=== PATIENT | female | born 1930 | race Caucasian/White ===

== ENCOUNTER 2016-11-21 17:51 | Inpatient (IN) | payer OTHER, MEDICARE ==
[~2016-11-21] VITALS: Ht 152.4 cm; Wt 46.3 kg
[~2016-11-21 17:51] MED LIST: ADULT TUSS100 MG/5 M PO; ALBUTEROL2.5 MG/3 M INH/SOL; ANTIVERT 12.512.5 MG PO; ATIVAN0.5 M1 PO; CIPRO500 M1 PO; DRISDOL50000 UNIT PO; ESCITALOPRAM OXA5 MG PO; FERROUS SULFAT325 M2 PO; FERROUS SULFAT325 M3 PO; FLUTICASON0.05 MG/Ac NASB; KLOR-CON M2020 ME1 PO; LASIX40 M1 PO; LEVOTHYROXINE0.1 MG PO; LEVOTHYROXINE100 MC1 PO; LEXAPRO20 M1 PO; MECLIZINE HCL12.5 M1 PO; MIRTAZAPINE7.5 M1 PO; MUCINEX1200 M1 PO; OMEPRAZOLE40 M1 PO; PREDNISONE10 M2 PO; PROAIR HFA8.5 GM INH; PROBIOTIC1 EACH PO; REGLAN5 M1 PO; REMERON15 M2 PO; SPIRIVA RESPIMAT4 G1 INH; SPIRIVA RESPIMAT4 GM; SUCRETS PO; SYMBICORT 16010.2 GM INH; SYNTHROID112 MCG PO; TRAZODONE HCL50 M1 PO; TUMS200 MG PO; VITAMIN B-121000 MC3 PO; VITAMIN D31000 UNI2 PO
--- NOTE | 2016-11-21 17:55 | NUR ---
PT BIBA FROM [facility] FOR C/O FEELING DIZZY AND SOB. PT WAS 89 ON RA PLACED ON 4L VIA NC SAT INCREASED TO 98%. PT IS ALERT AND ORIENTED. PT REPORTS SHE HAD DIARRHEA LAST EVENING AND STATES SHE DOESN'T EAT MUCH AND SHE FEELS LIKE SHE IS DEHYDRATED./
--- NOTE | 2016-11-21 17:59 | ED DYSPNEA/ASTHMA COMPLAINT ---
History of Present Illness General Chief Complaint: Dyspnea (COPD, CHF, Other) Stated Complaint: SOB Source: patient Exam Limitations: no limitations Vital Signs & Intake/Output Vital Signs & Intake/Output Vital Signs Date Time Temp Pulse Resp B/P Pulse O2 O2 Flow FiO2 Ox Delivery Rate 11/21 2240 94 Nasal 2.0L Cannula 11/21 2230 98.4 93 22 110/61 94 Nasal 2.0L Cannula 11/21 2126 100.9 92 18 119/65 100 Nasal 2.0L Cannula 11/21 1848 95 Nasal 2.0L Cannula 11/21 1803 98.7 87 20 116/55 100 Nasal 3.0L Cannula ED Intake and Output 11/22 0000 11/21 1200 Intake Total 1000 Output Total Balance 1000 Intake, IV 1000 Intake, Oral 0 Patient 102 lb Weight Allergies Coded Allergies: Iodinated Contrast Media - Oral and (Iodinated Contrast Media - IV Dye) (IVP DYE HIVES 03/12/16) Reconcile Medications Albuterol Sulfate (Proair Hfa) 8.5 GM HFA.AER.AD 2 PUF INH Q4H PRN SOB/WHEEZE (Reported) Albuterol Sulfate 2.5 MG/3 ML VIAL.NEB 1 Vial INH/SUSAN Q2H PRN SOB (Reported) Budesonide/Formoterol Fumarate (Symbicort 160-4.5 Mcg Inhaler) 10.2 GM HFA.AER.AD 2 PUF INH BID COPD (Reported) Calcium Carbonate (TUMS) (Unknown Strength) TAB.CHEW (Unknown Dose) PO AD GI (Reported) Calcium Polycarbophil (Fibercon) 625 MG TABLET 1 TAB PO HS PRN PRN BOWEL ( Reported) Cephalexin 500 MG CAPSULE 1 CAP PO BID UTI Cholecalciferol (Vitamin D3) 1,000 UNIT TABLET 1 TAB PO DAILY SUPPLEMENT ( Reported) Cyanocobalamin (Vitamin B-12) 1,000 MCG TABLET 1 TAB PO DAILY VITAMIN SUPPORT (Reported) Docusate Sodium (Colace) 100 MG CAPSULE 1 CAP PO EVERY OTHER DAY BOWEL REGIMEN (Reported) Ergocalciferol (Vitamin D2) (Drisdol) 50,000 UNIT CAPSULE 1 CAP PO Q30D SUPPLEMENT (Reported) Escitalopram Oxalate (Lexapro) 20 MG TABLET 1 TAB PO DAILY DEPRESSION ( Reported) Ferrous Sulfate 325 MG TABLET 1 TAB PO QHS SUPPLEMENT (Reported) Furosemide (Lasix) 20 MG TABLET 1 TAB PO PRN PRN FLUID (Reported) Guaifenesin (Adult Tussin Chest Congestion) (Unknown Strength) LIQUID (Unknown Dose) PO AD COUGH (Reported) Levothyroxine Sodium 100 MCG TABLET 1 TAB PO DAILY THYROID (Reported) Loratadine/Pseudoephedrine (Claritin-D 12 Hour Tablet) 5 MG-120 MG TAB.ER.12H 1 TAB PO QAM PRN PRN ALLERGIES (Reported) Melatonin 3 MG TABLET 1 TAB PO QPM PRN INSOMNIA (Reported) Omeprazole 40 MG CAPSULE.DR 1 CAP PO DAILY ACID REFLUX (Reported) Potassium Chloride (Klor-Con M20) 20 MEQ TAB.ER.PRT 1 TAB PO PRN PRN REPLENISHMENT (Reported) Sennosides (Senna) 8.6 MG TABLET 1 TAB PO HS PRN PRN CONSTIPATION (Reported) [SUCRETS ORIGINAL] 2.4 MG PO QD PRN SORE THROAT (Reported) Tiotropium [place] (Spiriva Respimat) 4 GM MIST.INHAL 1 PUFF INH DAILY COPD ( Reported) Trazodone HCl 50 MG TABLET 0.5 TAB PO QHS PRN ANXIETY (Reported) Triage Note: PT BIBA FROM [facility] FOR C/O FEELING DIZZY AND SOB. PT WAS 89 ON RA PLACED ON 4L VIA NC SAT INCREASED TO 98%. PT IS ALERT AND ORIENTED. PT REPORTS SHE HAD DIARRHEA LAST EVENING AND STATES SHE DOESN'T EAT MUCH AND SHE FEELS LIKE SHE IS DEHYDRATED./ Triage Nurses Notes Reviewed? yes HPI: This patient is an 86-year-old female with a past medical history including hypertension and COPD who presented to the emergency department today brought in by ambulance from an [facility] for evaluation of difficulty breathing and dizziness. 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 The patient reported that while she was on the elevator yesterday she started to feel dizzy. She reported that she started to fall, "but I caught myself." She denied hitting her head or losing consciousness. The patient reported that today her breathing feels, "not right. " She denied any chest pain, headaches, arm pain, numbness or tingling in her extremities, jaw pain, abdominal pain, or vomiting. She did report some mild associated nausea. Patient reported that she has been having some diarrhea, but reported that she is currently on a stool softener and, "that usually makes me have diarrhea." (ISI RODGERS PA-C) Past History Medical History Any Pertinent Medical History? see below for history Neurological: NONE EENT: macular degeneration Cardiovascular: hypertension, mitral regurgitation (SEVERE) Respiratory: COPD, pulmonary hypertension Gastrointestinal: NONE Hepatic: NONE Renal: NONE Musculoskeletal: disk herniation, spinal stenosis Psychiatric: anxiety, depression Endocrine: hypothyroidism Blood Disorders: PERNICIOUS ANEMIA Cancer(s): NONE LADLER/Reproductive: NONE History of MRSA: No History of VRE: No History of CDIFF: No Tetanus Vaccine: 11/01/15 Surgical History Surgical History: hysterectomy, spinal surgery Psychosocial History Who do you live with Spouse Services at Home Nursing What is your primary language [place] Family History Family History, If Any: FATHER (Colon Cancer, ). MOTHER (RA, ). Hx Contributory? No (ISI RODGERS PA-C) Review of Systems Review of Systems Constitutional: Reports: no symptoms. EENTM: Reports: no symptoms. Respiratory: Reports: see HPI. Cardiovascular: Reports: no symptoms. GI: Reports: see HPI. Genitourinary: Reports: no symptoms. Musculoskeletal: Reports: no symptoms. Skin: Reports: no symptoms. Neurological/Psychological: Reports: no symptoms. All Other Systems: Reviewed and Negative (ISI RODGERS PA-C) Physical Exam Physical Exam Respiratory: normal breath sounds, chest non-tender, no respiratory distress, quiet respiration, no wheezes, rales, or rhonchi. No diminished breath sounds appreciated Comments: Well-developed well-nourished person in no acute distress HEENT: Normal EENT exam, head normocephalic/atraumatic, moist mucous membranes Nose is atraumatic Neck: Supple, no lymphadenopathy Back: Normal inspection Cardiovascular: Regular rate and rhythm with no murmurs, rubs, or gallops. No JVD. No peripheral edema noted. Capillary refill less than 2 seconds Abdomen: Soft. Nontender. Nondistended. Normoactive bowel sounds. No rebound or guarding Extremity: No edema, no calf tenderness to palpation, normal and equal pulses. Neuro: Alert oriented x3, cranial nerves II through XII grossly intact. Skin: No appreciable rash on exposed skin, skin is warm and dry. Psych: Mood and affect is normal Core Measures ACS in differential dx? Yes Severe Sepsis Present: No Septic Shock Present: No (ANA MARIA PEREZ,ISI) Progress Differential Diagnosis: asthma, AMI, bronchitis, costochondritis, CHF, COPD, musculoskeletal pain, pericarditis, pulmonary embolism, pneumonia, pneumothorax, unstable angina Plan of Care: Orders Procedure Date/time Status Nothing by Mouth 11/22 B Active Nothing by Mouth 11/21 D Complete Pathway - chart 11/21 2258 Active House Staff 11/21 2258 Active Patient Data 11/21 2258 Active Code Status 11/21 2258 Active Teach/Educate 11/21 2223 Active Nutritional Intake, Monitor 11/21 2223 Active Isolation 11/21 2223 Active Patient Care Conference 11/21 2223 Active Activity/Ambulation 11/21 2223 Active EKG 11/21 2129 Active URINE OSMOLALITY 11/21 2036 Complete Patient Data 11/21 195 Active MISTAKE 11/21 1918 Active Saline Lock 11/21 1914 Active Misc Message 11/21 1914 Active ED Holding Orders 11/21 1914 Active Admit to inpatient 11/21 191 Active Vital Signs 11/21 1914 Active Code Status 11/21 191 Complete SERUM OSMOLALITY 11/21 1818 Complete Intake & Output 11/21 1813 Active ARTERIAL BLOOD GAS (GEN) 11/21 1800 Complete BLOOD CULTURE 11/21 1800 Active URINALYSIS 11/21 1800 Complete TROPONIN LEVEL 11/21 1800 Complete MAGNESIUM 11/21 1800 Complete LACTIC ACID 11/21 1800 Complete COMPREHENSIVE METABOLIC PANEL 11/21 1800 Complete CBC WITHOUT DIFFERENTIAL 11/21 1800 Complete EKG 11/21 1800 Active SWALLOW EVALUATION 11/21 UNK Active TRC EVALUATION (GEN) 11/21 UNK Active Lab Add-on Test 11/21 UNK Active Current Medications Sig/Keesha Start time Last Medication Dose Stop Time Status Admin Cholecalciferol 1,000 IU DAILY 11/22 1000 AC (Vitamin D) Cyanocobalamin 1,000 MCG DAILY 11/22 1000 AC (Vitamin B12) Escitalopram Oxalate 10 MG DAILY 11/22 1000 AC (Lexapro) Tiotropium [place] 1 PUF DAILY 11/22 1000 AC (Spiriva) Omeprazole 40 MG DAILY AC 11/22 0700 AC (Prilosec) Heparin Sodium 5,000 UNIT Q8 11/22 06 AC (Porcine) Albuterol Sulfate 3 ML Q4 HRS NEEDED PRN 11/21 2315 AC (Proventil) Laboratory Tests 11/21/16 2100: Lactic Acid Cancelled 11/21/162036: Urine Osmolality 267 L 11/21/162036: Urine Color YEL, Urine Clarity HAZY H, Urine pH 6.0, Ur Specific Cyp[place] 1.010, Urine Protein 100 H, Urine Ketones NEG, Urine Nitrite NEG, Urine Bilirubin NEG, Urine Urobilinogen 0.2, Ur Leukocyte Esterase LARGE H, Ur Microscopic SEDIMENT EXAMINED, Urine RBC 15-25 H, Urine WBC > 75 H, Ur Epithelial Cells MANY H, Urine Hemoglobin SMALL H, Urine Glucose NEG 11/21/161817: Anion Gap 9, Estimated GFR 39 L, BUN/Creatinine Ratio 25.4 H, Glucose 98, Serum Osmolality 282 L, Lactic Acid 1.3, Calcium 8.8, Magnesium 1.6, Total Bilirubin 0.5, AST 17, ALT 28, Alkaline Phosphatase 88, Troponin I 0.03, Total Protein 6.0 L, Albumin 2.9 L, Globulin 3.1, Albumin/Globulin Ratio 0.9 L, CBC w Diff MAN DIFF ORDERED, RBC 4.36, MCV 81.4, MCH 27.0, RDW 15.3 H, MPV 7.2 L, Gran % 93.2 H, Lymphocytes % 2.2 L, Monocytes % 4.5, Eosinophils % 0, Basophils % 0.1, Absolute Granulocytes 24.3 H, Segmented Neutrophils 80 H, Band Neutrophils 12 H, Absolute Lymphocytes 0.6 L, Lymphocytes 2 L, Monocytes 6, Absolute Monocytes 1.2 H, Absolute Eosinophils 0, Absolute Basophils 0, Platelet Estimate ADEQUATE, Normochromic RBCs VERIFIED, Anisocytosis 1+, PUBS MCHC 33.2 11/21/161814: pH 7.48 H, pCO2 34 L, pO2 68 L, HCO3 25, ABG O2 Sat (Measured) 94.0 L, P-50 (Temp Corrected) Y, Carboxyhemoglobin 0.4 L, O2 Concentration % RM/AIR, Temperature 98.3, O2 Delivery Method RA, Phlebotomy Draw Site RIGHT RADIAL Microbiology 11/21 1848 BLOOD: Blood Culture - RECD 11/21 1817 BLOOD: Blood Culture - RECD Diagnostic Imaging: Viewed by Me: Radiology Read. Discussed w/RAD: Radiology Read. CXR Impression: PATIENT: DHEERAJ ZAMUDIO PRESENT AGE: 86 PATIENT ACCOUNT NO: [id number] : 31 LOCATION: [facility] ORDERING PHYSICIAN: IIS RODGERS PA-C SERVICE DATE: 11/21/16 EXAM TYPE: RAD - XRY-PORTABLE CHEST XRAY EXAMINATION: XR PORTABLE CHEST CLINICAL INFORMATION: Evaluate for pneumonia COMPARISON: Chest x-rays most recent prior dated 2015 TECHNIQUE: Portable AP view of the chest was obtained. FINDINGS: Cardiomegaly with mild prominence of the pulmonary markings compatible with chronic change. Left basilar opacity also seen on the previous examination demonstrating improved aeration in the left lateral base. No acute airspace opacity. Bony thorax is intact. IMPRESSION: Chronic changes. No acute airspace disease. DICTATED BY: BRADY ENCARNACION MD DATE/TIME DICTATED:11/21/161825 PROC TECH:ENRIQUETA DATE/TIME TRANSCRIBED:11/21/161825 CONFIDENTIAL, DO NOT COPY WITHOUT APPROPRIATE AUTHORIZATION. <Electronically signed in Other Vendor System> SIGNED BY: BRADY ENCARNACION MD 11/21/16 1830 Initial ED EKG: normal intervals, LVH, nonspecific ST T wave chg, 86 BPM (ANA MARIA PEREZ,ISI) Departure Departure Disposition: STILL A PATIENT Condition: Stable Clinical Impression Primary Impression: Hypoxia Secondary Impressions: Acute kidney injury Leukocytosis Qualifiers: Leukocytosis type: unspecified Qualified Code: D72.829 - Elevated white blood cell count, unspecified Referrals: MARTINA ABREU MD (PCP/Family) Departure Forms: Customer Survey General Discharge Information Prescriptions: Current Visit Scripts Cephalexin 1 CAP PO BID #[id number] CAP Admission Note Spoke With: LIDIA HOWARD MDSe Documentation of Exam: Documentation of any treatments & extenuating circumstances including Concerns Regarding Discharge (functional status, medication knowledge or non-compliance, living conditions, etc.) that warrant an admission rather than observation: [ This patient is an 86-year-old female with a past medical history including COPD and pulmonary hypertension who presented to the emergency department today for evaluation of dizziness and shortness of breath. Hypoxic at 87% on room air. This patient is not typically on oxygen at home. White blood cell count 26.1. Respiratory alkalosis. Acute kidney injury with creatinine at 1.3. This patient should be admitted to general medicine for trend labs, pulmonary consultation, gentle hydration, follow up urinalysis and urine culture, follow- up blood culture, oxygen therapy, and close monitoring. Premature discharge could prove medically harmful.] (ANA MARIA PEREZ,ISI) PA/AUTOMOTIVE BRAKE SPECIALIST Co-Sign Statement Statement: ED Attending supervision documentation- [] I saw and evaluated the patient. I have also reviewed all the pertinent lab results and diagnostic results. I agree with the findings and the plan of care as documented in the PA's/AUTOMOTIVE BRAKE SPECIALIST's documentation. x] I have reviewed the ED Record and agree with the PA's/AUTOMOTIVE BRAKE SPECIALIST's documentation. [] Additions or exceptions (if any) to the PAs/AUTOMOTIVE BRAKE SPECIALIST's note and plan are summarized below: [] (RENETTA CABAN,ANA High) Critical Care Note Critical Care Note Critical Care Time: 30-74 min (ANA MARIA PEREZ,ISI)
--- NOTE | 2016-11-21 18:29 | NUR ---
EVALUATED BY LEN RODGERS. EKG DONE.
--- NOTE | 2016-11-21 18:30 | RADIOLOGY REPORT ---
EXAMINATION: XR PORTABLE CHEST CLINICAL INFORMATION: Evaluate for pneumonia COMPARISON: Chest x-rays most recent prior dated 07/11/2016 TECHNIQUE: Portable AP view of the chest was obtained. FINDINGS: Cardiomegaly with mild prominence of the pulmonary markings compatible with chronic change. Left basilar opacity also seen on the previous examination demonstrating improved aeration in the left lateral base. No acute airspace opacity. Bony thorax is intact. IMPRESSION: Chronic changes. No acute airspace disease.
--- NOTE | 2016-11-21 18:47 | NUR ---
PT STATES SHE IS LEGALLY BLIND; ALSO REPORTS SHE ALMOST FELL YESTERDAY DUE TO DIZZINESS.
[2016-11-21 18:54] LABS: ABSOLUTE BASOPHIL COUNT 0 /CUMM (0.0-0.2); ABSOLUTE EOSINOPHIL COUNT 0 /CUMM (0.0-0.7); ABSOLUTE GRANULOCYTE CT 24.3 /CUMM (1.4-6.5); ABSOLUTE LYMPH COUNT 0.6 /CUMM (1.2-3.4); ABSOLUTE MONOCYTE COUNT 1.2 /CUMM (0.10-0.60); BASOPHIL % 0.1 % (0.0-2.0); EOSINOPHIL % 0 % (0-5); GRANULOCYTE % 93.2 % (42.2-75.2); HEMATOCRIT 35.5 % (37-47); MEAN CORPUSCULAR HGB CONC 33.2 G/DL (33.0-37.0); MEAN CORPUSCULAR VOLUME 81.4 FL (81.0-99.0); MEAN PLATELET VOLUME 7.2 FL (7.4-10.4); PLATELET COUNT 246 /CUMM (130-400); RBC DISTRIBUTION WIDTH 15.3 % (11.5-14.5); RED BLOOD CELL CT 4.36 /CUMM (4.20-5.40); WHITE BLOOD CELL COUNT 26.1 /CUMM (4.8-10.8)
--- NOTE | 2016-11-21 19:06 | NUR ---
RECEIEVED REPORT FROM BRIANA CHAN, ASSUMED PT CARE AT THIS TIME, PT RESTING IN STRETCHER, WILL CONTINUE TO MONITOR
--- NOTE | 2016-11-21 20:14 | NUR ---
HOUSE STAFF AT BEDSIDE FOR PT EVAL
--- NOTE | 2016-11-21 20:37 | NUR ---
PT PLACED ON BED WANG FOR URINE SAMPLE BY THIS RN AND BRIANA CHAMPION. PT CLEANED AND REPOSITIONED FOR COMFORT.
--- NOTE | 2016-11-21 21:03 | NUR ---
TELEVISION TURNED ON TO THE NEWS PER PT REQUEST.
--- NOTE | 2016-11-21 21:28 | NUR ---
PT TO ROOM 216 BED 1
--- NOTE | 2016-11-21 21:58 | NUR ---
REPORT GIVEN TO BRIANA COWART
[2016-11-21 22:30] VITALS: BP 110/61
--- NOTE | 2016-11-21 22:30 | History & Physical ---
ALEENA CABAN,MIGUEL 11/21/16 2230: General Information and HPI MD Statement: I have seen and personally examined DHEERAJ ZAMUDIO and documented this H&P. The patient is a 86 year old F who presented with a patient stated chief complaint of [dizziness]. Source of Information: patient Exam Limitations: no limitations History of Present Illness: Patient is a 86-year-old lady who is BIBA to the ED due to dizziness and feeling weak. Patient reports that last night as she was walking to get to the elevator she felt dizzy and started to fall, however did not lose consciousness and did not fall. also denies chest pain, palpitation, SOB. Reports coughing and bringing up small amount of sputum, which is white and thick and is not worsened recently. Patient denies headache, denies fever, chills, abdominal pain, nausea vomiting. Denies dysuria but reports frequency and nocturia. Reports poor appetite. Denies constipation or diarrhea but uses stool softened and reports loose stools. Of not patient is blind on the left eye and has impaired vision on the right side. she does not know about changes in the urine, or if there has been blood in the urine. Patient was recently admitted to [facility] in March 2016 due to hypotension and was diagnosed with CHF and acute COPD exacerbation. she was also found to be hyponatremic and hypokalemic. Since then she gets SOB on ambulation, but it has not worsened recently. Also uses two pillows while sleeping which has not changed recently. Patient follows with Dr. Flores. Also patient gives a recent history of UTI in October. Allergies/Medications Allergies: Coded Allergies: Iodinated Contrast Media - Oral and (Iodinated Contrast Media - IV Dye) (IVP DYE HIVES 03/12/16) Home Med list Albuterol Sulfate (Proair Hfa) 8.5 GM HFA.AER.AD 2 PUF INH Q4H PRN SOB/WHEEZE (Reported) Albuterol Sulfate 2.5 MG/3 ML VIAL.NEB 1 Vial INH/SUSAN Q2H PRN SOB (Reported) Budesonide/Formoterol Fumarate (Symbicort 160-4.5 Mcg Inhaler) 10.2 GM HFA.AER.AD 2 PUF INH BID COPD (Reported) Calcium Carbonate (TUMS) (Unknown Strength) TAB.CHEW (Unknown Dose) PO AD GI (Reported) Cholecalciferol (Vitamin D3) 1,000 UNIT TABLET 1 TAB PO DAILY SUPPLEMENT ( Reported) Cyanocobalamin (Vitamin B-12) 1,000 MCG TABLET 1 TAB PO DAILY VITAMIN SUPPORT (Reported) Ergocalciferol (Vitamin D2) (Drisdol) 50,000 UNIT CAPSULE 1 CAP PO Q30D SUPPLEMENT (Reported) Escitalopram Oxalate (Lexapro) 10 MG TABLET 1 TAB PO DAILY MENTAL HEALTH ( Reported) Ferrous Sulfate 325 MG TABLET 1 TAB PO QHS SUPPLEMENT (Reported) Guaifenesin (Adult Tussin Chest Congestion) (Unknown Strength) LIQUID (Unknown Dose) PO AD COUGH (Reported) Levothyroxine Sodium 100 MCG TABLET 1 TAB PO DAILY THYROID (Reported) Metoclopramide HCl (Reglan) 5 MG TABLET 1 TAB PO Q6H GERD/VOMITING TAKE 30 MINUTES PRIOR TO EATING AND PRIOR TO BEDTIME Mirtazapine (Remeron) 15 MG TABLET 1 TAB PO QHS SLEEP (Reported) Omeprazole 40 MG CAPSULE.DR 1 CAP PO DAILY GERD Tiotropium [place] (Spiriva Respimat) 4 GM MIST.INHAL 1 PUFF INH DAILY COPD ( Reported) Trazodone HCl 50 MG TABLET 0.5 TAB PO Q4H PRN ANXIETY (Reported) Past History Travel History Traveled to [place] past 21 day No Medical History Neurological: NONE EENT: macular degeneration Cardiovascular: hypertension, mitral regurgitation (SEVERE) Respiratory: COPD, pulmonary hypertension Gastrointestinal: NONE Hepatic: NONE Renal: NONE Musculoskeletal: disk herniation, spinal stenosis Psychiatric: anxiety, depression Endocrine: hypothyroidism Blood Disorders: PERNICIOUS ANEMIA Cancer(s): NONE PRESSURE DISPATCHER/Reproductive: NONE History of MRSA: No History of VRE: No History of CDIFF: No Tetanus Vaccine: 11/01/15 Surgical History Surgical History: hysterectomy, spinal surgery Past Family/Social History Family History Relations & Conditions if any FATHER (Colon Cancer, ). MOTHER (RA, ). Psychosocial History Services at Home: Nursing Primary Language: Nepalese Smoking Status: Former Smoker (heavy smoker,quit 8 months ago) ETOH Use: denies use Living Will? yes Power of Senior Stereo Compiler Team Lead/HCP? no Functional Ability ADLs Independent: dressing, eating, toileting, bathing. Ambulation: independent (has walker does not use it) IADLs Independent: shopping, housework, finances, food prep, telephone. Needs Assist: transportation (in assisted living facilily), medication admin. Review of Systems Review of Systems Constitutional: Reports: malaise, weakness. Denies: chills, diaphoresis, fever. EENTM: Reports: blurred vision. Denies: visual changes, hearing changes, throat pain, throat swelling. Cardiovascular: Denies: chest pain, palpitations, peripheral edema, syncope (near syncope). Respiratory: Reports: sputum production. Denies: cough (thick and white, small amount). GI: Denies: abdominal pain, constipation, diarrhea, nausea, bloody stool, changes in stool, vomiting. Genitourinary: Reports: frequency, nocturia. Denies: dysuria. Musculoskeletal: Denies: back pain, joint pain, joint swelling. Skin: Reports: no symptoms. Neurological/Psychological: Denies: anxiety, depressed, headache, numbness, weakness. Hematologic/Endocrine: Reports: polyuria. Denies: bruising, bleeding, polydipsia. Immunologic/Allergic: Reports: no symptoms. Exam & Diagnostic Data Last 24 Hrs of Vital Signs/I&O Vital Signs Date Time Temp Pulse Resp B/P Pulse O2 O2 Flow FiO2 Ox Delivery Rate 11/21 2240 94 Nasal 2.0L Cannula 11/21 2230 98.4 93 22 110/61 94 Nasal 2.0L Cannula 11/21 2126 100.9 92 18 119/65 100 Nasal 2.0L Cannula 11/21 1848 95 Nasal 2.0L Cannula 11/21 1803 98.7 87 20 116/55 100 Nasal 3.0L Cannula Intake & Output 11/22 0800 11/22 0000 11/21 1600 Intake Total 1000 Output Total 300 Balance -300 1000 Intake, IV 1000 Intake, Oral 0 Output, Urine 300 Patient 46.266 kg Weight Physical Exam General Appearance Alert, Oriented X3, Cooperative, No Acute Distress Skin yhpopigmented lesions on the skin of the upper trunk and neck as well as upper extremities HEENT Atraumatic, PERRLA, EOMI, dry mucous membranes Neck Supple Cardiovascular Regular Rate, Normal S1, Normal S2, 2/6 systolic murmur Lungs decreased breath sounds, no wheezinf or rhonchi, no crackles Abdomen Normal Bowel Sounds, Soft, No Tenderness, No Hepatospenomegaly, no CVA tenderness Neurological Normal Speech, Strength at 5/5 X4 Ext, Normal Tone, Sensation Intact, Cranial Nerves 3-12 NL Extremities No Clubbing, No Cyanosis, No Edema, Normal Pulses, No Tenderness/ Swelling Vascular Normal Pulses, Pulses Symmetrical Last 24 Hrs of Labs/Contreras: Laboratory Tests 11/21/16 2100: Lactic Acid Cancelled 11/21/162036: Urine Osmolality 267 L 11/21/162036: Urine Color YEL, Urine Clarity HAZY H, Urine pH 6.0, Ur Specific [place] 1.010, Urine Protein 100 H, Urine Ketones NEG, Urine Nitrite NEG, Urine Bilirubin NEG, Urine Urobilinogen 0.2, Ur Leukocyte Esterase LARGE H, Ur Microscopic SEDIMENT EXAMINED, Urine RBC 15-25 H, Urine WBC > 75 H, Ur Epithelial Cells MANY H, Urine Hemoglobin SMALL H, Urine Glucose NEG 11/21/161817: Anion Gap 9, Estimated GFR 39 L, BUN/Creatinine Ratio 25.4 H, Glucose 98, Serum Osmolality 282 L, Lactic Acid 1.3, Calcium 8.8, Magnesium 1.6, Total Bilirubin 0.5, AST 17, ALT 28, Alkaline Phosphatase 88, Troponin I 0.03, Total Protein 6.0 L, Albumin 2.9 L, Globulin 3.1, Albumin/Globulin Ratio 0.9 L, CBC w Diff MAN DIFF ORDERED, RBC 4.36, MCV 81.4, MCH 27.0, RDW 15.3 H, MPV 7.2 L, Gran % 93.2 H, Lymphocytes % 2.2 L, Monocytes % 4.5, Eosinophils % 0, Basophils % 0.1, Absolute Granulocytes 24.3 H, Segmented Neutrophils 80 H, Band Neutrophils 12 H, Absolute Lymphocytes 0.6 L, Lymphocytes 2 L, Monocytes 6, Absolute Monocytes 1.2 H, Absolute Eosinophils 0, Absolute Basophils 0, Platelet Estimate ADEQUATE, Normochromic RBCs VERIFIED, Anisocytosis 1+, PUBS MCHC 33.2 11/21/161814: pH 7.48 H, pCO2 34 L, pO2 68 L, HCO3 25, ABG O2 Sat (Measured) 94.0 L, P-50 (Temp Corrected) Y, Carboxyhemoglobin 0.4 L, O2 Concentration % RM/AIR, Temperature 98.3, O2 Delivery Method RA, Phlebotomy Draw Site RIGHT RADIAL Microbiology 11/21 1848 BLOOD: Blood Culture - RECD 02/10 1818 BLOOD: Blood Culture - RECD Assessment/Plan Assessment: Patient is a 86-year-old lady with past medical history of recently diagnosed CHF, COPD (not on home O2), HTN, hypothyroidism (on synthroid), pernicious anemia, RA, macular degeneration and depression/anxiety who was BIB[facility] to [facility] after an episode of dizziness and near syncope as well as feeling generally weak. Patient denies palpitation, CP or SOB. Reports frequency, nocturia and loose stool. In the ED patient is found to have temperature 100.9, leukocytosis (WBC of 26.1 ), elevated creatinine 1.3 (0.7 at baseline ), UA is hazy, has high protein ( 100 mg/dl) and is high in leukocyte esterase, RBCs, WBCs, small in hemoglobin. Lactic acid is 1.3. Patient is also found to have hyponatremia at 128, with urine osmolality of 267 serum osmolality of 282. Chest X-ray shows chronic changes with no acute airspace disease. Please obtain medical records from his ECF tomorrow AM. Problem list and plan: Sepsis of urologic origin Fever and leukocytosis & active UA and negative CXR suggesting sepsis in the setting of UTI. * Vital signs every shift * IV access and IV fluids * IV ceftriaxone to cover gram-negative bacteria * Urine culture * Blood culturex2 MEGAN Elevated creatinine and BUN/creatinine ratio suggesting a prerenal cause including dehydration and CHF. Patient's clinical findings and CXR are not in accord with CHF. * IV normal saline and encourage drinking * follow up BEP in AM * consider Hyponatremia Patient appears hypovolemic with dry mucous membranes, not volume overloaded. most likely etiology is volume loss from frequent loose stools. hyponatremia with low serum osmolality also could be caused by her hypothyroidism * we will give IV fluids and re-evaluate Na in AM * check TSH and free T4 History of CHF and pulmonary hypertension Patient follows with Dr. Flores. Last ECHO was performed in July 2016 and reported EF of 60-65%. Currently appears stable with no evidence of increased SOB, crackles in lungs, LE edema or CXR findings. * Consider cardiology consult and a repeat ECHO History of COPD Currently stable. She has quit smoking since 8 months ago that she was hospitalized for COPD and CHF exacerbation. Not on home oxygen. * Continue Spiriva, Symbicort, Proventil History of hypothyroidism * Continue levothyroxine * Check TSH and free T4 History of anxiety and depression * Continue mirtazapine, trazodone and Lexapro DVT prophylaxis with subcutaneous heparin NPO until after swallow eval DNR/DNI As Ranked By This Provider Problem List: 1. Dizziness 2. Hyponatremia 3. CHF (congestive heart failure) 4. COPD (chronic obstructive pulmonary disease) 5. Hypokalemia 6. Anxiety 7. Depression Core Measures/Miscellaneous Acute Coronary Syndrome ACS Diagnosis: No Cerebrovascular Accident CVA/TIA Diagnosis: No Congestive Heart Failure CHF Diagnosis: No Venous Thromboembolism VTE Risk Factors: Acute medical illness, Age > 40 VTE Prophylaxis Ordered Inpt: [facility] prophylaxis d/t: No contraindications No VTE Pharm Prophylaxis d/t: No contraindications VTE Diagnosis: No VTE Type: NONE VTE Confirmed by (Test): NONE Severe Sepsis Severe Sepsis Present: No Septic Shock Septic Shock Present: No Miscellaneous Documentation Attending Case Discussed With: RADHA HOWARD MD Primary Care Physician: MARTINA ABREU MD Patient sees these Specialists Dr. Flores, cardiology Level of Patient Care: General Medicine LIDIA HOWARD MD 11/21/16 2251: Attending MD Review Statement Attending Statement Attending MD Statement: examined this patient, discuss w/resident/PA/METAL TANK BUILDER, agreed w/resident/PA/METAL TANK BUILDER Attending Assessment/Plan: 86 yo F from [facility] (assisted living), with h/o COPD, chronic HfpEF, moderate to severe mitral regurgitation, hypothyroidism, pernicious anemia, macular degeneration, legally blind, is here for evaluation of dizziness and exertional dyspnea. This is associated with nausea, cough productive of whitish mucoud sputum. No fall, head strike or LOC. She reports being treated for UTI 3 weeks ago, and currently continues to have urinary frequency, but no dysuria. She also has been having difficulty with swallowing food. She has noticed that food stays in her throat a few hours after eating and she ends vomiting it up. She also noted diarrhea for the past week after taking stool softeners. She was last admitted to [facility] (2016) for orthostatic hypotension requiring reduction in her lasix dose. Vitals: O2 sats 88% RA --> 94% on 2L, Tmax 100.9, HR 90's, BP 110/61. Exam: awake, alert, oriented to person, not time or place. Scoliosis+. Dry mucous membranes. Chest: chronic cyst on anterior chest wall, rhonchi to left posterior base, otherwise clear, Heart S1S2 regular, systolic murmur+, Abd soft, NT. Labs: WBC 26.1, bands 12, BUN 33, creat 1.3 (baseline 0.8), Na 128, lactic acid 1.3, trop neg, ABG 7.48/34/68/25. UA positive with WBC> 75, large leukocyte esterase. CXR: chronic changes of left basilar opacity, no acute disease. EKG: SR. Echo ( 2016): EF 60-65%, moderate to severe mitral insufficiency with left atrial enlargement, pulm hypertension. 1. Sepsis (leukocytosis, bandemia, fever) with no lactic acidosis in the setting of UTI. Patient was noted to be hypoxic on ER arrival, likely in the setting of sepsis. However, cannot rule out aspiration. No evidence of pneumonia, CHF or COPD exacerbation. Her severe MR with pulmonary hypertension could be causing her exertional dyspnea as well. GM admit, panculture, aspiration and fall precautions. Check orthostats given her c/o dizziness. NPO, swallow eval in AM. Based on previous urine culture, she has grown Klebsiella hence will cover with IV ceftriaxone. Gentle hydration, avoid fluid overload. TRC nebs. Obtain Echo and Cardiology consult. Check TSH and free T4, continue synthroid. 2. MEGAN with hypovolemic hyponatremia. Check urine and serum osmolality, urine lytes. Gentle hydration, monitor renal functions. Avoid NSAIDs. Hold lasix. 3. Diarrhea in the setting of use of stool softeners. If persistent, will consider checking stool studies. 4. Previous CT evidence of adrenal nodules. Unclear if she had outpatient follow up with repeat imaging per Endo recs during her last admission. DVT ppx Hep SC. DNR/I. Please confirm CMR in AM from [facility]. BRENT LAZAR MD 11/22/16 0453: Resident Review Statement Resident Statement: examined this patient, discussed with advertising intern, agreed with advertising intern Other Findings: 86-year-old female with moderate/severe MR, hypertension, COPD, hypothyroidism, rashes anemia, presents to the ER complaining of dizziness. Stating that she felt dizzy and was about to fall however was able to avoid this and decided to come in for further evaluation. Denies chest pain, palpitations, shortness of breath admits to bringing up minimal to moderate amount of sputum which is white in color. Also reports increased frequency of her urination along with waking up multiple times at night to urinate. Denies nausea vomiting diarrhea or abdominal pain We will admit her to general medicine floor for presumed sepsis urological origin. In the past her urine culture has grown Klebsiella we will start her on IV ceftriaxone continue to hydrate her and monitor. It is possible that she may have developed aspiration pneumonia we will keep her nothing by mouth for now and get a swallow evaluation a.m. we will also monitor her white count has been treating her for UTI and may need to change antibiotics. Renal function, creatinine 1.3 we will hydrate her and monitor renal function along with watching her serum sodium levels. Must also keep into consideration the fact that her shortness of breath may be due to a component of worsening MR and this will need to be evaluated further. Would recommend an echocardiogram and cardiology consultation. DVT prophylaxis heparin subcutaneous. DNR/DNI. We'll need to confirm medications in a.m.
--- NOTE | 2016-11-21 22:53 | Admission Certification ---
Admission Certification Certification Statement - As attending physician, I certify that at the time of - admission, based on clinical presentation, severity of - symptoms, need for further diagnostic testing and - therapeutic interventions, and risk of adverse outcomes - without in-hospital treatment, in my clinical assessment, - this patient requires an acute hospital stay for a minimum - of two nights or longer. I have also considered psychsocial - factors such as support system, advanced age, financial - issues, cognitive issues, and failed out-patient treatments, - past re-admission history, safety of patient, and lack of - compliance as applicable. Specific rationale supporting this admission is: Sepsis secondary to UTI. Hypoxia cannot rule out aspiration. Acute kidney injury with hyponatremia.
--- NOTE | 2016-11-22 02:06 | NUR ---
LATE ENTRY NURSING NOTE: WHILE PROCESSING PT ADMISSION, THSI RN WAS ATTEMPTING TO CONFIRM PT FULL CODE STATUS AND PT STATED SHE DID NOT WANT THAT SHE WANTED TO BE A DNR. THIS RN SENT TEXT PAGE TO THE MOLECULAR SPECTROSCOPIST ENERGY AUDITOR TO ADVISE.
--- NOTE | 2016-11-22 02:57 | NUR ---
LATE ENTRY NURSING NOTE: PT ARRIVED TO THE FLOOR VIA STRETCHER WITHOUT WITH NO FAMILY AT THE BEDSIDE AT 2225. PT ALERT TO SELF. PT CANNOT RECALL NAME OF THE FACILITY SHE CAME FROM, CAN NOT STATE THE NAME OF THE HOSPITAL SHE IS IN, AND, STATED THE MONTH WAS JANUARY NOT NOVEMBER. PT FOLLOWED UP STATING "I KNOW I'M CONFUSED RIGHT NOW". PT ON 2LNC, LUNGS CLEAR IN UPPER LOBES, DI IN BASES. PT HAS #22 IV IN HER LF FLUSHES WELL. HUNG IVF ORDERED. PT HAS LARGE CHRONIC CYST ON HER CHEST MIDSTERNUM, NOT DRAINING. PT IS LEGALLY BLIND IN LT EYE. PLACED BED ALARM. PT CONTINENT, USES BEDPAN AND WEARS BRIEF. VSS. PT ARRIVED WEARING HER OWN TEDS. PLACED ALPS. ORIENTED PT TO ROOM. PT CONFIRMED SHE KNOWS HOW TO USE THE CALL REYNOLDS. BED IN LOWEST POSITION. WILL CONTINUE TO MONITOR.
[2016-11-22 07:10] VITALS: BP 114/62
[2016-11-22 12:52] LABS: ABSOLUTE BASOPHIL COUNT 0 /CUMM (0.0-0.2); ABSOLUTE EOSINOPHIL COUNT 0 /CUMM (0.0-0.7); ABSOLUTE GRANULOCYTE CT 20.5 /CUMM (1.4-6.5); ABSOLUTE LYMPH COUNT 0.4 /CUMM (1.2-3.4); ABSOLUTE MONOCYTE COUNT 1.1 /CUMM (0.10-0.60); BASOPHIL % 0 % (0.0-2.0); EOSINOPHIL % 0 % (0-5); GRANULOCYTE % 93.2 % (42.2-75.2); HEMATOCRIT 32.3 % (37-47); MEAN CORPUSCULAR HGB CONC 33.3 G/DL (33.0-37.0); MEAN CORPUSCULAR VOLUME 81.1 FL (81.0-99.0); MEAN PLATELET VOLUME 7.5 FL (7.4-10.4); PLATELET COUNT 216 /CUMM (130-400); RBC DISTRIBUTION WIDTH 15.2 % (11.5-14.5); RED BLOOD CELL CT 3.98 /CUMM (4.20-5.40)
--- NOTE | 2016-11-22 13:31 | PN- Housestaff ---
Subjective Follow-up For: Sepsis UTI Subjective: Patient is seen and examined at bedside. She is awake and alert, patient denies any complaints of fever, chills, dysuria, nausea, vomiting, chest pain, palpitation, or abdominal pain. No Acute overnight event reported by nursing staff. Review of Systems Constitutional: Reports: see HPI. Objective Last 24 Hrs of Vital Signs/I&O Vital Signs Date Time Temp Pulse Resp B/P Pulse O2 O2 Flow FiO2 Ox Delivery Rate 11/23 0010 98.0 80 20 110/60 97 Nasal 2.0L Cannula 11/23 0000 Nasal 2.0L Cannula 11/22 1958 98 Nasal 2.0L Cannula 11/22 1600 97 Nasal 2.0L Cannula 11/22 1445 98.6 88 20 116/68 98 Nasal 2.0L Cannula 11/22 1238 98 Nasal 2.0L Cannula 11/22 1145 Nasal 2.0L Cannula 11/22 0800 Nasal 2.0L Cannula Intake & Output 11/23 0800 11/23 0000 11/22 1600 Intake Total 772 611 2906 Output Total 250 200 400 Balance -130 -80 840 Intake, IV 400 Intake, Oral 120 120 840 Number 0 Bowel Movements Output, Urine 250 200 400 Physical Exam General Appearance: Alert, Cooperative Other Physical Findings: Skin yhpopigmented lesions on the skin of the upper trunk and neck as well as upper extremities HEENT Atraumatic, PERRLA, EOMI, dry mucous membranes Neck Supple Cardiovascular Regular Rate, Normal S1, Normal S2, 2/6 systolic murmur Lungs decreased breath sounds, no wheezinf or rhonchi, no crackles Abdomen Normal Bowel Sounds, Soft, No Tenderness, No Hepatospenomegaly, no CVA tenderness Neurological Normal Speech, Strength at 5/5 X4 Ext, Normal Tone, Sensation Intact, Cranial Nerves 3-12 NL Extremities No Clubbing, No Cyanosis, No Edema, Normal Pulses, No Tenderness/ Swelling Vascular Normal Pulses, Pulses Symmetrical Current Medications: Current Medications Sig/Keesha Start time Last Medication Dose Route Stop Time Status Admin Albuterol Sulfate 3 ML Q4P PRN 11/22 1145 DC INH Albuterol Sulfate 3 ML Q4 HRS NEEDED PRN 11/21 2315 AC 11/22 INH 1143 Azithromycin 250 MG DAILY 11/24 1000 DC PO Azithromycin 250 MG DAILY 11/23 1000 AC PO Azithromycin 500 MG ONCE ONE 11/22 1300 DC 11/22 PO 11/22 1301 1441 Budesonide/ 2 PUF BID 11/21 2301 AC 11/22 Formoterol Fumarate INH 210 Ceftriaxone Sodium 1,000 MG 2200 11/21 2230 AC 11/22 IV 2105 Cholecalciferol 1,000 IU DAILY 11/22 1000 AC 11/22 PO 0903 Cyanocobalamin 1,000 MCG DAILY 11/22 1000 AC 11/22 PO 0903 Escitalopram Oxalate 10 MG DAILY 11/22 1000 AC 11/22 PO 0903 Heparin Sodium 5,000 UNIT Q8 11/22 0600 AC 11/23 (Porcine) SC 0552 Omeprazole 40 MG DAILY AC 11/22 0700 AC 11/23 PO 0552 Sodium Chloride 1,000 ML Q20H 11/21 2230 DC 11/21 IV 11/22 1829 2316 Tiotropium [place] 1 PUF DAILY 11/22 1000 AC 11/22 INH 0904 Trazodone HCl 25 MG Q4H PRN 11/21 2315 AC 11/22 PO 212 Zolpidem Tartrate 10 MG .STK-MED ONE 11/22 2122 DC PO 11/22 2123 Last 24 Hrs of Lab/Contreras Results Last 24 Hrs of Labs/Mics: Laboratory Tests 11/23/16 0725: Sodium Pending, Potassium Pending, Chloride Pending, Carbon Dioxide Pending, Anion Gap Pending, BUN Pending, Creatinine Pending, BUN/Creatinine Ratio Pending , CBC w Diff Pending, WBC Pending, RBC Pending, Hgb Pending, Hct Pending, MCV Pending, MCH Pending, RDW Pending, Plt Count Pending, MPV Pending, PUBS MCHC Pending Assessment/Plan Assessment: Patient is a 86-year-old lady with past medical history of recently diagnosed CHF, COPD (not on home O2), HTN, hypothyroidism (on synthroid), pernicious anemia, RA, macular degeneration and depression/anxiety who was BIBA to [facility] after an episode of dizziness and near syncope as well as feeling generally weak. Patient denies palpitation, CP or SOB. Reports frequency, nocturia and loose stool. Sepsis Fever and leukocytosis & active UA and negative CXR suggesting sepsis in the setting of UTI. * Continue IV ceftriaxone to cover gram-negative bacteria, will also add azithromycin as chest x-ray is not reliable in the setting of hypovolemia. * Will repeat another chest x-ray * Awaiting Urine culture * Awaiting Blood culture results UTI UA suggestive of UTI. Patient is also presenting with leukocytosis. Plan Continue IV ceftriaxone Bacteremia Patient is growing gram-negative rods. Patient UA is suggestive of UTI and she does not endorse any abdominal pain, though she has diarrhea episodes she reports frequent use of stool softener and possible laxatives. Therefore most likely source of the bacteremia is genitourinary. Plan Continue ceftriaxone IV Will monitor for any fever spikes MEGAN Elevated creatinine and BUN/creatinine ratio suggesting a prerenal cause including dehydration and CHF. Patient's clinical findings and CXR are not in accord with CHF. * IV normal saline and encourage drinking * follow up BEP in AM * consider Hyponatremia Patient appears hypovolemic with dry mucous membranes, not volume overloaded. most likely etiology is hypovolemic hyponatremia secondary from volume loss with diarrhea. Unremarkable TSH and T4 levels rules out hypothyroidism as the possible cause. * Will continue hydration * Will trend BEP History of CHF and pulmonary hypertension Patient follows with Dr. Flores. Last ECHO was performed in July 2016 and reported EF of 60-65%. Currently appears stable with no evidence of increased SOB, crackles in lungs, LE edema or CXR findings. * Consider cardiology consult and a repeat ECHO History of COPD Currently stable. She has quit smoking since 8 months ago that she was hospitalized for COPD and CHF exacerbation. Not on home oxygen. * Continue Spiriva, Symbicort, Proventil History of hypothyroidism * Continue levothyroxine * Check TSH and free T4 History of anxiety and depression * Continue mirtazapine, trazodone and Lexapro Problem List: 1. Hyponatremia 2. UTI (urinary tract infection) 3. Sepsis Pain Ratin Pain Location: None Pain Goal: Remain pain free Pain Plan: Acetaminophen mild pain Oxycodone for moderate pain Tomorrow's Labs & Rationales: CBC trending leukocytosis in the setting of UTI BEP trending hyponatremia
[2016-11-22 14:45] VITALS: BP 116/68
--- NOTE | 2016-11-22 16:03 | PN- Att Addend ---
Attending MD Review Statement Attending Statement Attending MD Statement: examined this patient, discuss w/resident/PA/NUTRITION SERVICES ASSISTANT, agreed w/resident/PA/NUTRITION SERVICES ASSISTANT, reviewed EMR data (avail), discussed w/nursing Attending Assessment/Plan: Laboratory Tests 11/22 11/21 0622 2100 Chemistry Sodium (137 - 145 mmol/L) 132 L Potassium (3.5 - 5.1 mmol/L) 3.6 Chloride (98 - 107 mmol/L) 98 Carbon Dioxide (22 - 30 mmol/L) 26 Anion Gap (5 - 16) 8 BUN (7 - 17 mg/dL) 29 H Creatinine (0.5 - 1.0 mg/dL) 1.2 H Estimated GFR (>60 ml/min) 43 L BUN/Creatinine Ratio (7 - 25 %) 24.2 Lactic Acid Cancelled TSH (0.270 - 4.200 uIU/mL) 0.445 Free T4 (0.85 - 1.93 ng/dL) 1.59 Hematology CBC w Diff MAN DIFF ORDERED WBC (4.8 - 10.8 /CUMM) 22.0 H RBC (4.20 - 5.40 /CUMM) 3.98 L Hgb (12.0 - 16.0 G/DL) 10.8 L Hct (37 - 47 %) 32.3 L MCV (81.0 - 99.0 FL) 81.1 MCH (27.0 - 31.0 PG) 27.0 RDW (11.5 - 14.5 %) 15.2 H Plt Count (130 - 400 /CUMM) 216 MPV (7.4 - 10.4 FL) 7.5 Gran % (42.2 - 75.2 %) 93.2 H Lymphocytes % (20.5 - 51.1 %) 1.6 L Monocytes % (1.7 - 9.3 %) 5.2 Eosinophils % (0 - 5 %) 0 Basophils % (0.0 - 2.0 %) 0 L Absolute Granulocytes (1.4 - 6.5 /CUMM) 20.5 H Segmented Neutrophils (42.2 - 75.2 %) 86 H Band Neutrophils (0.0 - 5.0 %) 7 H Absolute Lymphocytes (1.2 - 3.4 /CUMM) 0.4 L Lymphocytes (20.5 - 51.1 %) 3 L Monocytes (1.7 - 9.3 %) 4 Absolute Monocytes (0.10 - 0.60 /CUMM) 1.1 H Absolute Eosinophils (0.0 - 0.7 /CUMM) 0 Absolute Basophils (0.0 - 0.2 /CUMM) 0 Poikilocytosis 1+ Anisocytosis 1+ PUBS MCHC (33.0 - 37.0 G/DL) 33.3 11/21 Urines Urine Color (YEL,AMB,STR) YEL Urine Clarity (CLEAR) HAZY H Urine pH (5.0 - 8.0) 6.0 Ur Specific [place] (1.001 - 1.035) 1.010 Urine Protein (NEG,<30 MG/DL) 100 H Urine Ketones (NEG) NEG Urine Nitrite (NEG) NEG Urine Bilirubin (NEG) NEG Urine Urobilinogen (0.1 - 1.0 EU/dl) 0.2 Ur Leukocyte Esterase (NEG) LARGE H Ur Microscopic SEDIMENT EXAMINED Urine RBC (0 - 5 /HPF) 15-25 H Urine WBC (0 - 2 /HPF) > 75 H Ur Epithelial Cells (NONE,FEW) MANY H Urine Hemoglobin (NEG) SMALL H Urine Osmolality (300 - 1000 MOSM/KG) 267 L Ur Random Creatinine (mg/dL) 47.7 Ur Random Sodium (30 - 90 mmol/L) 14 L Ur Random Potassium (mmol/L) 26.4 Fraction Sodium Excret (<1% %) 0.3 Urine Glucose (N MG/DL) NEG 11/21 11/21 1818 1815 Blood Gas pH (7.35 - 7.45 PH) 7.48 H pCO2 (35 - 45 TORR) 34 L pO2 (80 - 100 TORR) 68 L HCO3 (21 - 28 MEQ/L) 25 ABG O2 Sat (Measured) (>96.0 %) 94.0 L P-50 (Temp Corrected) Y Carboxyhemoglobin (1.5 - 5.0 %) 0.4 L O2 Concentration % RM/AIR Temperature (97.0 - 100.0 FARH) 98.3 O2 Delivery Method RA Chemistry Sodium (137 - 145 mmol/L) 128 L Potassium (3.5 - 5.1 mmol/L) 3.9 Chloride (98 - 107 mmol/L) 91 L Carbon Dioxide (22 - 30 mmol/L) 28 Anion Gap (5 - 16) 9 BUN (7 - 17 mg/dL) 33 H Creatinine (0.5 - 1.0 mg/dL) 1.3 H Estimated GFR (>60 ml/min) 39 L BUN/Creatinine Ratio (7 - 25 %) 25.4 H Glucose (65 - 99 mg/dL) 98 Serum Osmolality (285 - 295 MOSM/KG) 282 L Lactic Acid (0.7 - 2.1 mmol/L) 1.3 Calcium (8.4 - 10.2 mg/dL) 8.8 Magnesium (1.6 - 2.3 mg/dL) 1.6 Total Bilirubin (0.2 - 1.3 mg/dL) 0.5 AST (14 - 36 U/L) 17 ALT (9 - 52 U/L) 28 Alkaline Phosphatase (<127 U/L) 88 Troponin I (< 0.11 ng/ml) 0.03 Total Protein (6.3 - 8.2 g/dL) 6.0 L Albumin (3.5 - 5.0 g/dL) 2.9 L Globulin (1.9 - 4.2 gm/dL) 3.1 Albumin/Globulin Ratio (1.1 - 2.2 %) 0.9 L Hematology CBC w Diff MAN DIFF ORDERED WBC (4.8 - 10.8 /CUMM) 26.1 H RBC (4.20 - 5.40 /CUMM) 4.36 Hgb (12.0 - 16.0 G/DL) 11.8 L Hct (37 - 47 %) 35.5 L MCV (81.0 - 99.0 FL) 81.4 MCH (27.0 - 31.0 PG) 27.0 RDW (11.5 - 14.5 %) 15.3 H Plt Count (130 - 400 /CUMM) 246 MPV (7.4 - 10.4 FL) 7.2 L Gran % (42.2 - 75.2 %) 93.2 H Lymphocytes % (20.5 - 51.1 %) 2.2 L Monocytes % (1.7 - 9.3 %) 4.5 Eosinophils % (0 - 5 %) 0 Basophils % (0.0 - 2.0 %) 0.1 Absolute Granulocytes (1.4 - 6.5 /CUMM) 24.3 H Segmented Neutrophils (42.2 - 75.2 %) 80 H Band Neutrophils (0.0 - 5.0 %) 12 H Absolute Lymphocytes (1.2 - 3.4 /CUMM) 0.6 L Lymphocytes (20.5 - 51.1 %) 2 L Monocytes (1.7 - 9.3 %) 6 Absolute Monocytes (0.10 - 0.60 /CUMM) 1.2 H Absolute Eosinophils (0.0 - 0.7 /CUMM) 0 Absolute Basophils (0.0 - 0.2 /CUMM) 0 Platelet Estimate (ADEQUATE) ADEQUATE Normochromic RBCs VERIFIED Anisocytosis 1+ PUBS MCHC (33.0 - 37.0 G/DL) 33.2 Miscellaneous Phlebotomy Draw Site RIGHT RADIAL Vital Signs Date Time Temp Pulse Resp B/P Pulse O2 O2 Flow FiO2 Ox Delivery Rate 11/22 1445 98.6 88 20 116/68 98 Nasal 2.0L Cannula 11/22 1238 98 Nasal 2.0L Cannula 11/22 1145 Nasal 2.0L Cannula Pt admitted with sepsis secondary to UTI and positive blood cultures with gram negative rods and leukocytosis. cont with iv ceftriaxone. wbc better. dysphagia- seen by speech. started on chopped foods and nectar thick liquids. d/w pt the care plan.
--- NOTE | 2016-11-22 19:24 | Cons- Cardiology ---
General Information and HPI Consulting Request Date of Consult: 11/22/16 Requested By: LEE CABAN,RADHA Reason for Consult: CHF History of Present Illness: The patient is an 86-year-old female with history of chronic diastolic heart failure, COPD, hypertension who presents with complaint of shortness of breath. She notes recent cough productive of whitish sputum. She also notes dysuria. She complains of recent lightheadedness and dizziness. She has had nausea. No syncope. She has recently been having difficulty swallowing food. He is noted to be febrile. She is admitted for sepsis with UTI and possible aspiration. She has acute kidney injury secondary to poor PO Allergies/Medications Allergies: Coded Allergies: Iodinated Contrast Media - Oral and (Iodinated Contrast Media - IV Dye) (IVP DYE HIVES 03/12/16) Home Med List: Albuterol Sulfate (Proair Hfa) 8.5 GM HFA.AER.AD 2 PUF INH Q4H PRN SOB/WHEEZE (Reported) Albuterol Sulfate 2.5 MG/3 ML VIAL.NEB 1 Vial INH/SUSAN Q2H PRN SOB (Reported) Budesonide/Formoterol Fumarate (Symbicort 160-4.5 Mcg Inhaler) 10.2 GM HFA.AER.AD 2 PUF INH BID COPD (Reported) Calcium Carbonate (TUMS) (Unknown Strength) TAB.CHEW (Unknown Dose) PO AD GI (Reported) Cholecalciferol (Vitamin D3) 1,000 UNIT TABLET 1 TAB PO DAILY SUPPLEMENT ( Reported) Cyanocobalamin (Vitamin B-12) 1,000 MCG TABLET 1 TAB PO DAILY VITAMIN SUPPORT (Reported) Ergocalciferol (Vitamin D2) (Drisdol) 50,000 UNIT CAPSULE 1 CAP PO Q30D SUPPLEMENT (Reported) Escitalopram Oxalate (Lexapro) 10 MG TABLET 1 TAB PO DAILY MENTAL HEALTH ( Reported) Ferrous Sulfate 325 MG TABLET 1 TAB PO QHS SUPPLEMENT (Reported) Guaifenesin (Adult Tussin Chest Congestion) (Unknown Strength) LIQUID (Unknown Dose) PO AD COUGH (Reported) Levothyroxine Sodium 100 MCG TABLET 1 TAB PO DAILY THYROID (Reported) Metoclopramide HCl (Reglan) 5 MG TABLET 1 TAB PO Q6H GERD/VOMITING TAKE 30 MINUTES PRIOR TO EATING AND PRIOR TO BEDTIME Mirtazapine (Remeron) 15 MG TABLET 1 TAB PO QHS SLEEP (Reported) Omeprazole 40 MG CAPSULE.DR 1 CAP PO DAILY GERD Tiotropium [place] (Spiriva Respimat) 4 GM MIST.INHAL 1 PUFF INH DAILY COPD ( Reported) Trazodone HCl 50 MG TABLET 0.5 TAB PO Q4H PRN ANXIETY (Reported) Current Medications: Current Medications Sig/Keesha Start time Last Medication Dose Route Stop Time Status Admin Albuterol Sulfate 3 ML Q4P PRN 11/22 1145 DC INH Albuterol Sulfate 3 ML Q4 HRS NEEDED PRN 11/21 2315 AC 11/22 INH 1143 Azithromycin 250 MG DAILY 11/24 1000 DC PO Azithromycin 250 MG DAILY 11/23 1000 AC PO Azithromycin 500 MG ONCE ONE 11/22 1300 DC 11/22 PO 11/22 1301 1441 Budesonide/ 2 PUF BID 11/21 2301 AC 11/22 Formoterol Fumarate INH 2105 Ceftriaxone Sodium 1,000 MG 2200 11/21 2230 AC 11/22 IV 2105 Cholecalciferol 1,000 IU DAILY 11/22 1000 AC 11/22 PO 0903 Cyanocobalamin 1,000 MCG DAILY 11/22 1000 AC 11/22 PO 0903 Escitalopram Oxalate 10 MG DAILY 11/22 1000 AC 11/22 PO 0903 Heparin Sodium 5,000 UNIT Q8 11/22 0600 AC 11/22 (Porcine) SC 2105 Omeprazole 40 MG DAILY AC 11/22 0700 AC 11/22 PO 0630 Sodium Chloride 1,000 ML Q20H 11/21 2230 DC 11/21 IV 11/22 1829 2316 Tiotropium [place] 1 PUF DAILY 11/22 1000 AC 11/22 INH 0904 Trazodone HCl 25 MG Q4H PRN 11/21 2315 AC 11/22 PO 2127 Review of Systems Review of Systems: No rash. Her tremor. No melena. No palpitations. All other systems were reviewed, and were noted to be negative. Past History Travel History Traveled to [place] past 21 day No Medical History Blood Transfusion Hx: Yes Neurological: NONE EENT: macular degeneration Cardiovascular: hypertension, mitral regurgitation (SEVERE) Respiratory: COPD, pulmonary hypertension Gastrointestinal: NONE Hepatic: NONE Renal: NONE Musculoskeletal: disk herniation, spinal stenosis Psychiatric: anxiety, depression Endocrine: hypothyroidism Blood Disorders: PERNICIOUS ANEMIA Cancer(s): NONE BANANA GRADER/Reproductive: NONE Surgical History Surgical History: hysterectomy, spinal surgery Family History Relations & Conditions If Any: FATHER (Colon Cancer, ). MOTHER (RA, ). Psychosocial History Where Do You Live? Extended Care Facility Services at Home: Nursing Primary Language: Romanian Smoking Status: Former Smoker (heavy smoker,quit 8 months ago) ETOH Use: denies use Living Will? yes Power of Cadd Operator/HCP? no Functional Ability ADLs Independent: dressing, eating, toileting, bathing. Ambulation: independent (has walker does not use it) IADLs Independent: shopping, housework, finances, food prep, telephone. Needs Assist: transportation (in assisted living facilily), medication admin. Exam & Diagnostic Data Vital Signs and I&O Vital Signs Date Time Temp Pulse Resp B/P Pulse O2 O2 Flow FiO2 Ox Delivery Rate 11/22 195 98 Nasal 2.0L Cannula 11/22 1600 97 Nasal 2.0L Cannula 11/22 1445 98.6 88 20 116/68 98 Nasal 2.0L Cannula 11/22 1238 98 Nasal 2.0L Cannula 11/22 1145 Nasal 2.0L Cannula 11/22 0800 Nasal 2.0L Cannula 11/22 0710 98.9 88 20 114/62 95 Nasal 2.0L Cannula Intake & Output 11/22 1600 11/22 0800 11/22 0000 11/21 1600 11/21 0800 11/21 0000 Intake Total 2602 170 2053 Output Total 400 450 Balance 840 -50 1000 Intake, IV 140 926 5033 Intake, Oral 840 0 0 Number 0 Bowel Movements Output, Urine 400 450 Patient 102 lb Weight Physical Exam: Gen: The patient is in no acute distress HEENT: Normal nose, ears, and oropharynx. Pupils equal bilaterally. Conjunctiva normal. Neck: Supple with no JVD, no masses, and no thyromegaly Lungs: Clear to auscultation with normal respiratory effort Heart: RRR, S1, S2, 2/6 systolic murmur, 1+ peripheral edema, 2+ pulses in the lower extremities bilaterally Abdomen: Soft, nontender, no masses. No hepatomegaly. No splenomegaly Extremities: No clubbing or cyanosis. Normal muscle strength in the upper and lower extremities Skin: Normal skin turgor with no skin ulcers or lesions noted. Neuro: Cranial nerves intact. Sensation intact Psych: Alert and oriented 3 with appropriate affect Labs/Contreras Results: Laboratory Tests 11/22 11/21 0622 2100 Chemistry Sodium (137 - 145 mmol/L) 132 L Potassium (3.5 - 5.1 mmol/L) 3.6 Chloride (98 - 107 mmol/L) 98 Carbon Dioxide (22 - 30 mmol/L) 26 Anion Gap (5 - 16) 8 BUN (7 - 17 mg/dL) 29 H Creatinine (0.5 - 1.0 mg/dL) 1.2 H Estimated GFR (>60 ml/min) 43 L BUN/Creatinine Ratio (7 - 25 %) 24.2 Lactic Acid Cancelled TSH (0.270 - 4.200 uIU/mL) 0.445 Free T4 (0.85 - 1.93 ng/dL) 1.59 Hematology CBC w Diff MAN DIFF ORDERED WBC (4.8 - 10.8 /CUMM) 22.0 H RBC (4.20 - 5.40 /CUMM) 3.98 L Hgb (12.0 - 16.0 G/DL) 10.8 L Hct (37 - 47 %) 32.3 L MCV (81.0 - 99.0 FL) 81.1 MCH (27.0 - 31.0 PG) 27.0 RDW (11.5 - 14.5 %) 15.2 H Plt Count (130 - 400 /CUMM) 216 MPV (7.4 - 10.4 FL) 7.5 Gran % (42.2 - 75.2 %) 93.2 H Lymphocytes % (20.5 - 51.1 %) 1.6 L Monocytes % (1.7 - 9.3 %) 5.2 Eosinophils % (0 - 5 %) 0 Basophils % (0.0 - 2.0 %) 0 L Absolute Granulocytes (1.4 - 6.5 /CUMM) 20.5 H Segmented Neutrophils (42.2 - 75.2 %) 86 H Band Neutrophils (0.0 - 5.0 %) 7 H Absolute Lymphocytes (1.2 - 3.4 /CUMM) 0.4 L Lymphocytes (20.5 - 51.1 %) 3 L Monocytes (1.7 - 9.3 %) 4 Absolute Monocytes (0.10 - 0.60 /CUMM) 1.1 H Absolute Eosinophils (0.0 - 0.7 /CUMM) 0 Absolute Basophils (0.0 - 0.2 /CUMM) 0 Poikilocytosis 1+ Anisocytosis 1+ PUBS MCHC (33.0 - 37.0 G/DL) 33.3 11/21 Urines Urine Color (YEL,AMB,STR) YEL Urine Clarity (CLEAR) HAZY H Urine pH (5.0 - 8.0) 6.0 Ur Specific [place] (1.001 - 1.035) 1.010 Urine Protein (NEG,<30 MG/DL) 100 H Urine Ketones (NEG) NEG Urine Nitrite (NEG) NEG Urine Bilirubin (NEG) NEG Urine Urobilinogen (0.1 - 1.0 EU/dl) 0.2 Ur Leukocyte Esterase (NEG) LARGE H Ur Microscopic SEDIMENT EXAMINED Urine RBC (0 - 5 /HPF) 15-25 H Urine WBC (0 - 2 /HPF) > 75 H Ur Epithelial Cells (NONE,FEW) MANY H Urine Hemoglobin (NEG) SMALL H Urine Osmolality (300 - 1000 MOSM/KG) 267 L Ur Random Creatinine (mg/dL) 47.7 Ur Random Sodium (30 - 90 mmol/L) 14 L Ur Random Potassium (mmol/L) 26.4 Fraction Sodium Excret (<1% %) 0.3 Urine Glucose (N MG/DL) NEG 11/21 11/21 1818 1815 Blood Gas pH (7.35 - 7.45 PH) 7.48 H pCO2 (35 - 45 TORR) 34 L pO2 (80 - 100 TORR) 68 L HCO3 (21 - 28 MEQ/L) 25 ABG O2 Sat (Measured) (>96.0 %) 94.0 L P-50 (Temp Corrected) Y Carboxyhemoglobin (1.5 - 5.0 %) 0.4 L O2 Concentration % RM/AIR Temperature (97.0 - 100.0 FARH) 98.3 O2 Delivery Method RA Chemistry Sodium (137 - 145 mmol/L) 128 L Potassium (3.5 - 5.1 mmol/L) 3.9 Chloride (98 - 107 mmol/L) 91 L Carbon Dioxide (22 - 30 mmol/L) 28 Anion Gap (5 - 16) 9 BUN (7 - 17 mg/dL) 33 H Creatinine (0.5 - 1.0 mg/dL) 1.3 H Estimated GFR (>60 ml/min) 39 L BUN/Creatinine Ratio (7 - 25 %) 25.4 H Glucose (65 - 99 mg/dL) 98 Serum Osmolality (285 - 295 MOSM/KG) 282 L Lactic Acid (0.7 - 2.1 mmol/L) 1.3 Calcium (8.4 - 10.2 mg/dL) 8.8 Magnesium (1.6 - 2.3 mg/dL) 1.6 Total Bilirubin (0.2 - 1.3 mg/dL) 0.5 AST (14 - 36 U/L) 17 ALT (9 - 52 U/L) 28 Alkaline Phosphatase (<127 U/L) 88 Troponin I (< 0.11 ng/ml) 0.03 Total Protein (6.3 - 8.2 g/dL) 6.0 L Albumin (3.5 - 5.0 g/dL) 2.9 L Globulin (1.9 - 4.2 gm/dL) 3.1 Albumin/Globulin Ratio (1.1 - 2.2 %) 0.9 L Hematology CBC w Diff MAN DIFF ORDERED WBC (4.8 - 10.8 /CUMM) 26.1 H RBC (4.20 - 5.40 /CUMM) 4.36 Hgb (12.0 - 16.0 G/DL) 11.8 L Hct (37 - 47 %) 35.5 L MCV (81.0 - 99.0 FL) 81.4 MCH (27.0 - 31.0 PG) 27.0 RDW (11.5 - 14.5 %) 15.3 H Plt Count (130 - 400 /CUMM) 246 MPV (7.4 - 10.4 FL) 7.2 L Gran % (42.2 - 75.2 %) 93.2 H Lymphocytes % (20.5 - 51.1 %) 2.2 L Monocytes % (1.7 - 9.3 %) 4.5 Eosinophils % (0 - 5 %) 0 Basophils % (0.0 - 2.0 %) 0.1 Absolute Granulocytes (1.4 - 6.5 /CUMM) 24.3 H Segmented Neutrophils (42.2 - 75.2 %) 80 H Band Neutrophils (0.0 - 5.0 %) 12 H Absolute Lymphocytes (1.2 - 3.4 /CUMM) 0.6 L Lymphocytes (20.5 - 51.1 %) 2 L Monocytes (1.7 - 9.3 %) 6 Absolute Monocytes (0.10 - 0.60 /CUMM) 1.2 H Absolute Eosinophils (0.0 - 0.7 /CUMM) 0 Absolute Basophils (0.0 - 0.2 /CUMM) 0 Platelet Estimate (ADEQUATE) ADEQUATE Normochromic RBCs VERIFIED Anisocytosis 1+ PUBS MCHC (33.0 - 37.0 G/DL) 33.2 Miscellaneous Phlebotomy Draw Site RIGHT RADIAL Diagnostic Data EKG Results EKG tracing is independently reviewed, and reveals normal sinus rhythm at 93 with intraventricular conduction delay and left hypertrophy CXR Results Chest x-ray: Pulmonary hypoinflation. Left basilar opacification is nonspecific and could reflect atelectasis given low lung volumes although superimposed infection cannot be excluded in the appropriate clinical setting. Other Results Echocardiogram 08/08/16: 1. Mild to moderate aortic sclerosis is present with mild aortic insufficiency. 2. Moderate thickening and calcification of the mitral leaflets is present with moderate annular calcification and moderate to severe eccentric mitral insufficiency with moderate to severe left atrial enlargement. 3. The mitral valve effective regurgitant orifice is 0.6 cm 4..No significant pericardial fluid was identified. 5. The left ventricular chamber size is normal with mild concentric upper and a normal ejection fraction. Very mild localized inferoposterior hypokinesia is present. 6. Right heart structures are grossly normal. Mild to moderate tricuspid insufficiency is present with pulmonary hypertension and a right ventricular systolic pressure of 50 mmHg. Assessment/Plan Assessment/Plan Assessment: 1. Chronic diastolic heart failure 2. Mild to moderate mitral regurgitation with mild aortic regurgitation 3. Sepsis secondary to urinary tract infection 4. Blood culture positive for gram-negative rachid 5. Acute renal insufficiency likely secondary to volume depletion 6. No evidence of acute heart failure Plan: * Antibiotic therapy as per the medical service * Agree with gentle hydration * Hold diuretics Consult Acknowledgment - Thank you for your consult request.
--- NOTE | 2016-11-22 22:34 | RADIOLOGY REPORT ---
EXAMINATION: XR PORTABLE CHEST CLINICAL INFORMATION: Desaturation and shortness of breath. Evaluate for pneumonia. COMPARISON: Portable chest x-ray 11/21/2016. TECHNIQUE: Portable AP view of the chest was obtained. FINDINGS: Single AP view of the chest demonstrates pulmonary hypoinflation. There are streaky airspace opacities within the bilateral lungs. Also noted is left basilar opacification, which is entirely nonspecific but could reflect atelectasis given low lung volumes. Superimposed airspace consolidation secondary to infection cannot be excluded in the appropriate clinical setting. Cardiomediastinal contours are stable. No pneumothoraces. No right-sided pleural effusions. IMPRESSION: Pulmonary hypoinflation. Left basilar opacification is nonspecific and could reflect atelectasis given low lung volumes although superimposed infection cannot be excluded in the appropriate clinical setting.
[2016-11-23 00:10] VITALS: BP 110/60
--- NOTE | 2016-11-23 07:52 | PN- Housestaff ---
Subjective Follow-up For: Sepsis of urological ORIGIN Subjective: She is seen and examined at bedside. Patient ends that she is still feeling weak and does not like high nectar consistency liquid diet. She is concerned about her physical strength and inquired whether she'll be ready for discharge. No acute overnight event reported by nursing staff. Review of Systems Constitutional: Reports: see HPI. Objective Last 24 Hrs of Vital Signs/I&O Vital Signs Date Time Temp Pulse Resp B/P Pulse O2 O2 Flow FiO2 Ox Delivery Rate 11/23 0934 98.1 80 20 112/60 97 Nasal 2.0L Cannula 11/23 0836 98 Nasal 2.0L Cannula 11/23 0800 98 Nasal 2.0L Cannula 11/23 0010 98.0 80 20 110/60 97 Nasal 2.0L Cannula 11/23 0000 Nasal 2.0L Cannula 11/22 1958 98 Nasal 2.0L Cannula Intake & Output 11/23 1600 11/23 0800 11/23 0000 Intake Total 120 120 Output Total 250 200 Balance -130 -80 Intake, Oral 120 120 Output, Urine 250 200 Physical Exam General Appearance: Alert, Oriented X3, Cooperative Other Physical Findings: Skin Hyhpopigmented lesions on the skin of the upper trunk and neck as well as upper extremities HEENT Atraumatic, PERRLA, EOMI, dry mucous membranes Neck Supple Cardiovascular Regular Rate, Normal S1, Normal S2, 2/6 systolic murmur Lungs decreased breath sounds, no wheezinf or rhonchi, no crackles Abdomen Normal Bowel Sounds, Soft, No Tenderness, No Hepatospenomegaly, no CVA tenderness Neurological Normal Speech, Strength at 5/5 X4 Ext, Normal Tone, Sensation Intact, Cranial Nerves 3-12 NL Extremities No Clubbing, No Cyanosis, No Edema, Normal Pulses, No Tenderness/ Swelling Vascular Normal Pulses, Pulses Symmetrical Current Medications: Current Medications Sig/Keesha Start time Last Medication Dose Route Stop Time Status Admin Albuterol Sulfate 3 ML Q4 HRS NEEDED PRN 11/21 2315 AC 11/23 INH 0832 Azithromycin 250 MG DAILY 11/24 1000 DC PO Azithromycin 250 MG DAILY 11/23 1000 DC 11/23 PO 0908 Budesonide/ 2 PUF BID 11/21 2301 AC 11/23 Formoterol Fumarate INH 0908 Ceftriaxone Sodium 1,000 MG 2200 11/21 223 AC 11/22 IV 2105 Cholecalciferol 1,000 IU DAILY 11/22 1000 AC 11/23 PO 0908 Cyanocobalamin 1,000 MCG DAILY 11/22 1000 AC 11/23 PO 0908 Escitalopram Oxalate 10 MG DAILY 11/22 1000 AC 11/23 PO 0908 Heparin Sodium 5,000 UNIT Q8 11/22 0600 AC 11/23 (Porcine) SC 0552 Omeprazole 40 MG DAILY AC 11/22 0700 AC 11/23 PO 0552 Potassium Chloride 40 MEQ ONCE ONE 11/23 1045 DC 11/23 PO 11/23 1046 1124 Sodium Chloride 1,000 ML Q20H 11/21 2230 DC 11/21 IV 11/22 1829 2316 Tiotropium [place] 1 PUF DAILY 11/22 1000 AC 11/23 INH 0908 Trazodone HCl 25 MG Q4H PRN 11/21 2315 AC 11/23 PO 0909 Zolpidem Tartrate 10 MG .STK-MED ONE 11/22 2122 DC PO 11/22 2123 Last 24 Hrs of Lab/Contreras Results Last 24 Hrs of Labs/Mics: Laboratory Tests 11/23/16 0725: Anion Gap 6, Estimated GFR 47 L, BUN/Creatinine Ratio 21.8, CBC w Diff MAN DIFF ORDERED, RBC 3.92 L, MCV 81.2, MCH 27.0, RDW 15.2 H, MPV 7.3 L, Gran % 87.3 H, Lymphocytes % 4.2 L, Monocytes % 8.1, Eosinophils % 0.4, Basophils % 0 L, Absolute Granulocytes 11.2 H, Segmented Neutrophils 79 H, Band Neutrophils 8 H, Absolute Lymphocytes 0.5 L, Lymphocytes 5 L, Monocytes 8, Absolute Monocytes 1.0 H, Absolute Eosinophils 0.1, Absolute Basophils 0, Anisocytosis 1 +, PUBS MCHC 33.2 Assessment/Plan Assessment: Patient is a 86-year-old lady with past medical history of recently diagnosed CHF, COPD (not on home O2), HTN, hypothyroidism (on synthroid), pernicious anemia, RA, macular degeneration and depression/anxiety who was BIBA to [facility] after an episode of dizziness and near syncope as well as feeling generally weak. Patient denies palpitation, CP or SOB. Reports frequency, nocturia and loose stool. Assesment and Plan Sepsis Fever and leukocytosis & active UA and negative CXR suggesting sepsis in the setting of UTI. * Continue IV ceftriaxone to cover gram-negative bacteria * repeat another chest x-ray before any acute infection, Zithromax stopped. * Urine culture was admitted for gram-negative rods * Cultures positive for gram-negative rods most likely source is urogenital UTI UA suggestive of UTI. Patient presented with leukocytosis which is now down trending. Plan Continue IV ceftriaxone Bacteremia Patient is growing gram-negative rods. Patient UA is suggestive of UTI and she does not endorse any abdominal pain, though she has diarrhea episodes she reports frequent use of stool softener and possible laxatives. Therefore most likely source of the bacteremia is genitourinary. Plan Continue ceftriaxone IV Will monitor for any fever spikes MEGAN Elevated creatinine and BUN/creatinine ratio suggesting a prerenal cause including dehydration and CHF. Patient's clinical findings and CXR are not in accord with CHF. Currently resolving. * encourage drinking * follow up BEP in AM * Hyponatremia Sodium levels resolving . Patient does have chronic hyponatremia and therefore no need for rapid correction .Patient appears hypovolemic with dry mucous membranes, not volume overloaded. most likely etiology is hypovolemic hyponatremia secondary from volume loss with diarrhea. Unremarkable TSH and T4 levels rules out hypothyroidism as the possible cause. * Will encourage fluid intake and hold off on any IV hydration * Will trend BEP History of CHF and pulmonary hypertension Patient follows with Dr. Flores. Last ECHO was performed in July 2016 and reported EF of 60-65%. Currently appears stable with no evidence of increased SOB, crackles in lungs, LE edema or CXR findings. * Await echo tomorrow morning History of COPD Currently stable. She has quit smoking since 8 months ago that she was hospitalized for COPD and CHF exacerbation. Not on home oxygen. * Continue Spiriva, Symbicort, Proventil History of hypothyroidism * Continue levothyroxine * Check TSH and free T4 History of anxiety and depression * Continue mirtazapine, trazodone and Lexapro Problem List: 1. Sepsis Pain Ratin Pain Location: NONE Pain Goal: Remain pain free Pain Plan: Acetaminophen for mild pain Tomorrow's Labs & Rationales: BEP-trending hypokalemia CBC trending leukocytosis
[2016-11-23 08:17] LABS: ABSOLUTE BASOPHIL COUNT 0 /CUMM (0.0-0.2); ABSOLUTE EOSINOPHIL COUNT 0.1 /CUMM (0.0-0.7); ABSOLUTE GRANULOCYTE CT 11.2 /CUMM (1.4-6.5); ABSOLUTE LYMPH COUNT 0.5 /CUMM (1.2-3.4); BASOPHIL % 0 % (0.0-2.0); EOSINOPHIL % 0.4 % (0-5); GRANULOCYTE % 87.3 % (42.2-75.2); HEMATOCRIT 31.8 % (37-47); MEAN CORPUSCULAR HGB CONC 33.2 G/DL (33.0-37.0); MEAN CORPUSCULAR VOLUME 81.2 FL (81.0-99.0); MEAN PLATELET VOLUME 7.3 FL (7.4-10.4); PLATELET COUNT 212 /CUMM (130-400); RBC DISTRIBUTION WIDTH 15.2 % (11.5-14.5); RED BLOOD CELL CT 3.92 /CUMM (4.20-5.40); WHITE BLOOD CELL COUNT 12.8 /CUMM (4.8-10.8)
[2016-11-23 09:34] VITALS: BP 112/60
--- NOTE | 2016-11-23 15:09 | PN- Cardiology ---
Subjective Subjective: The patient reports that her shortness of breath is improving. No chest pain. No palpitations. No diaphoresis. Objective Vital Signs and I&Os Vital Signs Date Time Temp Pulse Resp B/P Pulse O2 O2 Flow FiO2 Ox Delivery Rate 11/23 0934 98.1 80 20 112/60 97 Nasal 2.0L Cannula 11/23 0836 98 Nasal 2.0L Cannula 11/23 0800 98 Nasal 2.0L Cannula 11/23 0010 98.0 80 20 110/60 97 Nasal 2.0L Cannula 11/23 0000 Nasal 2.0L Cannula 11/22 1958 98 Nasal 2.0L Cannula 11/22 1600 97 Nasal 2.0L Cannula Intake & Output 11/23 1600 11/23 0800 11/23 0000 11/22 1600 11/22 0800 11/22 0000 Intake Total 420 909 1237 400 1000 Output Total 250 200 400 450 Balance -130 -80 840 -50 1000 Intake, IV 283 719 4624 Intake, Oral 120 120 840 0 0 Number 0 Bowel Movements Output, Urine 250 200 400 450 Patient 102 lb Weight Physical Exam: Gen: The patient is in no acute distress HEENT: Normal nose, ears, and oropharynx. Pupils equal bilaterally. Conjunctiva normal. Neck: Supple with no JVD, no masses, and no thyromegaly Lungs: Clear to auscultation with normal respiratory effort Heart: RRR, S1, S2, 2/6 systolic murmur, 1+ peripheral edema, 2+ pulses in the lower extremities bilaterally Abdomen: Soft, nontender, no masses. No hepatomegaly. No splenomegaly Extremities: No clubbing or cyanosis. Normal muscle strength in the upper and lower extremities Skin: Normal skin turgor with no skin ulcers or lesions noted. Neuro: Cranial nerves intact. Sensation intact Current Medications: Current Medications Sig/Keesha Start time Last Medication Dose Route Stop Time Status Admin Albuterol Sulfate 3 ML Q4 HRS NEEDED PRN 11/21 2315 AC 11/23 INH 0832 Azithromycin 250 MG DAILY 11/24 1000 DC PO Azithromycin 250 MG DAILY 11/23 1000 DC 11/23 PO 0908 Budesonide/ 2 PUF BID 11/21 2301 AC 11/23 Formoterol Fumarate INH 0908 Ceftriaxone Sodium 1,000 MG 2200 11/21 2230 AC 11/22 IV 2105 Cholecalciferol 1,000 IU DAILY 11/22 1000 AC 11/23 PO 0908 Cyanocobalamin 1,000 MCG DAILY 11/22 1000 AC 11/23 PO 0908 Escitalopram Oxalate 10 MG DAILY 11/22 1000 AC 11/23 PO 0908 Heparin Sodium 5,000 UNIT Q8 11/22 0600 AC 11/23 (Porcine) SC 0552 Omeprazole 40 MG DAILY AC 11/22 0700 AC 11/23 PO 0552 Potassium Chloride 40 MEQ ONCE ONE 11/23 1045 DC 11/23 PO 11/23 1046 1124 Sodium Chloride 1,000 ML Q20H 11/21 2230 DC 11/21 IV 11/22 1829 2316 Tiotropium [place] 1 PUF DAILY 11/22 1000 AC 11/23 INH 0908 Trazodone HCl 25 MG Q4H PRN 11/21 2315 AC 11/23 PO 0909 Zolpidem Tartrate 10 MG .STK-MED ONE 11/22 2122 DC PO 11/22 2123 Results Last 48 Hrs of Labs/Mics: Laboratory Tests 11/23/16 0725: Anion Gap 6, Estimated GFR 47 L, BUN/Creatinine Ratio 21.8, CBC w Diff MAN DIFF ORDERED, RBC 3.92 L, MCV 81.2, MCH 27.0, RDW 15.2 H, MPV 7.3 L, Gran % 87.3 H, Lymphocytes % 4.2 L, Monocytes % 8.1, Eosinophils % 0.4, Basophils % 0 L, Absolute Granulocytes 11.2 H, Segmented Neutrophils 79 H, Band Neutrophils 8 H, Absolute Lymphocytes 0.5 L, Lymphocytes 5 L, Monocytes 8, Absolute Monocytes 1.0 H, Absolute Eosinophils 0.1, Absolute Basophils 0, Anisocytosis 1 +, PUBS MCHC 33.2 11/22/16 0622: Anion Gap 8, Estimated GFR 43 L, BUN/Creatinine Ratio 24.2, TSH 0.445, Free T4 1.59, CBC w Diff MAN DIFF ORDERED, RBC 3.98 L, MCV 81.1, MCH 27.0, RDW 15.2 H, MPV 7.5, Gran % 93.2 H, Lymphocytes % 1.6 L, Monocytes % 5.2, Eosinophils % 0, Basophils % 0 L, Absolute Granulocytes 20.5 H, Segmented Neutrophils 86 H, Band Neutrophils 7 H, Absolute Lymphocytes 0.4 L, Lymphocytes 3 L, Monocytes 4, Absolute Monocytes 1.1 H, Absolute Eosinophils 0, Absolute Basophils 0, Poikilocytosis 1+, Anisocytosis 1+, PUBS MCHC 33.3 11/21/16 2100: Lactic Acid Cancelled 11/21/162036: Urine Color YEL, Urine Clarity HAZY H, Urine pH 6.0, Ur Specific [place] 1.010, Urine Protein 100 H, Urine Ketones NEG, Urine Nitrite NEG, Urine Bilirubin NEG, Urine Urobilinogen 0.2, Ur Leukocyte Esterase LARGE H, Ur Microscopic SEDIMENT EXAMINED, Urine RBC 15-25 H, Urine WBC > 75 H, Ur Epithelial Cells MANY H, Urine Hemoglobin SMALL H, Urine Glucose NEG 11/21/162036: Urine Osmolality 267 L, Ur Random Creatinine 47.7, Ur Random Sodium 14 L, Ur Random Potassium 26.4, Fraction Sodium Excret 0.3 11/21/161817: Anion Gap 9, Estimated GFR 39 L, BUN/Creatinine Ratio 25.4 H, Glucose 98, Serum Osmolality 282 L, Lactic Acid 1.3, Calcium 8.8, Magnesium 1.6, Total Bilirubin 0.5, AST 17, ALT 28, Alkaline Phosphatase 88, Troponin I 0.03, Total Protein 6.0 L, Albumin 2.9 L, Globulin 3.1, Albumin/Globulin Ratio 0.9 L, CBC w Diff MAN DIFF ORDERED, RBC 4.36, MCV 81.4, MCH 27.0, RDW 15.3 H, MPV 7.2 L, Gran % 93.2 H, Lymphocytes % 2.2 L, Monocytes % 4.5, Eosinophils % 0, Basophils % 0.1, Absolute Granulocytes 24.3 H, Segmented Neutrophils 80 H, Band Neutrophils 12 H, Absolute Lymphocytes 0.6 L, Lymphocytes 2 L, Monocytes 6, Absolute Monocytes 1.2 H, Absolute Eosinophils 0, Absolute Basophils 0, Platelet Estimate ADEQUATE, Normochromic RBCs VERIFIED, Anisocytosis 1+, PUBS MCHC 33.2 11/21/161814: pH 7.48 H, pCO2 34 L, pO2 68 L, HCO3 25, ABG O2 Sat (Measured) 94.0 L, P-50 (Temp Corrected) Y, Carboxyhemoglobin 0.4 L, O2 Concentration % RM/AIR, Temperature 98.3, O2 Delivery Method RA, Phlebotomy Draw Site RIGHT RADIAL Recent Imaging Studies: Pulmonary hypoinflation. Left basilar opacification is nonspecific and could reflect atelectasis given low lung volumes although superimposed infection cannot be excluded in the appropriate clinical setting. Assessment/Plan Assessment/Plan Assessment: 1. Chronic diastolic heart failure 2. Mild to moderate mitral regurgitation with mild aortic regurgitation 3. Sepsis secondary to urinary tract infection 4. Blood culture positive for gram-negative rachid 5. Acute renal insufficiency likely secondary to volume depletion 6. No evidence of acute heart failure 7. Hypokalemia Plan: * Antibiotic therapy as per the medical service * Hold diuretics * Supplement potassium Continue telemetry? Not applicable
--- NOTE | 2016-11-23 15:57 | PN- Att Addend ---
Attending MD Review Statement Attending Statement Attending MD Statement: examined this patient, discuss w/resident/PA/FRANCHISE SALES MANAGER, agreed w/resident/PA/FRANCHISE SALES MANAGER, reviewed EMR data (avail), discussed w/nursing Attending Assessment/Plan: Laboratory Tests 11/23/16 0725: Anion Gap 6, Estimated GFR 47 L, BUN/Creatinine Ratio 21.8, CBC w Diff MAN DIFF ORDERED, RBC 3.92 L, MCV 81.2, MCH 27.0, RDW 15.2 H, MPV 7.3 L, Gran % 87.3 H, Lymphocytes % 4.2 L, Monocytes % 8.1, Eosinophils % 0.4, Basophils % 0 L, Absolute Granulocytes 11.2 H, Segmented Neutrophils 79 H, Band Neutrophils 8 H, Absolute Lymphocytes 0.5 L, Lymphocytes 5 L, Monocytes 8, Absolute Monocytes 1.0 H, Absolute Eosinophils 0.1, Absolute Basophils 0, Anisocytosis 1 +, PUBS MCHC 33.2 Vital Signs Date Time Temp Pulse Resp B/P Pulse O2 O2 Flow FiO2 Ox Delivery Rate 11/23 0934 98.1 80 20 112/60 97 Nasal 2.0L Cannula 11/23 0836 98 Nasal 2.0L Cannula 11/23 0800 98 Nasal 2.0L Cannula 11/23 0010 98.0 80 20 110/60 97 Nasal 2.0L Cannula 11/23 0000 Nasal 2.0L Cannula 11/22 1958 98 Nasal 2.0L Cannula 11/22 1600 97 Nasal 2.0L Cannula A/p- Sepsis sepsis secondary to UTI and positive blood cultures with gram negative rods and leukocytosis. cont with iv ceftriaxone. wbc better. Afebrile. improving. f/u on urine and blood cultures. dysphagia- seen by speech. started on chopped foods and nectar thick liquids. Hypokalemia- replaced, recheck in am . Repeat cxr shows no infiltrates. dced zithromax. d/w pt the care plan.
[2016-11-23 17:06] VITALS: BP 120/70
[2016-11-24 00:16] VITALS: BP 120/64
[2016-11-24 07:53] LABS: ABSOLUTE BASOPHIL COUNT 0 /CUMM (0.0-0.2); ABSOLUTE EOSINOPHIL COUNT 0.2 /CUMM (0.0-0.7); ABSOLUTE GRANULOCYTE CT 9.9 /CUMM (1.4-6.5); ABSOLUTE LYMPH COUNT 0.6 /CUMM (1.2-3.4); ABSOLUTE MONOCYTE COUNT 0.9 /CUMM (0.10-0.60); BASOPHIL % 0 % (0.0-2.0); EOSINOPHIL % 1.4 % (0-5); GRANULOCYTE % 85.6 % (42.2-75.2); MEAN CORPUSCULAR HGB 26.7 PG (27.0-31.0); MEAN CORPUSCULAR HGB CONC 33.2 G/DL (33.0-37.0); MEAN CORPUSCULAR VOLUME 80.4 FL (81.0-99.0); PLATELET COUNT 234 /CUMM (130-400); RBC DISTRIBUTION WIDTH 15.2 % (11.5-14.5); RED BLOOD CELL CT 3.85 /CUMM (4.20-5.40); WHITE BLOOD CELL COUNT 11.6 /CUMM (4.8-10.8)
[2016-11-24 08:04] VITALS: BP 110/60
--- NOTE | 2016-11-24 09:38 | PN- Housestaff ---
Subjective Follow-up For: UTI Subjective: Pt is seen and examined at bedside. Pt complaints about her mashed and nectar consitency diet. She denies any fever/chills, nasuea/vomiting, dsyuria, abdomminal pain,sob,cp,palpitations. Pt appears a little bit sad when she talks about how her is no longer with her () and his son is in [place]. Review of Systems Constitutional: Reports: no symptoms. Objective Last 24 Hrs of Vital Signs/I&O Vital Signs Date Time Temp Pulse Resp B/P Pulse O2 O2 Flow FiO2 Ox Delivery Rate 11/25 0000 98.1 83 19 124/72 91 Room Air 11/24 2002 93 Room Air 11/24 1606 Nasal 1.0L Cannula 11/24 1600 Room Air 11/24 1553 Nasal 1.0L Cannula 11/24 1538 94.5 94 20 120/74 94 11/24 0805 95 Nasal 1.0L Cannula 11/24 0804 98.2 79 20 110/60 97 Nasal 1.0L Cannula 11/24 0800 96 Nasal 1.0L Cannula 11/24 0016 98.0 84 20 120/64 96 Intake & Output 11/25 0800 11/25 0000 11/24 1600 Intake Total 480 Output Total 302 Balance 178 Intake, Oral 480 Number 3 Bowel Movements Output, Stool 2 Output, Urine 300 Patient 46.266 kg Weight Physical Exam General Appearance: Alert, Oriented X3, Cooperative Other Physical Findings: Skin Hypopigmented lesions on the skin of the upper trunk and neck as well as upper extremities HEENT Atraumatic, PERRLA, EOMI, dry mucous membranes Neck Supple Cardiovascular Regular Rate, Normal S1, Normal S2, 2/6 systolic murmur Lungs decreased breath sounds, no wheezinf or rhonchi, no crackles Abdomen Normal Bowel Sounds, Soft, No Tenderness, No Hepatospenomegaly, no CVA tenderness Neurological Normal Speech, Strength at 5/5 X4 Ext, Normal Tone, Sensation Intact, Cranial Nerves 3-12 NL Extremities No Clubbing, No Cyanosis, No Edema, Normal Pulses, No Tenderness/ Swelling Vascular Normal Pulses, Pulses Symmetrical Current Medications: Current Medications Sig/Keesha Start time Last Medication Dose Route Stop Time Status Admin Albuterol Sulfate 3 ML Q4 HRS NEEDED PRN 11/21 2315 AC 11/23 INH 0832 Azithromycin 250 MG DAILY 11/24 1000 DC PO Azithromycin 250 MG DAILY 11/23 1000 DC 11/23 PO 0908 Budesonide/ 2 PUF BID 11/21 2301 AC 11/24 Formoterol Fumarate INH 205 Ceftriaxone Sodium 1,000 MG 2200 11/21 2230 AC 11/24 IV 2055 Cholecalciferol 1,000 IU DAILY 11/22 1000 AC 11/24 PO 0820 Cyanocobalamin 1,000 MCG DAILY 11/22 1000 AC 11/24 PO 0820 Escitalopram Oxalate 10 MG DAILY 11/22 1000 AC 11/24 PO 0820 Heparin Sodium 5,000 UNIT Q8 11/22 0600 AC 11/24 (Porcine) SC 205 Omeprazole 40 MG DAILY AC 11/22 0700 AC 11/24 PO 0546 Patient Medication 1 ED .STK-MED ONE 11/24 1411 DC Teaching ED 11/24 1412 Potassium Chloride 40 MEQ ONCE ONE 11/23 1045 DC 11/23 PO 11/23 1046 1124 Tiotropium [place] 1 PUF DAILY 11/22 1000 AC 11/24 INH 0820 Trazodone HCl 25 MG Q4H PRN 11/21 2315 AC 11/24 PO 1241 Last 24 Hrs of Lab/Contreras Results Last 24 Hrs of Labs/Mics: Laboratory Tests 11/24/16 0726: Anion Gap 7, Estimated GFR 53 L, BUN/Creatinine Ratio 18.0, CBC w Diff NO MAN DIFF REQ, RBC 3.85 L, MCV 80.4 L, MCH 26.7 L, RDW 15.2 H, MPV 7.0 L, Gran % 85.6 H, Lymphocytes % 5.2 L, Monocytes % 7.8, Eosinophils % 1.4, Basophils % 0 L, Absolute Granulocytes 9.9 H, Absolute Lymphocytes 0.6 L, Absolute Monocytes 0.9 H, Absolute Eosinophils 0.2, Absolute Basophils 0, PUBS MCHC 33.2 Assessment/Plan Assessment: Patient is a 86-year-old lady with past medical history of recently diagnosed CHF, COPD (not on home O2), HTN, hypothyroidism (on synthroid), pernicious anemia, RA, macular degeneration and depression/anxiety who was BIBA to [facility] after an episode of dizziness and near syncope as well as feeling generally weak. Patient denies palpitation, CP or SOB. Reports frequency, nocturia and loose stool. Assesment and Plan Sepsis Fever and leukocytosis & active UA and negative CXR suggesting sepsis in the setting of UTI. * Continue IV ceftriaxone to cover gram-negative bacteria * repeat another chest x-ray before any acute infection, Zithromax stopped. * Urine culture was admitted for gram-negative rods * Cultures positive for gram-negative rods most likely source is urogenital UTI UA suggestive of UTI, with pansensitive E.coli isolated. Plan Continue IV ceftriaxone Bacteremia Patient is growing gram-negative rods. Patient UA is suggestive of UTI and is positive for gram negative rods. she does not endorse any abdominal pain, though she has diarrhea episodes she reports frequent use of stool softener and possible laxatives. Therefore most likely source of the bacteremia is genitourinary. Plan Continue ceftriaxone IV Will monitor for any fever spikes MEGAN Elevated creatinine and BUN/creatinine ratio suggesting a prerenal cause including dehydration and CHF. Patient's clinical findings and CXR are not in accord with CHF. Currently resolving. * encourage drinking * follow up BEP in AM Hyponatremia Sodium levels resolving . Patient does have chronic hyponatremia and therefore no need for rapid correction .Patient appears hypovolemic with dry mucous membranes, not volume overloaded. most likely etiology is hypovolemic hyponatremia secondary from volume loss with diarrhea. Unremarkable TSH and T4 levels rules out hypothyroidism as the possible cause. * Will encourage fluid intake and hold off on any IV hydration * Will trend BEP History of CHF and pulmonary hypertension Patient follows with Dr. Flores. Last ECHO was performed in July 2016 and reported EF of 60-65%. Currently appears stable with no evidence of increased SOB, crackles in lungs, LE edema or CXR findings. * Echo may be pursued on outpatinet basis. History of COPD Currently stable. She has quit smoking since 8 months ago that she was hospitalized for COPD and CHF exacerbation. Not on home oxygen. * Continue Spiriva, Symbicort, Proventil History of hypothyroidism * Continue levothyroxine * Check TSH and free T4 History of anxiety and depression * Continue mirtazapine, trazodone and Lexapro Problem List: 1. UTI (urinary tract infection) Pain Ratin Pain Location: none Pain Goal: Remain pain free Pain Plan: mild pathway Tomorrow's Labs & Rationales: CBC-UTI BEP-TRENDING HYPONATREMIA
--- NOTE | 2016-11-24 14:45 | PN- Att Addend ---
Attending MD Review Statement Attending Statement Attending MD Statement: examined this patient, discuss w/resident/PA/STOGIE PACKER, agreed w/resident/PA/STOGIE PACKER, reviewed EMR data (avail), discussed w/nursing Attending Assessment/Plan: Laboratory Tests 11/24/16 0726: Anion Gap 7, Estimated GFR 53 L, BUN/Creatinine Ratio 18.0, CBC w Diff NO MAN DIFF REQ, RBC 3.85 L, MCV 80.4 L, MCH 26.7 L, RDW 15.2 H, MPV 7.0 L, Gran % 85.6 H, Lymphocytes % 5.2 L, Monocytes % 7.8, Eosinophils % 1.4, Basophils % 0 L, Absolute Granulocytes 9.9 H, Absolute Lymphocytes 0.6 L, Absolute Monocytes 0.9 H, Absolute Eosinophils 0.2, Absolute Basophils 0, PUBS MCHC 33.2 Vital Signs Date Time Temp Pulse Resp B/P Pulse O2 O2 Flow FiO2 Ox Delivery Rate 11/24 0805 95 Nasal 1.0L Cannula 11/24 0804 98.2 79 20 110/60 97 Nasal 1.0L Cannula 11/24 0800 96 Nasal 1.0L Cannula 11/24 0016 98.0 84 20 120/64 96 11/24 0000 96 Nasal 1.0L Cannula 11/23 1706 97.5 81 20 120/70 98 11/23 1617 90 Room Air 11/23 1600 96 Nasal 1.0L Cannula A/P- Sepsis sepsis secondary to UTI and positive blood cultures with gram negative rods and leukocytosis. Cultures back as E coli which is pansenstive- cont with iv ceftriaxone. wbc better. Afebrile. improving. f/u on urine and blood cultures. Will change to augmentin at time of discharge to complete total of 14 days. dysphagia- seen by speech. started on chopped foods and nectar thick liquids. Pt unhappy with that. will have speech see her again and see if she can be switched to regular diet. Deconditioning- PT recommended STR, will have case management look for a place. pt is confused intermittently. Unclear if this is her baseline and has some dementia vs possible infectious encephalopathy Repeat cxr shows no infiltrates. dced zithromax.
--- NOTE | 2016-11-24 14:52 | Discharge Summary ---
Visit Information Visit Dates Admission Date: 11/21/16 Discharge Date: 11/25/2016 Hospital Course Course Attending Physician: ABIGAIL CABAN,RENEA Lopez Primary Care Physician: MARTINA ABREU MD Hospital Course: Patient is a 86-year-old lady with past medical history of recently diagnosed CHF, COPD (not on home O2), HTN, hypothyroidism (on synthroid), pernicious anemia, RA, macular degeneration and depression/anxiety who was BIBA from [facility] to [facility] after an episode of dizziness and near syncope as well as feeling generally weak. Patient denies palpitation, CP or SOB. Reports frequency, nocturia and loose stool. Vital Signs Date Time Temp Pulse Resp B/P Pulse O2 O2 Flow FiO2 Ox Delivery Rate 11/21 224 94 Nasal 2.0L Cannula 11/21 2229 98.4 93 22 110/61 94 Nasal 2.0L Cannula 11/21 2126 100.9 92 18 119/65 100 Nasal 2.0L Cannula 11/21 1848 95 Nasal 2.0L Cannula 11/21 1803 98.7 87 20 116/55 100 Nasal 3.0L Cannula Physical Exam General Appearance Alert, Oriented X3, Cooperative, No Acute Distress Skin yhpopigmented lesions on the skin of the upper trunk and neck as well as upper extremities HEENT Atraumatic, PERRLA, EOMI, dry mucous membranes Neck Supple Cardiovascular Regular Rate, Normal S1, Normal S2, 2/6 systolic murmur Lungs decreased breath sounds, no wheezinf or rhonchi, no crackles Abdomen Normal Bowel Sounds, Soft, No Tenderness, No Hepatospenomegaly, no CVA tenderness Neurological Normal Speech, Strength at 5/5 X4 Ext, Normal Tone, Sensation Intact, Cranial Nerves 3-12 NL Extremities No Clubbing, No Cyanosis, No Edema, Normal Pulses, No Tenderness/ Swelling Vascular Normal Pulses, Pulses Symmetrical 11/21/162036: Urine Osmolality 267 L 11/21/162036: Urine Color YEL, Urine Clarity HAZY H, Urine pH 6.0, Ur Specific [place] 1.010, Urine Protein 100 H, Urine Ketones NEG, Urine Nitrite NEG, Urine Bilirubin NEG, Urine Urobilinogen 0.2, Ur Leukocyte Esterase LARGE H, Ur Microscopic SEDIMENT EXAMINED, Urine RBC 15-25 H, Urine WBC > 75 H, Ur Epithelial Cells MANY H, Urine Hemoglobin SMALL H, Urine Glucose NEG 11/21/161817: Anion Gap 9, Estimated GFR 39 L, BUN/Creatinine Ratio 25.4 H, Glucose 98, Serum Osmolality 282 L, Lactic Acid 1.3, Calcium 8.8, Magnesium 1.6, Total Bilirubin 0.5, AST 17, ALT 28, Alkaline Phosphatase 88, Troponin I 0.03, Total Protein 6.0 L, Albumin 2.9 L, Globulin 3.1, Albumin/Globulin Ratio 0.9 L, CBC w Diff MAN DIFF ORDERED, RBC 4.36, MCV 81.4, MCH 27.0, RDW 15.3 H, MPV 7.2 L, Gran % 93.2 H, Lymphocytes % 2.2 L, Monocytes % 4.5, Eosinophils % 0, Basophils % 0.1, Absolute Granulocytes 24.3 H, Segmented Neutrophils 80 H, Band Neutrophils 12 H, Absolute Lymphocytes 0.6 L, Lymphocytes 2 L, Monocytes 6, Absolute Monocytes 1.2 H, Absolute Eosinophils 0, Absolute Basophils 0, Platelet Estimate ADEQUATE, Normochromic RBCs VERIFIED, Anisocytosis 1+, PUBS MCHC 33.2 11/21/161814: pH 7.48 H, pCO2 34 L, pO2 68 L, HCO3 25, ABG O2 Sat (Measured) 94.0 L, P-50 (Temp Corrected) Y, Carboxyhemoglobin 0.4 L, O2 Concentration % RM/AIR, Temperature 98.3, O2 Delivery Method RA, Phlebotomy Draw Site RIGHT RADIAL Chest X-ray shows chronic changes with no acute airspace disease. patient was admitted to [facility] floor and treated for these medical conditions: #sepsis due to urologicla origin She was put on IV hydration and ceftriaxone. Blood cultures and urine cultures showed pansensitive Escherichia coli. She clinically she improved and WBC normalized. We transition her to keflex for 10 day total abx therapy. PT evaluation recommended STR.patient is confused intermittently and possibly that is her baseline.yasemin Brothers follow up is in outpatient setting MEGAN After IV hydration and antibiotic therapy patient creatinine proved to normal limits. we held diuretics. We discontinued the IV hydration. Hyponatremia Possibly due to volume loss. After the IV hydration and antibiotic therapy patient, Na returned to normal limits. History of CHF and pulmonary hypertension Patient follows with Dr. Flores. Last ECHO was performed in July 2016 and reported EF of 60-65%. Currently appears stable with no evidence of increased SOB, crackles in lungs, LE edema or CXR findings.No evetns were observed History of COPD, hypothyroidism,,anxiety and depression Continue medications with home dosages. No evetns were observed. TSH were within normal limits. Allergies: Coded Allergies: Iodinated Contrast Media - Oral and (Iodinated Contrast Media - IV Dye) (IVP DYE HIVES 03/12/16) Disposition Summary Disposition Principal Diagnosis: sepsis of urological origin MEGAN Additional Diagnosis: CHF COPD Discharge Disposition: SNF Discharge Instructions General Discharge Information Code Status: Do Not Resucitate/Intubat Patient's Diet: hearth healthy Patient's Activity: as tolerated Follow-Up Instructions/Appts: -Please follow-up with your primary care provider within 7 days after discharge. -We have made changes to your home medications, please read the instructions carefully. -Please come back to the hospital if your symptoms got worse. Medications at Discharge Discharge Medications: Continue taking these medications: Cyanocobalamin (Vitamin B-12) 1,000 MCG TABLET 1 Tablet ORAL DAILY Comments: Last Taken: 11/25/16 Time: 0900AM Albuterol Sulfate (Proair Hfa) 8.5 GM HFA.AER.AD 2 Puff Inhale through mouth Q4H as needed for SOB/WHEEZE Qty = 8 Comments: NOT GIVEN IN [facility] Budesonide/Formoterol Fumarate (Symbicort 160-4.5 Mcg Inhaler) 10.2 GM HFA.AER.AD 2 Puff Inhale through mouth TWICE DAILY Qty = 10 Comments: Last Taken: 11/25/16 Time: 0900AM Cholecalciferol (Vitamin D3) 1,000 UNIT TABLET 1 Tablet ORAL DAILY Comments: Last Taken: 11/25/16 Time: 0900AM Ergocalciferol (Vitamin D2) (Drisdol) 50,000 UNIT CAPSULE 1 Capsule ORAL ONCE A MONTH Comments: OF THE MONTH PER PT MED LIST [facility] Tiotropium [place] (Spiriva Respimat) 4 GM MIST.INHAL 1 PUFF Inhale through mouth DAILY Comments: PER PT MED LIST FROM [facility] Ferrous Sulfate (Ferrous Sulfate) 325 MG TABLET 1 Tablet ORAL TAKE AT BEDTIME Comments: NOT GIVEN Escitalopram Oxalate (Lexapro) 20 MG TABLET 1 Tablet ORAL DAILY Comments: Last Taken: 11/25/16 Time: 0900AM Levothyroxine Sodium (Levothyroxine Sodium) 100 MCG TABLET 1 Tablet ORAL DAILY Comments: Last Taken: 11/25/16 Time: 0600AM Trazodone HCl (Trazodone HCl) 50 MG TABLET 0.5 Tablet ORAL TAKE AT BEDTIME as needed for ANXIETY Comments: PER MED LIST FROM [facility] Albuterol Sulfate (Albuterol Sulfate) 2.5 MG/3 ML VIAL.NEB 1 Vial Inhale Solution Q2H as needed for SOB Comments: NOT GIVEN IN [facility] Guaifenesin (Adult Tussin Chest Congestion) (Unknown Strength) LIQUID Unknown Dose ORAL As Directed Comments: NOT GIVEN Calcium Carbonate (TUMS) (Unknown Strength) TAB.CHEW Unknown Dose ORAL As Directed Comments: NOT GIVEN IN HOSPITAL Melatonin (Melatonin) 3 MG TABLET 1 Tablet ORAL Every night as needed for INSOMNIA Comments: NOT GIVEN Docusate Sodium (Colace) 100 MG CAPSULE 1 Capsule ORAL EVERY OTHER DAY Comments: NOT GIVEN Omeprazole (Omeprazole) 40 MG CAPSULE.DR 1 Capsule ORAL DAILY Comments: Last Taken: 11/25/16 Time: 0600AM Furosemide (Lasix) 20 MG TABLET 1 Tablet ORAL NEEDED as needed for FLUID Potassium Chloride (Klor-Con M20) 20 MEQ TAB.ER.PRT 1 Tablet ORAL PRN as needed for REPLENISHMENT Sennosides (Senna) 8.6 MG TABLET 1 Tablet ORAL HS PRN as needed for CONSTIPATION [SUCRETS ORIGINAL] 2.4 Milligram ORAL QD PRN Loratadine/Pseudoephedrine (Claritin-D 12 Hour Tablet) 5 MG-120 MG TAB.ER.12H 1 Tablet ORAL QAM PRN as needed for ALLERGIES Calcium Polycarbophil (Fibercon) 625 MG TABLET 1 Tablet ORAL HS PRN as needed for BOWEL Start taking the following new medications: Cephalexin (Cephalexin) 500 MG CAPSULE 1 Capsule ORAL TWICE DAILY Qty = 20 No Refills Comments: NOT GIVEN IN HOSPITAL Copies To: BRADY CABAN,MARTINA Pacheco Attending MD Review Statement Documenting Attending: ABIGAIL CABAN,RENEA Lopez Other Findings: Pt being dced to [facility] in stable condition. see my attending note for more details.
--- NOTE | 2016-11-24 14:59 | Patient Discharge Instructions ---
Discharge Instructions General Discharge Information You were seen/treated for: sepsis due to urological origins Special Instructions: -Please follow-up with your primary care provider within 7 days after discharge. -We have made changes to your home medications, please read the instructions carefully. -Please come back to the hospital if your symptoms got worse. Diet Recommended Diet: Heart Healthy Activity Full Activity/No Limits: Yes (as tolerated) Acute Coronary Syndrome Inclusion Criteria At DC or during hospital stay patient has or had the following: ACS DIAGNOSIS No Discharge Core Measures Meds if any: Prescribed or Continued at Discharge Meds if any: NOT Prescribed or Continued at Discharge Congestive Heart Failure Inclusion Criteria At DC or during hospital stay patient has or had the following: CHF DIAGNOSIS No Discharge Core Measures Meds if any: Prescribed or Continued at Discharge Meds if any: NOT Prescribed or Continued at Discharge Cerebrovascular accident Inclusion Criteria At DC or during hospital stay patient has or had the following: CVA/TIA Diagnosis No Discharge Core Measures Meds if any: Prescribed or Continued at Discharge Meds if any: NOT Prescribed or Continued at Discharge Venous thromboembolism Inclusion Criteria VTE Diagnosis No VTE Type NONE VTE Confirmed by (Test) NONE Discharge Core Measures - Per Current guidelines, there needs to be overlap - treatment for the first 5 days of Warfarin therapy. - If discharged on Warfarin prior to 5 days of - overlap therapy, the patient will need to be - assessed for post discharge needs including - *Post discharge parental anticoagulation - *Warfarin and/or parental anticoagulation education - *Follow up date to check INR post discharge At least 5 days overlap therapy as Inpatient No Meds if any: Prescribed or Continued at Discharge Note: Overlap Therapy is Warfarin and Anticoagulant Meds if any: NOT Prescribed or Continued at Discharge
[2016-11-24 15:38] VITALS: BP 120/74
--- NOTE | 2016-11-24 17:34 | PN- Cardiology ---
Subjective Subjective: The patient is mildly confused. She reports that she is feeling mostly well. No chest pain. No shortness of breath. No palpitations. Objective Vital Signs and I&Os Vital Signs Date Time Temp Pulse Resp B/P Pulse O2 O2 Flow FiO2 Ox Delivery Rate 11/24 1606 Nasal 1.0L Cannula 11/24 1553 Nasal 1.0L Cannula 11/24 1538 94.5 94 20 120/74 94 11/24 0805 95 Nasal 1.0L Cannula 11/24 0804 98.2 79 20 110/60 97 Nasal 1.0L Cannula 11/24 0800 96 Nasal 1.0L Cannula 11/24 0016 98.0 84 20 120/64 96 11/24 0000 96 Nasal 1.0L Cannula Intake & Output 11/24 1600 11/24 0800 11/24 0000 11/23 1600 11/23 0800 11/23 0000 Intake Total 480 945 081 2884 120 120 Output Total 302 200 500 400 250 200 Balance 178 -80 -320 800 -130 -80 Intake, IV 0 Intake, Oral 480 751 265 4599 120 120 Number 3 1 2 Bowel Movements Output, Stool 2 Output, Urine 300 200 500 400 250 200 Patient 102 lb Weight Physical Exam: Gen: The patient is in no acute distress HEENT: Normal nose, ears, and oropharynx. Pupils equal bilaterally. Conjunctiva normal. Neck: Supple with no JVD, no masses, and no thyromegaly Lungs: Clear to auscultation with normal respiratory effort Heart: RRR, S1, S2, 2/6 systolic murmur, 1+ peripheral edema, 2+ pulses in the lower extremities bilaterally Abdomen: Soft, nontender, no masses. No hepatomegaly. No splenomegaly Extremities: No clubbing or cyanosis. Normal muscle strength in the upper and lower extremities Skin: Normal skin turgor with no skin ulcers or lesions noted. Current Medications: Current Medications Sig/Keesha Start time Last Medication Dose Route Stop Time Status Admin Albuterol Sulfate 3 ML Q4 HRS NEEDED PRN 11/21 2315 AC 11/23 INH 0832 Azithromycin 250 MG DAILY 11/24 1000 DC PO Budesonide/ 2 PUF BID 11/21 2301 AC 11/24 Formoterol Fumarate INH 0820 Ceftriaxone Sodium 1,000 MG 2200 11/21 2230 AC 11/23 IV 2146 Cholecalciferol 1,000 IU DAILY 11/22 1000 AC 11/24 PO 0820 Cyanocobalamin 1,000 MCG DAILY 11/22 1000 AC 11/24 PO 0820 Escitalopram Oxalate 10 MG DAILY 11/22 1000 AC 11/24 PO 0820 Heparin Sodium 5,000 UNIT Q8 11/22 0600 AC 11/24 (Porcine) SC 1347 Omeprazole 40 MG DAILY AC 11/22 0700 AC 11/24 PO 0546 Patient Medication 1 ED .[facility] 11/24 1411 MA Teaching ED 11/24 1412 Tiotropium [place] 1 PUF DAILY 11/22 1000 AC 11/24 INH 0820 Trazodone HCl 25 MG Q4H PRN 11/21 2315 AC 11/24 PO 1241 Results Last 48 Hrs of Labs/Mics: Laboratory Tests 11/24/16 0726: Anion Gap 7, Estimated GFR 53 L, BUN/Creatinine Ratio 18.0, CBC w Diff NO MAN DIFF REQ, RBC 3.85 L, MCV 80.4 L, MCH 26.7 L, RDW 15.2 H, MPV 7.0 L, Gran % 85.6 H, Lymphocytes % 5.2 L, Monocytes % 7.8, Eosinophils % 1.4, Basophils % 0 L, Absolute Granulocytes 9.9 H, Absolute Lymphocytes 0.6 L, Absolute Monocytes 0.9 H, Absolute Eosinophils 0.2, Absolute Basophils 0, PUBS MCHC 33.2 11/23/16 0725: Anion Gap 6, Estimated GFR 47 L, BUN/Creatinine Ratio 21.8, CBC w Diff MAN DIFF ORDERED, RBC 3.92 L, MCV 81.2, MCH 27.0, RDW 15.2 H, MPV 7.3 L, Gran % 87.3 H, Lymphocytes % 4.2 L, Monocytes % 8.1, Eosinophils % 0.4, Basophils % 0 L, Absolute Granulocytes 11.2 H, Segmented Neutrophils 79 H, Band Neutrophils 8 H, Absolute Lymphocytes 0.5 L, Lymphocytes 5 L, Monocytes 8, Absolute Monocytes 1.0 H, Absolute Eosinophils 0.1, Absolute Basophils 0, Anisocytosis 1 +, PUBS MCHC 33.2 Assessment/Plan Assessment/Plan Assessment: 1. Chronic diastolic heart failure 2. Mild to moderate mitral regurgitation with mild aortic regurgitation 3. Sepsis secondary to urinary tract infection 4. Blood culture positive for gram-negative rachid 5. Acute renal insufficiency likely secondary to volume depletion 6. No evidence of acute heart failure 7. Hypokalemia , resolved Plan: * Antibiotic therapy as per the medical service * Diuretics on hold. Continue telemetry? Not applicable
[2016-11-25] VITALS: BP 124/72
[2016-11-25 08:16] LABS: ABSOLUTE BASOPHIL COUNT 0 /CUMM (0.0-0.2); ABSOLUTE EOSINOPHIL COUNT 0.2 /CUMM (0.0-0.7); ABSOLUTE GRANULOCYTE CT 7.4 /CUMM (1.4-6.5); ABSOLUTE LYMPH COUNT 0.9 /CUMM (1.2-3.4); ABSOLUTE MONOCYTE COUNT 0.9 /CUMM (0.10-0.60); BASOPHIL % 0.3 % (0.0-2.0); EOSINOPHIL % 2.6 % (0-5); GRANULOCYTE % 78.1 % (42.2-75.2); HEMATOCRIT 32.4 % (37-47); MEAN CORPUSCULAR HGB 27.1 PG (27.0-31.0); PLATELET COUNT 274 /CUMM (130-400); RBC DISTRIBUTION WIDTH 15.6 % (11.5-14.5); RED BLOOD CELL CT 3.95 /CUMM (4.20-5.40); WHITE BLOOD CELL COUNT 9.4 /CUMM (4.8-10.8)
[2016-11-25 08:24] VITALS: BP 104/60
--- NOTE | 2016-11-25 09:47 | PN- Housestaff ---
Subjective Follow-up For: Sepsis of urological origin Subjective: Patient is seen and examined at bedside. She appears less confused compared to yesterday and actually apologizes and states that "sorry I was kind of confused yesterday". She is alert and oriented 3. No acute overnight event reported by nursing staff. Patient is curious about discharge disposition and questions were she was going. 12 point review of system negative. Review of Systems Constitutional: Reports: no symptoms. Objective Last 24 Hrs of Vital Signs/I&O Vital Signs Date Time Temp Pulse Resp B/P Pulse O2 O2 Flow FiO2 Ox Delivery Rate 11/25 1557 97.9 86 20 122/70 95 11/25 1424 98.5 78 18 104/60 11/25 0954 Nasal 1.0L Cannula 11/25 0945 Nasal 1.0L Cannula 11/25 0824 98.0 78 18 104/60 94 Room Air 11/25 0000 98.1 83 19 124/72 91 Room Air 11/24 2002 93 Room Air Intake & Output 11/25 1600 11/25 0800 11/25 0000 Intake Total 660 120 240 Output Total 525 200 100 Balance 135 -80 140 Intake, IV 10 Intake, Oral 650 120 240 Number 2 2 Bowel Movements Output, Urine 525 200 100 Physical Exam General Appearance: Alert, Oriented X3, Cooperative Skin: No Rashes, No Breakdown, appears mildly dry HEENT: Atraumatic, PERRLA Lymphatic: Axillary nl, Cervical nl Cardiovascular: Regular Rate, Normal S1, Normal S2 Lungs: Clear to Auscultation, Normal Air Movement Abdomen: Normal Bowel Sounds, Soft, No Tenderness Neurological: Normal Speech, Strength at 5/5 X4 Ext, Sensation Intact Extremities: No Clubbing, No Cyanosis, No Tenderness/Swelling Assessment/Plan Assessment: Patient is a 86-year-old lady with past medical history of recently diagnosed CHF, COPD (not on home O2), HTN, hypothyroidism (on synthroid), pernicious anemia, RA, macular degeneration and depression/anxiety who was BIBA to [facility] after an episode of dizziness and near syncope as well as feeling generally weak. Patient denies palpitation, CP or SOB. Reports frequency, nocturia and loose stool. Assesment and Plan Sepsis Fever and leukocytosis & active UA and negative CXR suggesting sepsis in the setting of UTI. Leukocytosis downtrending with no reports of elevated temperatures. UTI UA suggestive of UTI, with pansensitive E.coli isolated. Plan Will transition to oral antibiotic the need for a total 14 day coverage as patient exhibited bacteremia with acylate being similar to the one infecting the genitourinary area. The isolated bacteria is Escherichia coli which was shown to be pansensitive. Plan Cephalexin 500 mg by mouth twice a day for 10 days to complete a total antibiotic course of 14 days Bacteremia Patient is growing gram-negative rods. Patient UA is suggestive of UTI and is positive for gram negative rods. she does not endorse any abdominal pain, though she has diarrhea episodes she reports frequent use of stool softener and possible laxatives. Therefore most likely source of the bacteremia is genitourinary. MEGAN Elevated creatinine and BUN/creatinine ratio suggesting a prerenal cause including dehydration and CHF. Patient's clinical findings and CXR are not in accord with CHF. Currently resolving. * encourage drinking * follow up BEP in AM Hyponatremia Sodium levels resolving . Patient does have chronic hyponatremia and therefore no need for rapid correction .Patient appears hypovolemic with dry mucous membranes, not volume overloaded. most likely etiology is hypovolemic hyponatremia secondary from volume loss with diarrhea. Unremarkable TSH and T4 levels rules out hypothyroidism as the possible cause. History of CHF and pulmonary hypertension Patient follows with Dr. Flores. Last ECHO was performed in July 2016 and reported EF of 60-65%. Currently appears stable with no evidence of increased SOB, crackles in lungs, LE edema or CXR findings. * Echo may be pursued on outpatinet basis. History of COPD Currently stable. She has quit smoking since 8 months ago that she was hospitalized for COPD and CHF exacerbation. Not on home oxygen. * Continue Spiriva, Symbicort, Proventil History of hypothyroidism * Continue levothyroxine History of anxiety and depression * Continue mirtazapine, trazodone and Lexapro Problem List: 1. Sepsis 2. UTI (urinary tract infection) Pain Ratin Pain Location: None Pain Goal: Remain pain free Pain Plan: Pain pathway Tomorrow's Labs & Rationales: None (patient is getting discharged today)
[2016-11-25] MEDS ORDERED: CEPHALEXIN500 M3 PO (11:56)
--- NOTE | 2016-11-25 12:07 | ECHOCARDIOGRAM REPORT ---
DHEERAJ ZAMUDIO Age: 86 : 1930 Gender: F Exam Date: 11/24/2016 17:03 Exam Location: [address] [place] [address] Ht (in): 60 Wt (lb): 101 BSA: 1.39 BP: 118 / 60 Ordering Physician: MIGUEL FLOOD MD Referring Physician: Ana Flores MD Technologist: Miroslava Artis [facility] Room Number: 205 Indications: HEART FAILURE Rhythm: Sinus Technical Quality: Fair FINDINGS Left Ventricle Normal size left ventricle. No obvious regional wall motion abnormalities. Left ventricular wall thickness increased. Normal left ventricular ejection fraction estimated at 60-65%. Right Ventricle Right ventricle at upper limits of normal. Right Atrium Right atrial dilatation. Left Atrium Moderate left atrial dilatation. Mitral Valve Moderate thickening/calcification of the anterior mitral valve leaflet. Mitral annular calcification. Prolapse of the anterior mitral valve leaflet. Moderate mitral regurgitation. Posteriorly directed mitral regurgitation jet. Aortic Valve Trileaflet aortic valve. Diffuse thickening (sclerosis) of the aortic valve cusps without reduced excursion. No aortic stenosis. Mild aortic regurgitation. Tricuspid Valve Tricuspid valve not well visualized, grossly normal. Mild tricuspid regurgitation. Right ventricular systolic pressure estimated to be elevated at 50 mmHg. Pulmonic Valve Pulmonic valve not well visualized. Pericardium Normal pericardium. No pericardial effusion. Great Vessels Mildly dilated proximal ascending aorta (tube). CONCLUSIONS 1. Aortic sclerosis is present with mild aortic insufficiency and mild dilatation of the ascending aorta. 2. Moderate thickening and calcification of the mitral leaflets is present with anular calcification and eccentric mitral insufficiency which is at least moderate in severity with moderate left atrial enlargement. There appears to be mild systolic prolapse of the anterior mitral leaflet present. 3. There is no significant pericardial fluid present . 4. The left ventricular chamber size is normal with mild to moderate concentric hypertrophy and a normal ejection fraction with no obvious resting wall motion abnormalities. 5. Mild tricuspid insufficiency is present with right atrial enlargement and pulmonary hypertension with an estimated RV systolic pressure of 50 mmHg. Ana Flores M.D. (Electronically Signed) Final Date: 25 November 2016 12:05 MEASUREMENTS (Male / Female) Normal Values 2D ECHO LV Diastolic Diameter PLAX 4.2 cm 4.2 - 5.9 / 3.9 - 5.3 cm LV Systolic Diameter PLAX 2.7 cm 2.1 - 4.0 cm LV Fractional Shortening PLAX 35.7 % 25 - 46 % LV Ejection Fraction 2D Teich 65.6 % IVS Diastolic Thickness 1.4 cm LVPW Diastolic Thickness 1.3 cm LV Relative Wall Thickness 0.6 RV Internal Dim ED PLAX 2.4 cm 1.9 - 3.8 cm LVOT Diameter 2.0 cm Aortic Root Diameter 3.4 cm LA Systolic Diameter LX 3.8 cm 3.0 - 4.0 / 2.7 - 3.8 cm LA Volume 71.0 cm 18 - 58 / 22 - 52 cm Ascending Aorta Diameter 3.5 cm DOPPLER AV Peak Velocity 156.0 cm/s AV Peak Gradient 9.7 mmHg AV Mean Velocity 99.3 cm/s AV Mean Gradient 5.0 mmHg AV Velocity Time Integral 31.0 cm LVOT Peak Velocity 109.0 cm/s LVOT Peak Gradient 4.8 mmHg LVOT Mean Velocity 68.3 cm/s LVOT Mean Gradient 2.0 mmHg LVOT Velocity Time Integral 22.0 cm LVOT Stroke Volume 69.1 cm AV Area Cont Eq vti 2.2 cm AV Area Cont Eq pk 2.2 cm MV Peak Velocity 161.0 cm/s MV Peak Gradient 10.4 mmHg MV Mean Velocity 76.6 cm/s MV Mean Gradient 3.0 mmHg Mitral E Point Velocity 138.0 cm/s Mitral A Point Velocity 115.0 cm/s Mitral E to A Ratio 1.2 MV PHT Velocity 169.0 cm/s MV Deceleration Dickson 861.0 cm/s MV Pressure Half Time 58.9 ms MV Area PHT 3.7 cm MV Deceleration Time 222.0 ms MR Peak Velocity 558.5 cm/s MR Peak Gradient 124.8 mmHg MR ERO PISA 0.3 cm MR Regurgitant Volume PISA 61.2 cm TR Peak Velocity 337.0 cm/s TR Peak Gradient 45.4 mmHg Right Atrial Pressure 5.0 mmHg Pulmonary Artery Systolic Pressu 50.4 mmHg Right Ventricular Systolic Press 50.4 mmHg PV Peak Velocity 86.9 cm/s PV Peak Gradient 3.0 mmHg PV Mean Velocity 55.6 cm/s PV Mean Gradient 1.0 mmHg PV Velocity Time Integral 13.9 cm LV E' Lateral Velocity 9.5 cm/s Mitral E to LV E' Lateral Ratio 14.5 LV E' Septal Velocity 7.5 cm/s Mitral E to LV E' Septal Ratio 18.4
--- NOTE | 2016-11-25 14:03 | PN- Att Addend ---
Attending MD Review Statement Attending Statement Attending MD Statement: examined this patient, discuss w/resident/PA/DIS[employer]SEM[employer]ER [employer]ODUCT, agreed w/resident/PA/DIS[employer]SEM[employer]ER [employer]ODUCT, reviewed EMR data (avail), discussed w/nursing Attending Assessment/Plan: Laboratory Tests 11/25/16 0629: Anion Gap 6, Estimated GFR 53 L, BUN/Creatinine Ratio 13.0, CBC w Diff NO MAN DIFF REQ, RBC 3.95 L, MCV 82.0, MCH 27.1, RDW 15.6 H, MPV 7.0 L, Gran % 78.1 H, Lymphocytes % 9.7 L, Monocytes % 9.3, Eosinophils % 2.6, Basophils % 0.3, Absolute Granulocytes 7.4 H, Absolute Lymphocytes 0.9 L, Absolute Monocytes 0.9 H, Absolute Eosinophils 0.2, Absolute Basophils 0, PUBS MCHC 33.0 Vital Signs Date Time Temp Pulse Resp B/P Pulse O2 O2 Flow FiO2 Ox Delivery Rate 11/25 0954 Nasal 1.0L Cannula 11/25 0945 Nasal 1.0L Cannula 11/25 0824 98.0 78 18 104/60 94 Room Air 11/25 0000 98.1 83 19 124/72 91 Room Air 11/24 2002 93 Room Air 11/24 1606 Nasal 1.0L Cannula 11/24 1600 Room Air 11/24 1553 Nasal 1.0L Cannula 11/24 1538 94.5 94 20 120/74 94 A/P- Sepsis sepsis secondary to UTI and positive blood cultures with gram negative rods and leukocytosis. Cultures back as E coli which is pansenstive- cont with iv ceftriaxone. wbc better. Afebrile. improving. f/u on urine and blood cultures. Will change to augmentin at time of discharge to complete total of 14 days. dysphagia- seen by speech. started on chopped foods and nectar thick liquids. Pt unhappy with that. Pt switched to regular diet after speech reevaluation. Deconditioning- PT recommended STR, will have case management look for a place. pt is confused intermittently. Unclear if this is her baseline and has some dementia vs possible infectious encephalopathy
[2016-11-25] MEDS ORDERED: MELATONIN3 M4 PO (14:13)
[2016-11-25] MEDS ORDERED: COLACE100 M1 PO (14:17)
[2016-11-25] MEDS ORDERED: OMEPRAZOLE40 M1 PO (14:18)
[2016-11-25 14:24] VITALS: BP 104/60
[2016-11-25] MEDS ORDERED: LASIX20 M1 PO (14:54)
[2016-11-25] MEDS ORDERED: KLOR-CON M2020 ME1 PO (14:55)
[2016-11-25] MEDS ORDERED: SENNA8.6 M3 PO (15:11)
[2016-11-25] MEDS ORDERED: [UNRECOGNIZED DRUG - OTHER] PO (15:13)
[2016-11-25] MEDS ORDERED: CLARITIN-D 121 EACH PO (15:14)
[2016-11-25 15:57] VITALS: BP 122/70
== END 2016-11-25 17:45 | DRG 872 ==
LOC: ENRESERVDT → ENRESERVTM → ERH 17:51 → 2NB 19:15 → ENPENDDIS 19:15 → ERHI 19:15 → 2NB 22:13 → CMPBEDREQ 11-22 10:05 → 2NB 11-23 07:54
PROVIDERS: Physician Assistant; Student in an Organized Health Care Education/Training Program; ADMIT Student in an Organized Health Care Education/Training Program
DX: A41.9 Sepsis, unspecified organism (principal); N17.9 Acute kidney failure, unspecified; N39.0 Urinary tract infection, site not specified; I11.0 Hypertensive heart disease with heart failure; I50.32 Chronic diastolic (congestive) heart failure; E87.1 Hypo-osmolality and hyponatremia; D51.0 Vitamin B12 deficiency anemia due to intrinsic factor deficiency; J44.9 Chronic obstructive pulmonary disease, unspecified; E87.6 Hypokalemia; E03.9 Hypothyroidism, unspecified; M06.9 Rheumatoid arthritis, unspecified; H35.30 Unspecified macular degeneration; F41.8 Other specified anxiety disorders; I08.0 Rheumatic disorders of both mitral and aortic valves; Z87.891 Personal history of nicotine dependence
CPT/HCPCS: 2NBP; 2NBSP; 84133; 84300; 36415; 81001; 82436; 82570; 87040; 87086; 93005; 93010; 93306; 97116-GO; 97161-GP; 97530-GO; 99291; J0456; J0696; J1644; J3490; J7040

== ENCOUNTER 2017-03-15 08:33 | Inpatient (IN) | payer OTHER, MEDICARE ==
[~2017-03-15] VITALS: Ht 152.4 cm; Wt 46.3 kg
[~2017-03-15 08:33] MED LIST changes: +CEPHALEXIN500 M3 PO; +CLARITIN-D 121 EACH PO; +COLACE100 M1 PO; +LASIX20 M1 PO; +MELATONIN3 M4 PO; +SENNA8.6 M3 PO; +[UNRECOGNIZED DRUG - OTHER] PO
--- NOTE | 2017-03-15 08:47 | ED DYSPNEA/ASTHMA COMPLAINT ---
See Addendum History of Present Illness General Chief Complaint: Dyspnea (COPD, CHF, Other) Stated Complaint: BIBA SOB Source: patient, old records, EMS Exam Limitations: no limitations Vital Signs & Intake/Output Vital Signs & Intake/Output Vital Signs Date Time Temp Pulse Resp B/P B/P Pulse O2 O2 Flow FiO2 Mean Ox Delivery Rate 03/15 1238 98.9 91 15 112/67 99 Nasal 2.0L Cannula 03/15 1142 97.9 82 22 128/60 96 Nasal 2.0L Cannula 03/15 0847 90 Room Air 03/15 0836 97.2 80 22 150/80 92 Room Air Allergies Coded Allergies: Iodinated Contrast Media - Oral and (Iodinated Contrast Media - IV Dye) (IVP DYE HIVES 03/12/16) Reconcile Medications Albuterol Sulfate (Proair Hfa) 8.5 GM HFA.AER.AD 2 PUF INH Q4H PRN SOB/WHEEZE (Reported) Albuterol Sulfate 2.5 MG/3 ML VIAL.NEB 1 Vial INH/SUSAN Q2H PRN SOB (Reported) Budesonide/Formoterol Fumarate (Symbicort 160-4.5 Mcg Inhaler) 10.2 GM HFA.AER.AD 2 PUF INH BID COPD (Reported) Cholecalciferol (Vitamin D3) 1,000 UNIT TABLET 1 TAB PO DAILY SUPPLEMENT ( Reported) Cyanocobalamin (Vitamin B-12) 1,000 MCG TABLET 1 TAB PO DAILY VITAMIN SUPPORT (Reported) Docusate Sodium (Colace) 100 MG CAPSULE 1 CAP PO EVERY OTHER DAY BOWEL REGIMEN (Reported) Ferrous Sulfate 325 MG TABLET 1 TAB PO QHS SUPPLEMENT (Reported) Furosemide (Lasix) 20 MG TABLET 1 TAB PO PRN PRN FLUID (Reported) Guaifenesin (Adult Tussin Chest Congestion) (Unknown Strength) LIQUID (Unknown Dose) PO AD COUGH (Reported) Levothyroxine Sodium 100 MCG TABLET 1 TAB PO DAILY THYROID (Reported) Loratadine/Pseudoephedrine (Claritin-D 12 Hour Tablet) 5 MG-120 MG TAB.ER.12H 1 TAB PO QAM PRN PRN ALLERGIES (Reported) Melatonin 3 MG TABLET 1 TAB PO QPM PRN INSOMNIA (Reported) Sennosides (Senna) 8.6 MG TABLET 1 TAB PO HS PRN PRN CONSTIPATION (Reported) Tiotropium [place] (Spiriva Respimat) 4 GM MIST.INHAL 1 PUFF INH DAILY COPD ( Reported) Trazodone HCl 50 MG TABLET 0.5 TAB PO QHS PRN ANXIETY (Reported) Triage Note: PT TO ED FOR WORSENING COPD EXACERBATION OVER PAST 24 HOURS, ARRIVES TO ED ON NEB TX, ROOM AIR SAT 90%, PT REPORTING SHE DOES NOT WEAR HOME 02. DENIES ANY FEVER, WORSENING WEAKNESS. REPORTING INCREASE IN CLEAR SPUTUM AND COUGHING OF YESTERDAY. PT ALERT AND ORIENTED, LUNGS DIMINISHED THROUGHOUT. PT HAS A "GROWTH" TO STERNUM OF CHEST, PT REPORTING "IT'S BEEN THERE FOR 40 YEARS WE ARENT GOING TO DO ANYTHING ABOUT IT" NO S/S OF INFECTION NOTED, NO AREAS OF SKIN BREAKDOWN NOTED, PT ARRIVES WEARING DRY BRIEF FROM ASSISTED LIVING. PT DENIES ANY CP, PALPITATIONS, PLACED ON 2LNC AND 02 IMPROVED TO 93%. PT CHANGED INTO HOSPITAL GOWN, MULTIPLE WARM BLANKETS PLACED ON PT PER PT'S MULTIPLE REQUESTS SINCE ARRIVAL TO ED. Triage Nurses Notes Reviewed? yes Onset: Abrupt (LAST NIGHT) Duration: hour(s): (1), day(s):, constant, continues in ED Timing: recent history (copd) Severity: mild, moderate Activities at Onset: rest Prior Episodes/Possible Cause: frequent episodes, chronic episodes Associated Symptoms: cough, weakness : No Patient currently breastfeeds: No HPI: 86-year-old female with a history of COPD and mitral regurgitation brought in by once from assisted living facility complaining of productive cough for the past 2 days. Patient has a history of COPD and is not on oxygen at home she feels as though her breathing is at baseline but recently started coughing up clear sputum yesterday. Patient reports difficulty sleeping due to cough and is feeling weak. She currently denies any chest pain, swelling in the legs, shortness of breath no fevers, any other pain. Onset was acute quality was severe as a required patient to come to the emergency department. Patient was given a DuoNeb by EMS in route to emergency department and reports feeling better after the treatment. (BENNIE PEREZ,AGNES) Past History Travel History Traveled to [place] past 21 day No Medical History Any Pertinent Medical History? see below for history Neurological: NONE EENT: macular degeneration Cardiovascular: hypertension, mitral regurgitation (SEVERE) Respiratory: COPD, pulmonary hypertension Gastrointestinal: NONE Hepatic: NONE Renal: NONE Musculoskeletal: disk herniation, spinal stenosis Psychiatric: anxiety, depression Endocrine: hypothyroidism Blood Disorders: PERNICIOUS ANEMIA Cancer(s): NONE NUCLEAR MEDICINE TECHNOLOGIST/Reproductive: NONE History of MRSA: No History of VRE: No History of CDIFF: No Tetanus Vaccine: 11/01/15 Surgical History Surgical History: hysterectomy, spinal surgery Psychosocial History Who do you live with Spouse Services at Home Nursing What is your primary language Croatian Tobacco Use: Current Not Daily ETOH Use: denies use Illicit Drug Use: denies illicit drug use Family History Family History, If Any: FATHER (Colon Cancer, ). MOTHER (RA, ). Hx Contributory? No (BENNIE PEREZ,AGNES) Review of Systems Review of Systems Constitutional: Reports: see HPI, malaise, weakness. EENTM: Reports: no symptoms. Respiratory: Reports: see HPI, cough. Cardiovascular: Reports: no symptoms. GI: Reports: no symptoms. Genitourinary: Reports: no symptoms. Musculoskeletal: Reports: no symptoms. Skin: Reports: no symptoms. Neurological/Psychological: Reports: no symptoms. Hematologic/Endocrine: Reports: no symptoms. Immunologic/Allergic: Reports: no symptoms. All Other Systems: Reviewed and Negative (BENNIE PEREZ,AGNES) Physical Exam Physical Exam General Appearance: no apparent distress, alert, awake, comfortable, thin Head: atraumatic, normal appearance Eyes: Bilateral: normal appearance, PERRL, EOMI. Ears, Nose, Throat: normal pharynx, normal ENT inspection, hearing grossly normal Neck: normal inspection, supple, full range of motion Respiratory: chest non-tender, no respiratory distress, quiet respiration ( diminished), decreased breath sounds Cardiovascular: regular rate/rhythm, murmur (mitral regurg ) Peripheral Pulses: 2+ radial (R), 2+ radial (L) Gastrointestinal: normal bowel sounds, soft, non-tender, no organomegaly Extremities: normal inspection, normal capillary refill, normal range of motion, no edema Neurologic/Psych: no motor/sensory deficits, awake, alert, oriented x 3, normal mood/affect Skin: intact, normal color, warm/dry Lymphatic: no anterior cervical kenji Core Measures ACS in differential dx? Yes Severe Sepsis Present: No Septic Shock Present: No (BENNIE PEREZ,AGNES) Progress Differential Diagnosis: AMI, bronchitis, CHF, COPD, pericarditis, pulmonary embolism, pneumonia, pneumothorax, unstable angina Plan of Care: Orders Procedure Date/time Status BASIC ELECTROLYTES PLUS BUN&CR 03/16 0600 Active Heart Healthy Diet 03/15 L Active TROPONIN LEVEL 03/15 1500 Active EKG 03/15 1500 Active Code Status 03/15 1237 Active TROPONIN LEVEL 03/15 1212 Active EKG 03/15 1212 Active Pathway - chart 03/15 1209 Active Pathway - chart 03/15 1057 Active House Staff 03/15 1057 Active Code Status 03/15 1057 Complete Patient Data 03/15 1023 Active Intake & Output 03/15 1012 Active OXYGEN SETUP (GEN) 03/15 1003 Active Saline Lock 03/15 1003 Active Admit to inpatient 03/15 1003 Active Vital Signs 03/15 1003 Active Activity/Ambulation 03/15 1003 Active Code Status 03/15 1003 Complete Add-on Test (ER Only) 03/15 0916 Active URINALYSIS 03/15 0909 Complete Add-on Test (ER Only) 03/15 0902 Active D-DIMER 03/15 0902 Complete TROPONIN LEVEL 03/15 0851 Complete MAGNESIUM 03/15 0851 Complete B-TYPE NATRIURETIC PEP (BNP) 03/15 0851 Complete COMPREHENSIVE METABOLIC PANEL 03/15 0834 Complete CBC WITHOUT DIFFERENTIAL 03/15 0834 Complete EKG 03/15 0833 Active TRC EVALUATION (GEN) 03/15 UNK Active PT Evaluate & Treat 03/15 UNK Active VTE Mechanical Prophylaxis 03/15 UNK Active Intake & Output 03/15 UNK Active Current Medications Sig/Keesha Start time Last Medication Dose Stop Time Status Admin Ferrous Sulfate 325 MG 2200 03/15 2200 AC (Feosol) Heparin Sodium 5,000 UNIT Q8 03/15 1400 AC (Porcine) Acetaminophen 650 MG Q6P PRN 03/15 1215 AC (Tylenol) Senna/Docusate Sodium 1 TAB AT BEDTIME PRN 03/15 1215 UNVr (Senokot S) Acetaminophen 1,000 MG Q6 / 1208 UNVr (Ofirmev) Albuterol Sulfate 3 ML Q4 HRS NEEDED PRN 03/15 1200 AC (Proventil) Guaifenesin 10 ML Q4P PRN 03/15 1200 AC (Robitussin) Loratadine 10 MG DAILY PRN 03/15 1200 AC (Claritin) Melatonin 3 MG QPM PRN 03/15 1200 AC (Melatonin) Senna/Docusate Sodium 2 TAB DAILY PRN 03/15 1200 AC (Senokot S) Tiotropium [place] 1 PUF DAILY 03/15 1200 AC (Spiriva) Levothyroxine Sodium 0.1 MG DAILY AC 03/15 1158 AC (Synthroid) Cyanocobalamin 1,000 MCG DAILY 03/15 1156 AC (Vitamin B12) Cholecalciferol 1,000 IU DAILY 03/15 1155 AC (Vitamin D) Budesonide/ 2 PUF BID 03/15 1154 AC Formoterol Fumarate (Symbicort) Laboratory Tests 03/15/17 1240: Troponin I Pending 03/15/17 0954: Urine Color YEL, Urine Clarity CLEAR, Urine pH 7.5, Ur Specific [place] 1.010, Urine Protein NEG, Urine Ketones NEG, Urine Nitrite NEG, Urine Bilirubin NEG, Urine Urobilinogen 0.2, Ur Leukocyte Esterase NEG, Ur Microscopic EXAM NOT REQUIRED, Urine Hemoglobin NEG, Urine Glucose NEG 03/15/17 0916: Magnesium Cancelled 03/15/17 0902: Troponin I Cancelled, Hck-C-Eokevgwijfd Pept Cancelled 03/15/17 0851: Anion Gap 7, Estimated GFR 60, BUN/Creatinine Ratio 11.1, Glucose 81, Calcium 8.9, Magnesium 1.6, Total Bilirubin 0.4, AST 11 L, ALT 17, Alkaline Phosphatase 73, Troponin I 0.01, Nwe-D-Ifjwuqrkzgi Pept 9850 H, Total Protein 6.4, Albumin 3.2 L, Globulin 3.2, Albumin/Globulin Ratio 1.0 L, D-Dimer High Sensitivty 390 H, CBC w Diff NO MAN DIFF REQ, RBC 4.05 L, MCV 82.1, MCH 26.7 L, RDW 15.0 H, MPV 6.1 L, Gran % 80.4 H, Lymphocytes % 11.5 L, Monocytes % 6.5, Eosinophils % 1.2, Basophils % 0.4, Absolute Granulocytes 8.5 H, Absolute Lymphocytes 1.2, Absolute Monocytes 0.7 H, Absolute Eosinophils 0.1, Absolute Basophils 0, PUBS MCHC 32.5 L 03/15/17 954am: Patient was given another DuoNeb in the emergency department along with 125 Solu-Medrol IV. Labs are drawn chest x-ray taken. Patient was given 2 L of oxygen via nasal cannula and is satting in the low 90s. Patient will be monitored in the emergency department. 10:18 AM BNP is elevated to over 9000 chest x-ray shows pulmonary edema. After DuoNeb patient reports breathing easier but crackles are now auscultated bilaterally in all lung kaur. Patient will be given 20 mg of Lasix IV. Patient's nurse was called to discuss situation and reports that she has never been in CHF like this before. Lasix had been previously discontinued for her because of hypotension. PT is going to be admitted for CHF exacerbation. 12;14; Troponin negative. (AGNES AVERY PA-C) Diagnostic Imaging: Viewed by Me: Radiology Read. Initial ED EKG: rhythm (A FLUTTER ), LBBB, no ST T wave changes Prior EKG: unchanged Comments: EXAMINATION: XR PORTABLE CHEST CLINICAL INFORMATION: Shortness of breath. COPD. COMPARISON: November 22, 2016 and studies dating back to March 12, 2016 TECHNIQUE: Portable AP view of the chest was obtained. FINDINGS: There is again noted to be retrocardiac disease within the left lower lobe. The cardiopericardial silhouette is enlarged. There has been some waxing and waning of interstitial disease which is now more prominent than on prior study consistent with pulmonary vascular congestion. There also appears to be some new airspace disease at the right base compared to most recent study with findings consistent of pulmonary edema. No pneumothorax is evident. No significant pleural effusion is appreciated. IMPRESSION: Chronic left lower lobe disease. Cardiomegaly with pulmonary edema. DICTATED BY: MICHAEL OLIVEROS MD DATE/TIME DICTATED:03/15/17942 DIRECTOR CAREER:ENRIQUETA DATE/TIME TRANSCRIBED:03/15/17942 (AGNES AVERY PA-C) Departure Departure Disposition: STILL A PATIENT Condition: Stable Referrals: BRADY CABAN,MARTINA Pacheco (PCP/Family) Departure Forms: Customer Survey General Discharge Information Admission Note Spoke With: CHRISTIANO GARDUNO MD Documentation of Exam: Patient will be admitted for possible CHF exacerbation. She will have additional workup to include serial labs medication adjustment and oxygen administration. (AGNES AVERY PA-C) Departure Clinical Impression Primary Impression: CHF exacerbation Qualifiers: Congestive heart failure type: unspecified congestive heart failure type Qualified Code: I50.9 - Heart failure, unspecified Secondary Impressions: COPD with exacerbation PA/DIRECTOR OF COUNTERINTELLIGENCE Co-Sign Statement Statement: ED Attending supervision documentation- x I saw and evaluated the patient. I have also reviewed all the pertinent lab results and diagnostic results. I agree with the findings and the plan of care as documented in the PA's/DIRECTOR OF COUNTERINTELLIGENCE's documentation. [] I have reviewed the ED Record and agree with the PA's/DIRECTOR OF COUNTERINTELLIGENCE's documentation. [] Additions or exceptions (if any) to the PAs/DIRECTOR OF COUNTERINTELLIGENCE's note and plan are summarized below: [] (DENISE CABAN,WILLY) Critical Care Note Critical Care Note Critical Care Time: non-applicable (BENNIE PEREZ,AGNES)
--- NOTE | 2017-03-15 08:55 | NUR ---
LABS DRAWN AND SENT BY THIS [facility] BLUE, SST, LAV, PINK, RAMOS
[2017-03-15 09:01] LABS: ABSOLUTE BASOPHIL COUNT 0 /CUMM (0.0-0.2); ABSOLUTE EOSINOPHIL COUNT 0.1 /CUMM (0.0-0.7); ABSOLUTE GRANULOCYTE CT 8.5 /CUMM (1.4-6.5); ABSOLUTE LYMPH COUNT 1.2 /CUMM (1.2-3.4); ABSOLUTE MONOCYTE COUNT 0.7 /CUMM (0.10-0.60); BASOPHIL % 0.4 % (0.0-2.0); EOSINOPHIL % 1.2 % (0-5); GRANULOCYTE % 80.4 % (42.2-75.2); HEMATOCRIT 33.3 % (37-47); MEAN CORPUSCULAR HGB 26.7 PG (27.0-31.0); MEAN CORPUSCULAR HGB CONC 32.5 G/DL (33.0-37.0); MEAN CORPUSCULAR VOLUME 82.1 FL (81.0-99.0); MEAN PLATELET VOLUME 6.1 FL (7.4-10.4); PLATELET COUNT 379 /CUMM (130-400); RED BLOOD CELL CT 4.05 /CUMM (4.20-5.40); WHITE BLOOD CELL COUNT 10.6 /CUMM (4.8-10.8)
--- NOTE | 2017-03-15 09:05 | NUR ---
RT AT BEDSIDE FOR NEB TX
--- NOTE | 2017-03-15 09:49 | RADIOLOGY REPORT ---
EXAMINATION: XR PORTABLE CHEST CLINICAL INFORMATION: Shortness of breath. COPD. COMPARISON: November 22, 2016 and studies dating back to March 12, 2016 TECHNIQUE: Portable AP view of the chest was obtained. FINDINGS: There is again noted to be retrocardiac disease within the left lower lobe. The cardiopericardial silhouette is enlarged. There has been some waxing and waning of interstitial disease which is now more prominent than on prior study consistent with pulmonary vascular congestion. There also appears to be some new airspace disease at the right base compared to most recent study with findings consistent of pulmonary edema. No pneumothorax is evident. No significant pleural effusion is appreciated. IMPRESSION: Chronic left lower lobe disease. Cardiomegaly with pulmonary edema.
--- NOTE | 2017-03-15 09:56 | NUR ---
URINE TRIO SENT BY THIS [facility]
--- NOTE | 2017-03-15 10:11 | NUR ---
PT REQUESTING THIS RN CALL HER VISITING NURSE TO UPDATE HER ON HER STATUS AND POC WHILE IN ED, I CALLED ANA AT THE NUMBER PROVIDED BY THE PATIENT AND LEFT A VM PER PT'S REQUEST
--- NOTE | 2017-03-15 10:21 | NUR ---
PT MEDICATED WITH LASIX PER EMAR, INFORMED ON USE OF CALL REYNOLDS WHEN SHE NEEDS TO VOID, PT EXPRESSED UNDERSTANDING. REQUESTING BREAKFAST, WILL NOTIFY PA
--- NOTE | 2017-03-15 10:31 | History & Physical ---
ELLIE VIDAL 03/15/17 1030: General Information and HPI MD Statement: I have seen and personally examined DHEERAJ ZAMUDIO and documented this H&P. The patient is a 86 year old F who presented with a patient stated chief complaint of [worsening Dyspnea]. Source of Information: patient, old records Exam Limitations: no limitations History of Present Illness: A 86 years old w/ HFpEF w/ EF of 60-65% presented to ED w/ complains of weakness /??? shortness of breath and fatigue. She has past medical history significant for hypothyroidism, macular degeneration, depression and anxiety, COPD not on home oxygen, Pernicious anemia. She was recently admitted to for sepsis of UTI origin, 11/21/2016-11/25/2016. Patient leaves in [facility] [employer], uses walker for ambulation, at baseline very limited activity. She has been compliant with her medications, but did not take any of her Nebulizers for the past week or 10 days. At her baseline, due to her COPD and, maybe, restrictive lung disease, she has SOB on exertion with even mild ambulation that has not changed. Patient has been briging coupious, stable, amounts of white sputum that has not changed in any ways. For the past few days she has not use her symbicort and spiriva. She felt more stuffy (nose is clogged ) and SOB. She denies any orthopnea, peripheral swelling, increase in abdominal girth, chest pain, sick contact, travel, N/V/D, fever or shacking chills and GI/ symptoms. Allergies/Medications Compliance With Home Meds: GOOD Past History Travel History Traveled to [place] past 21 day No Medical History Neurological: NONE EENT: macular degeneration Cardiovascular: hypertension, mitral regurgitation (SEVERE) Respiratory: COPD, pulmonary hypertension Gastrointestinal: NONE Hepatic: NONE Renal: NONE Musculoskeletal: disk herniation, spinal stenosis Psychiatric: anxiety, depression Endocrine: hypothyroidism Blood Disorders: PERNICIOUS ANEMIA Cancer(s): NONE DIAGNOSTIC ASSISTANT/Reproductive: NONE History of MRSA: No History of VRE: No History of CDIFF: No Tetanus Vaccine: 11/01/15 Surgical History Surgical History: hysterectomy, spinal surgery Past Family/Social History Family History Relations & Conditions if any FATHER (Colon Cancer, ). MOTHER (RA, ). Relation not specified for: *No pertinent family history Psychosocial History Services at Home: Nursing Primary Language: Cape Verdean Smoking Status: Never Smoked ETOH Use: denies use Illicit Drug Use: denies illicit drug use Living Will? yes Power of Litigator/HCP? no Functional Ability ADLs Independent: dressing, eating, toileting, bathing. Ambulation: independent (has walker does not use it) IADLs Independent: shopping, housework, finances, food prep, telephone. Needs Assist: transportation, medication admin. Review of Systems Review of Systems Constitutional: Reports: see HPI. Cardiovascular: Reports: see HPI. Denies: chest pain, edema, orthopena, palpitations, peripheral edema, syncope. Respiratory: Reports: see HPI, short of breath, sputum production. Denies: cough, orthopnea, stridor, wheezing. GI: Reports: see HPI. Genitourinary: Reports: no symptoms. Musculoskeletal: Reports: no symptoms. Skin: Reports: no symptoms. Neurological/Psychological: Reports: no symptoms. Hematologic/Endocrine: Reports: no symptoms. All Other Systems: Reviewed and Negative Exam & Diagnostic Data Last 24 Hrs of Vital Signs/I&O Vital Signs Date Time Temp Pulse Resp B/P B/P Pulse O2 O2 Flow FiO2 Mean Ox Delivery Rate 03/15 1142 97.9 82 22 128/60 96 Nasal 2.0L Cannula 03/15 0847 90 Room Air 03/15 0836 97.2 80 22 150/80 92 Room Air Intake & Output 03/15 1600 / 0800 / 0000 Intake Total 300 Output Total 650 Balance -350 Intake, Oral 300 Output, Urine 650 Patient 102 lb Weight Physical Exam General Appearance Alert, Oriented X3, Cooperative, No Acute Distress Skin No Rashes, No Breakdown, No Significant Lesion Skin Temp/Moisture Exam: Cool/Dry Sepsis Skin Exam (color): Normal for Ethnicity HEENT PERRLA, Mucous Membr. moist/pink Neck Supple, No JVD, +2 Carotid Pulse wo Bruit Lymphatic Axillary nl, Cervical nl Cardiovascular Normal S1, Normal S2, lound (4 out of 6) systolic murmur at Apax of the hear radiating to axilla Lungs Clear to Auscultation, decreased air movement Abdomen Soft, No Tenderness Neurological Normal Speech Extremities No Edema, severe kyphoscoliosis Vascular Normal Pulses, Pulses Symmetrical Diagnostic Data CXR Results There also appears to be some new airspace disease at the right base compared to most recent study with findings consistent of pulmonary edema. No pneumothorax is evident. No significant pleural effusion is appreciated. Assessment/Plan Assessment: 86 years old was admitted for increased shortness of breath most possibly secondary to non-compliance with her nebulizer treatment and allergy, however, considering the likelihhood of ADHF its prudent to consider ADHF in the background. Pertinent data: NSRR, Low voltage EKG. NO Niles deviation, No acute ST T wave change CBC: microcytic anemia Troponin <0.01, <0.01 ProBNP: 9850 CXR: study consistent with pulmonary vascular congestion. There also appears to be some new airspace disease at the right base compared to most recent study with findings consistent of pulmonary edema. Assessment Patient has not been compliant with her nebulizer/INH treatment for the past ten day that could have certaily lead to her increasing shortness of breath. Due to her severe kyphoscoliosis patient likely also has elements of restrictive lungs disease and alveolar loss due to atelectasis that would certaily contributes to her shortness of breath, which is mainly exertional. In addition to pulmonary conditions, patient is not an active person. She is physically deconditioned that would be another contributory factor to her shortness of breath. Cardiac martinez patient Hx of HFpEF. Findings that increase the likelihood of ADHF in her are Hx of heart failure, pulmonary congestion on CXR. Findings that decrease the likelihood for ADHF are cardiomegaly in CXR, euvolumic state, no S3 S4, weight loss of 3lb since three days ago and the fact that her shortness of breat mainly exertional, and she does not have orthopnea/ nocturnal dyspnea. Plan * Admit to Tele * TRC /NB * Spiriva 2.5 mcg 1 puff daily * Symbicort 160/4.5 2 puff BID * Albuterol INH 3 ml Q4h as needed * O2 NC keep O2 sat around 94% Hx of HFpEF w/ ADHF * Daily weight * Lasix 20 mg PO * heart healthy diet * Cardiology consult * restrict I/O * CHECK DAILY BEP * Watch off Abx ; if spiked fever send sputum Cx physical Deconditioning * obtain PT consult Hx of COPD/?? restrictive lung disease and also needs modification of her INH as she is not able to use symbicort and Spiriva (severe arthritis) * Obtain pulm consult if attending of record approved Chronic stable conditions Hypothyroidism- stable. continue her meds Constipation- Senna and docusate Insomnia- Trazodone and melatonin at bedtime as needed Microcytic anemia- Feso4 325 po at bedtime Pain pathway- Mild /moderate /severe pain pathway [id number] As Ranked By This Provider Problem List: 1. GERD (gastroesophageal reflux disease) 2. DNR (do not resuscitate) 3. DNI (do not intubate) 4. Anemia 5. Anxiety 6. Hypothyroidism 7. COPD (chronic obstructive pulmonary disease) Core Measures/Miscellaneous Acute Coronary Syndrome ACS Diagnosis: No Cerebrovascular Accident CVA/TIA Diagnosis: No Congestive Heart Failure CHF Diagnosis: Yes Last Known EF %: 65 KEYUR/ARB for EF <40%: No Venous Thromboembolism VTE Risk Factors: Acute medical illness, Age > 40, CHF or Resp failure, No Risk Factors No [facility] VTE prophylaxis d/t: No contraindications No VTE Pharm Prophylaxis d/t: No contraindications VTE Diagnosis: No VTE Type: NONE VTE Confirmed by (Test): NONE Severe Sepsis Severe Sepsis Present: No Septic Shock Septic Shock Present: No Miscellaneous Documentation Attending Case Discussed With: CHRISTIAON GARDUNO MD Primary Care Physician: MARTINA ABREU MD Patient sees these Specialists track greaser Level of Patient Care: General Medicine Consults Needed: Consulting Specialty: Cardiology (car) Resident Review Statement Resident Statement: examined this patient, discussed with family, reviewed EMR data (avail), reviewed images CHRISTIANO AGRDUNO MD 03/15/17 1442: General Information and HPI Allergies/Medications Allergies: Coded Allergies: Iodinated Contrast- Oral and IV Dye (Iodinated Contrast Media - IV Dye) (IVP DYE HIVES 03/12/16) Home Med list Albuterol Sulfate (Proair Hfa) 8.5 GM HFA.AER.AD 2 PUF INH Q4H PRN SOB/WHEEZE (Reported) Albuterol Sulfate 0.63 MG/3 ML VIAL.NEB 1 Vial INH/SUSAN 4 TIMES/DAY PRN SHORTNESS OF BREATH / WHEEZING Cyanocobalamin (Vitamin B-12) 1,000 MCG TABLET 1 TAB PO DAILY VITAMIN SUPPORT (Reported) Docusate Sodium (Colace) 100 MG CAPSULE 1 CAP PO EVERY OTHER DAY BOWEL REGIMEN (Reported) Escitalopram Oxalate 20 MG TABLET 1 TAB PO DAILY depression (Reported) Ferrous Sulfate 325 MG TABLET 1 TAB PO QHS SUPPLEMENT (Reported) Fluticasone/Vilanterol (Breo Ellipta 100-25 Mcg INH) 100 MCG-25 MCG/DOSE BLST.W.DEV 1 INHA PO DAILY COPD Furosemide 20 MG TABLET 1 TAB PO EOD DIURETIC Guaifenesin (Adult Tussin Chest Congestion) (Unknown Strength) LIQUID (Unknown Dose) PO AD COUGH (Reported) Levothyroxine Sodium 100 MCG TABLET 1 TAB PO DAILY THYROID (Reported) Loratadine/Pseudoephedrine (Claritin-D 12 Hour Tablet) 5 MG-120 MG TAB.ER.12H 1 TAB PO QAM PRN PRN ALLERGIES (Reported) Melatonin 3 MG TABLET 1 TAB PO QPM PRN INSOMNIA (Reported) Omeprazole 40 MG CAPSULE.DR 1 TAB PO DAILY ACID (Reported) Potassium Chloride 20 MEQ TAB.ER.PRT 1 TAB PO DAILY PRN FOR POTASSIUM REPLENISHMENT (Reported) Sennosides (Senna) 8.6 MG TABLET 1 TAB PO HS PRN PRN CONSTIPATION (Reported) Tiotropium [place] (Spiriva Respimat) 4 GM MIST.INHAL 1 PUFF INH DAILY COPD ( Reported) Trazodone HCl 50 MG TABLET 0.5 TAB PO TID PRN ANXIETY (Reported) Attending MD Review Statement Attending Statement Attending MD Statement: examined this patient, discuss w/resident/PA/COMPUTED TOMOGRAPHY TECHNICIAN, agreed w/resident/PA/COMPUTED TOMOGRAPHY TECHNICIAN, reviewed EMR data (avail), discussed with nursing, discussed with case mgmt, reviewed images, amended to note Attending Assessment/Plan: 86-year-old female with past medical history significant for hypertension, pulmonary hypertension, mitral regurg, chronic diastolic CHF, COPD not home oxygen dependent, anxiety, depression, hypothyroidism who was sent in from [facility] secondary to feeling short of breath. Patient claims that overall she's not feeling well for a week. She's feeling more thigh and has this mucus that comes in her mouth and she's not able to clear that up. Last night she was feeling more short of breath all of a sudden. She denies any weight gain, denies any sore throat. She has a cough with clear sputum. She denies any fevers or chills. She denies any nausea or vomiting. She used to be on Lasix about a month ago for lower externally swelling which has been stopped because it was not needed according to the patient. She denies any orthopnea or PND. Vital Signs Date Time Temp Pulse Resp B/P B/P Pulse O2 O2 Flow FiO2 Mean Ox Delivery Rate 03/15 1438 Nasal 2.0L Cannula 03/15 1358 97.6 74 18 122/68 96 Nasal 2.0L Cannula 03/15 1238 98.9 91 15 112/67 99 Nasal 2.0L Cannula 03/15 1142 97.9 82 22 128/60 96 Nasal 2.0L Cannula 03/15 0847 90 Room Air 03/15 0836 97.2 80 22 150/80 92 Room Air on exam; aox3, nad. cv; s1,s2, rrr, + systolic murmur. resp; clear abd; soft, nt, bs+ ext; no edema. Laboratory Tests 03/15 03/15 03/15 1240 0954 0916 Chemistry Magnesium Cancelled Troponin I (< 0.11 ng/ml) < 0.01 Urines Urine Color (YEL,AMB,STR) YEL Urine Clarity (CLEAR) CLEAR Urine pH (5.0 - 8.0) 7.5 Ur Specific [place] (1.001 - 1.035) 1.010 Urine Protein (NEG,<30 MG/DL) NEG Urine Ketones (NEG) NEG Urine Nitrite (NEG) NEG Urine Bilirubin (NEG) NEG Urine Urobilinogen (0.1 - 1.0 EU/dl) 0.2 Ur Leukocyte Esterase (NEG) NEG Ur Microscopic EXAM NOT REQUIRED Urine Hemoglobin (NEG) NEG Urine Glucose (N MG/DL) NEG 03/15 03/15 0902 0851 Chemistry Sodium (137 - 145 mmol/L) 137 Potassium (3.5 - 5.1 mmol/L) 3.8 Chloride (98 - 107 mmol/L) 99 Carbon Dioxide (22 - 30 mmol/L) 31 H Anion Gap (5 - 16) 7 BUN (7 - 17 mg/dL) 10 Creatinine (0.5 - 1.0 mg/dL) 0.9 Estimated GFR (>60 ml/min) 60 BUN/Creatinine Ratio (7 - 25 %) 11.1 Glucose (65 - 99 mg/dL) 81 Calcium (8.4 - 10.2 mg/dL) 8.9 Magnesium (1.6 - 2.3 mg/dL) 1.6 Total Bilirubin (0.2 - 1.3 mg/dL) 0.4 AST (14 - 36 U/L) 11 L ALT (9 - 52 U/L) 17 Alkaline Phosphatase (<127 U/L) 73 Troponin I (< 0.11 ng/ml) Cancelled 0.01 [id number] Pept (<125 pg/mL) Cancelled 9850 H Total Protein (6.3 - 8.2 g/dL) 6.4 Albumin (3.5 - 5.0 g/dL) 3.2 L Globulin (1.9 - 4.2 gm/dL) 3.2 Albumin/Globulin Ratio (1.1 - 2.2 %) 1.0 L Coagulation D-Dimer High Sensitivty (0 - 243 ng/ml) 390 H Hematology CBC w Diff NO MAN DIFF REQ WBC (4.8 - 10.8 /CUMM) 10.6 RBC (4.20 - 5.40 /CUMM) 4.05 L Hgb (12.0 - 16.0 G/DL) 10.8 L Hct (37 - 47 %) 33.3 L MCV (81.0 - 99.0 FL) 82.1 MCH (27.0 - 31.0 PG) 26.7 L RDW (11.5 - 14.5 %) 15.0 H Plt Count (130 - 400 /CUMM) 379 MPV (7.4 - 10.4 FL) 6.1 L Gran % (42.2 - 75.2 %) 80.4 H Lymphocytes % (20.5 - 51.1 %) 11.5 L Monocytes % (1.7 - 9.3 %) 6.5 Eosinophils % (0 - 5 %) 1.2 Basophils % (0.0 - 2.0 %) 0.4 Absolute Granulocytes (1.4 - 6.5 /CUMM) 8.5 H Absolute Lymphocytes (1.2 - 3.4 /CUMM) 1.2 Absolute Monocytes (0.10 - 0.60 /CUMM) 0.7 H Absolute Eosinophils (0.0 - 0.7 /CUMM) 0.1 Absolute Basophils (0.0 - 0.2 /CUMM) 0 PUBS MCHC (33.0 - 37.0 G/DL) 32.5 L EKG>> Sinus rythm. CXR: IMPRESSION: Chronic left lower lobe disease. Cardiomegaly with pulmonary edema. A/P; 86-year-old female with past medical history significant for hypertension, pulmonary hypertension, mitral regurg, chronic diastolic CHF, COPD not home oxygen dependent, anxiety, depression, hypothyroidism who admitted with shortness of breath. Likely combination of mild fluid overload with high proBNP as well as likely mild COPD exacerbation as patient was not very compliant with her medications over the last week especially her inhalers as she reports. Patient is admitted to telemetry. Troponins will be trended. She had a recent echo, no need to repeat. Please get cardiology consult. She received IV steroids, IV Lasix in the emergency room. Please put the patient on strict intake and output, daily weights. Start the patient on a very low-dose of Lasix by mouth starting tomorrow. Monitor creatinine. Continue her TRC nebs as well as inhalers. Please start her on antihistamine. Continue home medications. DVT prophylaxis: Heparin subcutaneous. DNR/I.
--- NOTE | 2017-03-15 11:02 | NUR ---
PT. PROVIDED MUFFIN AND COFFEE
--- NOTE | 2017-03-15 11:35 | NUR ---
PT ASSIGNED ROOM 176 BED 1.
--- NOTE | 2017-03-15 12:27 | NUR ---
REPORT TO SASKIA ON TELE, PT ASSISTED ON AND OFF COMMODE, PLACED ON ELECTRONIC PUBLISHING SPECIALIST FOR TRANSPORT, AWAITING DISTRIBUTION
--- NOTE | 2017-03-15 12:44 | NUR ---
REPEAT EKG PERFORMED PER STAT ORDERS, HOUSE STAFF PAGED TROP ALSO DRAWN
[2017-03-15 13:58] VITALS: BP 122/68
--- NOTE | 2017-03-15 14:49 | Admission Certification ---
Admission Certification Certification Statement - As attending physician, I certify that at the time of - admission, based on clinical presentation, severity of - symptoms, need for further diagnostic testing and - therapeutic interventions, and risk of adverse outcomes - without in-hospital treatment, in my clinical assessment, - this patient requires an acute hospital stay for a minimum - of two nights or longer. I have also considered psychsocial - factors such as support system, advanced age, financial - issues, cognitive issues, and failed out-patient treatments, - past re-admission history, safety of patient, and lack of - compliance as applicable. Specific rationale supporting this admission is: Patient admitted with the shortness of breath some fluid overload, needs cardiology evaluation as well as diuresis.
[2017-03-16 00:46] VITALS: BP 118/60
[2017-03-16 08:00] VITALS: BP 112/60
--- NOTE | 2017-03-16 08:11 | PN- Housestaff ---
DEANDRE CABAN,TRINY 03/16/17 0811: Subjective Follow-up For: ADHF Subjective: Patient is seen and examined at bedside. She reports that she feels much better and denies any shortness of breath, chest pain, palpitation, fever, chills, abdominal pain or dysuria. No acute overnight event reported by nursing staff Review of Systems Constitutional: Reports: no symptoms. Objective Last 24 Hrs of Vital Signs/I&O Vital Signs Date Time Temp Pulse Resp B/P B/P Pulse O2 O2 Flow FiO2 Mean Ox Delivery Rate 03/16 0900 92 Room Air Room Air 03/16 0800 97.8 80 16 112/60 92 Room Air / 0046 97.9 77 18 118/60 97 Nasal Cannula 03/16 0000 Nasal 2.0L Cannula 03/15 1925 97 Nasal 2.0L Cannula 03/15 1600 Nasal 2.0L Cannula 03/15 1454 94 Nasal 2.0L Cannula 03/15 1438 Nasal 2.0L Cannula / 1358 97.6 74 18 122/68 96 Nasal 2.0L Cannula 03/15 1238 98.9 91 15 112/67 99 Nasal 2.0L Cannula 03/15 1142 97.9 82 22 128/60 96 Nasal 2.0L Cannula Intake & Output / 1600 / 0800 06/05 0000 Intake Total 300 200 Output Total 450 300 Balance -150 -100 Intake, Oral 300 200 Output, Urine 450 300 Physical Exam General Appearance: Alert, Oriented X3, Cooperative Cardiovascular: Regular Rate, Normal S1, Normal S2, systolic murmur 2/6 Lungs: Clear to Auscultation, Normal Air Movement Abdomen: Normal Bowel Sounds, No Tenderness, No Hepatospenomegaly, No Masses Neurological: Normal Speech Extremities: No Clubbing, No Cyanosis, No Edema, Normal Pulses Assessment/Plan Assessment: This is an 86 years old w/ HFpEF w/ EF of 60-65%, hypothyroidism, macular degeneration,arthirits depression and anxiety, COPD not on home oxygen , and Pernicious anemi presents with complaints of generalized weakness and dyspnea worsened by exertion. Denied any cp/palptiation, lower extremity swelling. Unfortunately, due to her significant rheumatoid arthritis on her hands she is not able to be compliant with breathing medication as they require moderate finger strength to expel the medicine. At the ED, patient's was noted basilar crackles and chest x-ray was suggestive of cardiomegaly and pulmonary edema, her proBNP was also noted to be elevated. Patient was started on IV Lasix 20 mg and admitted to telemetry for acute decompensated CHF. Impression and plan #Acute decompensated heart failure Clinical findings of crackles, with radiological findings of magnesium pulmonary edema, and an elevated proBNP in the setting of dyspnea is suggestive of acute decompensated CHF. Patient responded well to 20 mg IV Lasix given yesterday with symptomatic relief in shortness of breath. Per cardiology recommendation we'll increase Lasix to 20 mg every 12h and continue to have strict monitoring of ins and outs. #Hypokalemia Secondary to Lasix use. Will replenish appropriately to keep levels above 4. #History of COPD Currently patient does not have any clinical signs of an acute exacerbation as a respiratory exam showed normal airway entry with clear sounds on auscultation and no noted wheezing. No need for steroids at this time. Regarding patient's noncompliance with her respiratory medication, she pointed out that I deformed fingers from her arthritis make it extremely difficult for her to press on the MDI inhalers. During inpatient stay will continue TRC nebs, patient saturating well on room air. We'll plan up on discharge for patient to be switched to albuterol nebulizers and Breo inhaler which both of these 2 medications do not require any significant arm or finger strength to use. #History of hypothyroidism TSH within normal levels, patient does not present any clinical signs of hypo-or hyperthyroid. We'll continue home dose of levothyroxine 100 g daily. #Hyponatremia Mild hyponatremia. Difficult to discern patient's volume status, or crackles suggests some hypovolemia but she does not have any lower extremity edema. She did diurese about 600 meals status post 20 mg IV Lasix however BUN and creatinine does not suggest any dehydration. Urine sodium not diagnostic due to the active use of furosemide. Will trend BEP tomorrow morning. Problem List: 1. CHF exacerbation Pain Ratin Pain Location: none Pain Goal: Remain pain free Pain Plan: pain pathway Tomorrow's Labs & Rationales: BEP-ELECTROLYTE IMBALANCE ON LASIX THERAPY Consulting Request: Consulting Specialty: Cardiology (car) RONDA RODRIGUEZ MD 03/16/17 1440: Attending MD Review Statement Attending Statement Attending MD Statement: examined this patient, discuss w/resident/PA/AIR PLANT ENGINEER, agreed w/resident/PA/AIR PLANT ENGINEER, reviewed EMR data (avail), discussed with nursing, discussed with case mgmt, amended to note Attending Assessment/Plan: Patient seen and examined. Resting comfortably not in any acute distress. No issues overnight. No events overnight on telemetry. She reports feeling better. Denies chest pain. Denies shortness of breath. She is maintaining saturation on room air. On auscultation she has mild crepitus in the bases. No other added breath sounds. She has no jugular venous distention or peripheral edema. Patient reports that she has been having difficulty using her Symbicort inhaler at home due to severe arthritis. Case discussed with the cardiology service as symptoms appear to be can be nation of mild COPD exacerbation and mildly decompensated CHF. Recommendations: -Lasix 20 mg IV now. Repeat Lasix 20 mg IV this evening. -Transition to by mouth Lasix tomorrow 20 mg orally daily. -If she remains asymptomatic and blood pressure tolerates she can be discharged home tomorrow. -Would recommend changing her Symbicort to Breo on discharge as this medication is much easier to use.
--- NOTE | 2017-03-16 09:54 | Cons- Cardiology ---
General Information and HPI Consulting Request Date of Consult: 03/16/17 Requested By: RONDA RODRIGUEZ M.D Reason for Consult: Shortness of breath, congestive heart failure History of Present Illness: The patient is an 86-year-old female with history of COPD, hypertension, and chronic diastolic heart failure. She is followed in the office by Dr. Flores. She was recently admitted in November for sepsis of urologic origin. She presents with complaint of worsening shortness of breath over the past few days. The shortness of breath is increased with activity. She has not recently been using nebulizers. She has not recently been on Lasix. No chest pain. No palpitations. No cough. No edema. No nausea or vomiting. Allergies/Medications Allergies: Coded Allergies: Iodinated Contrast Media - Oral and (Iodinated Contrast Media - IV Dye) (IVP DYE HIVES 03/12/16) Home Med List: Albuterol Sulfate (Proair Hfa) 8.5 GM HFA.AER.AD 2 PUF INH Q4H PRN SOB/WHEEZE (Reported) Albuterol Sulfate 2.5 MG/3 ML VIAL.NEB 1 Vial INH/SUSAN Q2H PRN SOB (Reported) Budesonide/Formoterol Fumarate (Symbicort 160-4.5 Mcg Inhaler) 10.2 GM HFA.AER.AD 2 PUF INH BID COPD (Reported) Cholecalciferol (Vitamin D3) 1,000 UNIT TABLET 1 TAB PO DAILY SUPPLEMENT ( Reported) Cyanocobalamin (Vitamin B-12) 1,000 MCG TABLET 1 TAB PO DAILY VITAMIN SUPPORT (Reported) Docusate Sodium (Colace) 100 MG CAPSULE 1 CAP PO EVERY OTHER DAY BOWEL REGIMEN (Reported) Ferrous Sulfate 325 MG TABLET 1 TAB PO QHS SUPPLEMENT (Reported) Furosemide (Lasix) 20 MG TABLET 1 TAB PO PRN PRN FLUID (Reported) Guaifenesin (Adult Tussin Chest Congestion) (Unknown Strength) LIQUID (Unknown Dose) PO AD COUGH (Reported) Levothyroxine Sodium 100 MCG TABLET 1 TAB PO DAILY THYROID (Reported) Loratadine/Pseudoephedrine (Claritin-D 12 Hour Tablet) 5 MG-120 MG TAB.ER.12H 1 TAB PO QAM PRN PRN ALLERGIES (Reported) Melatonin 3 MG TABLET 1 TAB PO QPM PRN INSOMNIA (Reported) Sennosides (Senna) 8.6 MG TABLET 1 TAB PO HS PRN PRN CONSTIPATION (Reported) Tiotropium [place] (Spiriva Respimat) 4 GM MIST.INHAL 1 PUFF INH DAILY COPD ( Reported) Trazodone HCl 50 MG TABLET 0.5 TAB PO QHS PRN ANXIETY (Reported) Current Medications: Current Medications Sig/Keesha Start time Last Medication Dose Route Stop Time Status Admin Acetaminophen 650 MG Q6P PRN 03/15 1215 AC PO Acetaminophen 1,000 MG Q6 03/15 1208 DC IV Albuterol Sulfate 3 ML BID 03/15 2200 AC 03/16 INH 0843 Albuterol Sulfate 3 ML Q4 HRS NEEDED PRN 03/15 1200 AC INH Budesonide/ 2 PUF BID 03/15 1154 AC 03/15 Formoterol Fumarate INH 2011 Cholecalciferol 1,000 IU DAILY 03/15 1155 AC 03/15 PO 1621 Cyanocobalamin 1,000 MCG DAILY 03/15 1156 AC 03/15 PO 1621 Ferrous Sulfate 325 MG 2200 03/15 2200 AC 03/15 PO 2011 Furosemide 20 MG DAILY 03/15 1416 AC PO Furosemide 20 MG ONCE ONE 03/15 1015 DC 03/15 IV 03/15 1016 1021 Furosemide 0 .STK-MED ONE 03/15 1011 DC IV Guaifenesin 10 ML Q4P PRN 03/15 1200 AC PO Heparin Sodium 5,000 UNIT Q8 03/15 1400 AC 03/16 (Porcine) SC 0607 Levothyroxine Sodium 0.1 MG DAILY AC 03/15 1158 AC 03/16 PO 0554 Loratadine 10 MG DAILY PRN 03/15 1200 AC 03/15 PO 2011 Melatonin 3 MG QPM PRN 03/15 1200 AC 03/15 PO 2011 Ondansetron HCl 4 MG ONCE ONE 03/16 0615 DC IV 03/16 0616 Potassium Chloride 40 MEQ ONCE ONE 03/16 0915 DC PO 03/16 0916 Potassium Chloride 40 MEQ ONCE ONE 03/16 0830 DC PO 03/16 0831 Senna/Docusate Sodium 1 TAB AT BEDTIME PRN 03/15 1215 AC PO Senna/Docusate Sodium 2 TAB DAILY PRN 03/15 1200 DC PO Tiotropium [place] 1 PUF DAILY 03/15 1200 AC 03/15 INH 1621 Trazodone HCl 25 MG AT BEDTIME 03/15 2200 AC 03/15 PO 2010 Review of Systems Review of Systems: No rash. No tremor. No melena. All other systems were reviewed, and were noted to be negative. Past History Travel History Traveled to [place] past 21 day No Medical History Neurological: NONE EENT: macular degeneration Cardiovascular: hypertension, mitral regurgitation (SEVERE) Respiratory: COPD, pulmonary hypertension Gastrointestinal: NONE Hepatic: NONE Renal: NONE Musculoskeletal: disk herniation, spinal stenosis Psychiatric: anxiety, depression Endocrine: hypothyroidism Blood Disorders: PERNICIOUS ANEMIA Cancer(s): NONE KOSHER SEALER/Reproductive: NONE Surgical History Surgical History: hysterectomy, spinal surgery Family History Relations & Conditions If Any: FATHER (Colon Cancer, ). MOTHER (RA, ). Relation not specified for: *No pertinent family history Psychosocial History Services at Home: Nursing Primary Language: Mohawk Smoking Status: Never Smoked ETOH Use: denies use Illicit Drug Use: denies illicit drug use Living Will? yes Power of Parcel Wrapper/HCP? no Functional Ability ADLs Independent: dressing, eating, toileting, bathing. Ambulation: independent (has walker does not use it) IADLs Independent: shopping, housework, finances, food prep, telephone. Needs Assist: transportation, medication admin. Exam & Diagnostic Data Vital Signs and I&O Vital Signs Date Time Temp Pulse Resp B/P B/P Pulse O2 O2 Flow FiO2 Mean Ox Delivery Rate 03/16 0900 92 Room Air Room Air 03/16 0800 97.8 80 16 112/60 92 Room Air 03/16 0046 97.9 77 18 118/60 97 Nasal Cannula 03/16 0000 Nasal 2.0L Cannula 03/15 1925 97 Nasal 2.0L Cannula 03/15 1600 Nasal 2.0L Cannula 03/15 1454 94 Nasal 2.0L Cannula 03/15 1438 Nasal 2.0L Cannula 03/15 1358 97.6 74 18 122/68 96 Nasal 2.0L Cannula 03/15 1238 98.9 91 15 112/67 99 Nasal 2.0L Cannula 03/15 1142 97.9 82 22 128/60 96 Nasal 2.0L Cannula Intake & Output 03/16 1600 06/05 0800 06/05 0000 06/04 1600 / 0800 06/04 0000 Intake Total 300 200 300 Output Total 450 300 650 Balance -150 -100 -350 Intake, Oral 300 200 300 Output, Urine 450 300 650 Patient 102 lb Weight Physical Exam: Gen: The patient is in no acute distress HEENT: Normal nose, ears, and oropharynx. Pupils equal bilaterally. Conjunctiva normal. Neck: Supple with no JVD, no masses, and no thyromegaly Lungs: Clear to auscultation with normal respiratory effort Heart: RRR, S1, S2, 2/6 systolic murmur, 1+ peripheral edema, 2+ pulses in the lower extremities bilaterally Abdomen: Soft, nontender, no masses. No hepatomegaly. No splenomegaly Extremities: No clubbing or cyanosis. Normal muscle strength in the upper and lower extremities Skin: Normal skin turgor with no skin ulcers or lesions noted. Neuro: Cranial nerves intact. Sensation intact Psych: Alert and oriented 3 with appropriate affect Labs/Contreras Results: Laboratory Tests 03/16 03/15 03/15 03/15 0615 1530 1240 0954 Chemistry Sodium (137 - 145 mmol/L) 133 L Potassium (3.5 - 5.1 mmol/L) 3.4 L Chloride (98 - 107 mmol/L) 95 L Carbon Dioxide (22 - 30 mmol/L) 32 H Anion Gap (5 - 16) 7 BUN (7 - 17 mg/dL) 13 Creatinine (0.5 - 1.0 mg/dL) 0.8 Estimated GFR (>60 ml/min) > 60 BUN/Creatinine Ratio (7 - 25 %) 16.3 Troponin I (< 0.11 ng/ml) 0.01 < 0.01 TSH (0.270 - 4.200 uIU/mL) 0.904 Urines Urine Color (YEL,AMB,STR) YEL Urine Clarity (CLEAR) CLEAR Urine pH (5.0 - 8.0) 7.5 Ur Specific [place] (1.001 - 1.035) 1.010 Urine Protein (NEG,<30 MG/DL) NEG Urine Ketones (NEG) NEG Urine Nitrite (NEG) NEG Urine Bilirubin (NEG) NEG Urine Urobilinogen (0.1 - 1.0 EU/dl) 0.2 Ur Leukocyte Esterase (NEG) NEG Ur Microscopic EXAM NOT REQUIRED Urine Hemoglobin (NEG) NEG Urine Glucose (N MG/DL) NEG 03/15 03/15 03/15 0916 0902 0851 Chemistry Sodium (137 - 145 mmol/L) 137 Potassium (3.5 - 5.1 mmol/L) 3.8 Chloride (98 - 107 mmol/L) 99 Carbon Dioxide (22 - 30 mmol/L) 31 H Anion Gap (5 - 16) 7 BUN (7 - 17 mg/dL) 10 Creatinine (0.5 - 1.0 mg/dL) 0.9 Estimated GFR (>60 ml/min) 60 BUN/Creatinine Ratio (7 - 25 %) 11.1 Glucose (65 - 99 mg/dL) 81 Calcium (8.4 - 10.2 mg/dL) 8.9 Magnesium (1.6 - 2.3 mg/dL) Cancelled 1.6 Total Bilirubin (0.2 - 1.3 mg/dL) 0.4 AST (14 - 36 U/L) 11 L ALT (9 - 52 U/L) 17 Alkaline Phosphatase (<127 U/L) 73 Troponin I (< 0.11 ng/ml) Cancelled 0.01 [id number] Pept (<125 pg/mL) Cancelled 9850 H Total Protein (6.3 - 8.2 g/dL) 6.4 Albumin (3.5 - 5.0 g/dL) 3.2 L Globulin (1.9 - 4.2 gm/dL) 3.2 Albumin/Globulin Ratio (1.1 - 2.2 %) 1.0 L Coagulation D-Dimer High Sensitivty (0 - 243 ng/ml) 390 H Hematology CBC w Diff NO MAN DIFF REQ WBC (4.8 - 10.8 /CUMM) 10.6 RBC (4.20 - 5.40 /CUMM) 4.05 L Hgb (12.0 - 16.0 G/DL) 10.8 L Hct (37 - 47 %) 33.3 L MCV (81.0 - 99.0 FL) 82.1 MCH (27.0 - 31.0 PG) 26.7 L RDW (11.5 - 14.5 %) 15.0 H Plt Count (130 - 400 /CUMM) 379 MPV (7.4 - 10.4 FL) 6.1 L Gran % (42.2 - 75.2 %) 80.4 H Lymphocytes % (20.5 - 51.1 %) 11.5 L Monocytes % (1.7 - 9.3 %) 6.5 Eosinophils % (0 - 5 %) 1.2 Basophils % (0.0 - 2.0 %) 0.4 Absolute Granulocytes (1.4 - 6.5 /CUMM) 8.5 H Absolute Lymphocytes (1.2 - 3.4 /CUMM) 1.2 Absolute Monocytes (0.10 - 0.60 /CUMM) 0.7 H Absolute Eosinophils (0.0 - 0.7 /CUMM) 0.1 Absolute Basophils (0.0 - 0.2 /CUMM) 0 PUBS MCHC (33.0 - 37.0 G/DL) 32.5 L Diagnostic Data EKG Results EKG tracing is independently reviewed, and reveals normal sinus rhythm at 79 with intraventricular conduction delay CXR Results Chest x-ray: Chronic left lower lobe disease. Cardiomegaly with pulmonary edema. Other Results Echocardiogram: 1. Aortic sclerosis is present with mild aortic insufficiency and mild dilatation of the ascending aorta. 2. Moderate thickening and calcification of the mitral leaflets is present with anular calcification and eccentric mitral insufficiency which is at least moderate in severity with moderate left atrial enlargement. There appears to be mild systolic prolapse of the anterior mitral leaflet present. 3. There is no significant pericardial fluid present . 4. The left ventricular chamber size is normal with mild to moderate concentric hypertrophy and a normal ejection fraction with no obvious resting wall motion abnormalities. 5. Mild tricuspid insufficiency is present with right atrial enlargement and pulmonary hypertension with an estimated RV systolic pressure of 50 mmHg. Assessment/Plan Assessment/Plan The patient is an 86-year-old female with history of COPD, hypertension, and chronic diastolic heart failure who is admitted with recent worsening shortness of breath. Chest x-rays consistent with congestive heart failure, and she is noted to have an elevated proBNP above her baseline. She received a dose of IV Lasix in the emergency department with evidence of improvement in clinical status. He is noted to be hypokalemic after the Lasix dose. Recommendations: * Supplement potassium to greater than 4.0 * Lasix 20 mg IV every 12 hours * Follow input and output with daily weights * Check basic metabolic profile daily * She is showing significant clinical improvement, and may be ready for discharge tomorrow if she continues to improve. Consult Acknowledgment - Thank you for your consult request.
[2017-03-16] MEDS ORDERED: BREO ELLIPTA 11 EACH PO (15:11)
--- NOTE | 2017-03-16 15:15 | Patient Discharge Instructions ---
Discharge Instructions General Discharge Information You were seen/treated for: SHORTNESS OF BREATH Special Instructions: Please follow up with your primary care within 1 week Please follow up with your acetylene cylinder packing mixer within 1 week Stop taking the Symbicort, it has been replaced by BREO. Start taking lasix every other day instead of daily. Acute Coronary Syndrome Inclusion Criteria At DC or during hospital stay patient has or had the following: ACS DIAGNOSIS No Discharge Core Measures Meds if any: Prescribed or Continued at Discharge Meds if any: NOT Prescribed or Continued at Discharge Congestive Heart Failure Inclusion Criteria At DC or during hospital stay patient has or had the following: CHF DIAGNOSIS No Discharge Core Measures Meds if any: Prescribed or Continued at Discharge Meds if any: NOT Prescribed or Continued at Discharge Cerebrovascular accident Inclusion Criteria At DC or during hospital stay patient has or had the following: CVA/TIA Diagnosis No Discharge Core Measures Meds if any: Prescribed or Continued at Discharge Meds if any: NOT Prescribed or Continued at Discharge Venous thromboembolism Inclusion Criteria VTE Diagnosis No VTE Type NONE VTE Confirmed by (Test) NONE Discharge Core Measures - Per Current guidelines, there needs to be overlap - treatment for the first 5 days of Warfarin therapy. - If discharged on Warfarin prior to 5 days of - overlap therapy, the patient will need to be - assessed for post discharge needs including - *Post discharge parental anticoagulation - *Warfarin and/or parental anticoagulation education - *Follow up date to check INR post discharge At least 5 days overlap therapy as Inpatient No Meds if any: Prescribed or Continued at Discharge Note: Overlap Therapy is Warfarin and Anticoagulant Meds if any: NOT Prescribed or Continued at Discharge
[2017-03-16] MEDS ORDERED: ESCITALOPRAM OX20 MG PO (15:28)
[2017-03-16 15:30] VITALS: BP 118/64
[2017-03-16] MEDS ORDERED: OMEPRAZOLE40 M1 PO (15:30)
[2017-03-16] MEDS ORDERED: POTASSIUM CHLO20 ME2 PO (15:36)
[2017-03-16 23:04] VITALS: BP 118/62
[2017-03-16 23:05] VITALS: BP 124/78
--- NOTE | 2017-03-17 06:36 | PN- Housestaff ---
ESTELITA PFEIFFER MD 03/17/17 0636: Subjective Follow-up For: Shortness of breath Tele-Events Since Last Visit: NSR HR 76-82 Subjective: Patient seen and examined. She is seen sitting upright in her chair at bedside resting comfortably. She appears to be in no acute distress. She states that "she has to go to the bathroom" and otherwise "feels anxious/faint". She states that she is afraid to return to [facility] [employer] alone in her current state of health. She otherwise denies any new subjective compaints, is ambulating well at baseline with assitance of a walker, and is eating/drinking well with normal bathroom habits. Additionally she denies any headache, fever, chills, chest pain, palpitations, worsening shortness of breath, cough, nausea, vomiting, diarrhea. Overnight patient was reported seen to be confused by nursing staff. She was calling out frequently and would frequently ambulate with assistance around the room. This morning she is seen to be anxious, but alert and oriented to person/ place/time. Review of Systems Constitutional: Reports: see HPI. Objective Last 24 Hrs of Vital Signs/I&O Vital Signs Date Time Temp Pulse Resp B/P B/P Pulse O2 O2 Flow FiO2 Mean Ox Delivery Rate 03/16 2305 98.0 81 16 124/78 92 Room Air 06/ 1850 92 Room Air / 1530 98.0 78 16 118/64 95 Room Air 06/05 0900 92 Room Air Room Air 06/05 0800 97.8 80 16 112/60 92 Room Air Intake & Output 03/17 0800 06/06 0000 06/05 1600 Intake Total 200 480 400 Output Total 475 1100 850 Balance -275 -620 -450 Intake, Oral 200 480 400 Output, Urine 475 1100 850 Physical Exam General Appearance: Alert, Oriented X3, Cooperative, No Acute Distress Other Physical Findings: General- well developed, thin elderly woman in no acute distress HEENT- NCAT, PERRL, EOMI, anicteric sclera, moist mucous membranes CVS- 2/6 systolic murmur, RRR Resp- CTA bilaterally GI- Soft, nontender, nondistended, bowel sounds intact Neuro- Awake and alert, oriented to person/place/time, CN II - XII grossly intact Ext- normal pulses, no cyanosis/clubbing/edema Current Medications: Current Medications Sig/Keesha Start time Last Medication Dose Route Stop Time Status Admin Acetaminophen 650 MG Q6P PRN 03/15 1215 AC PO Albuterol Sulfate 3 ML BID 03/15 2200 AC 03/16 INH 1850 Albuterol Sulfate 3 ML Q4 HRS NEEDED PRN 03/15 1200 AC INH Budesonide/ 2 PUF BID 03/15 1154 AC 03/16 Formoterol Fumarate INH 2127 Cholecalciferol 1,000 IU DAILY 03/15 1155 AC 03/16 PO 1001 Cyanocobalamin 1,000 MCG DAILY 03/15 1156 AC 03/16 PO 1001 Ferrous Sulfate 325 MG 03/15 2200 AC 03/16 PO 2127 Furosemide 20 MG 7:30 AM, & 4:30 PM 03/17 0730 AC PO Furosemide 20 MG Q12 03/16 2200 CAN PO Furosemide 40 MG .STK-MED ONE 03/16 1558 DC IV 03/16 1559 Furosemide 20 MG ONCE ONE 03/16 1500 DC 03/16 IV 03/16 1501 1558 Furosemide 20 MG DAILY 03/15 1416 DC 03/16 PO 1001 Guaifenesin 10 ML Q4P PRN 03/15 1200 AC PO Heparin Sodium 5,000 UNIT Q8 03/15 1400 AC 03/17 (Porcine) SC 0648 Levothyroxine Sodium 0.1 MG DAILY AC 03/15 1158 AC 03/17 PO 0651 Loratadine 10 MG DAILY PRN 03/15 1200 AC 03/15 PO 2011 Melatonin 3 MG .STK-MED ONE 03/16 2131 DC PO 03/16 2132 Melatonin 3 MG QPM PRN 03/15 1200 AC 03/16 PO 2131 Patient Medication 1 ED .STK-MED ONE 03/16 1418 DC Teaching ED 03/16 1419 Potassium Chloride 40 MEQ ONCE ONE 03/16 0915 DC 03/16 PO 03/16 0916 1256 Potassium Chloride 40 MEQ ONCE ONE 03/16 0830 DC 03/16 PO 03/16 0831 1003 Senna/Docusate Sodium 1 TAB AT BEDTIME PRN 03/15 1215 AC PO Tiotropium [place] 1 PUF DAILY 03/15 1200 AC 03/16 INH 1002 Trazodone HCl 25 MG AT BEDTIME 03/15 2200 AC 03/16 PO 2128 Last 24 Hrs of Lab/Contreras Results Last 24 Hrs of Labs/Mics: Laboratory Tests 03/17/17 0624: Sodium Pending, Potassium Pending, Chloride Pending, Carbon Dioxide Pending, Anion Gap Pending, BUN Pending, Creatinine Pending, BUN/Creatinine Ratio Pending Assessment/Plan Assessment: Patient denies any further shortness of breath but now admits to 'feeling faint' with associated anxiety. Orthostats were positive this morning for which patient was given a small bolus of normal saline. Lasix are to be held tomorrow and patient will be considered for discharge back to assisted living. She is to take lasix every other day as an outpatient and to follow up with her grab jack worker Dr. Flores within one week. Problem List: -Acute decompensated Heart Failure with preserved ejection fraction -COPD, not on home oxygen -Hypothyroidism -Macular Degeneration -Anxiety / Depression Plan: -Continue telemetry -Anticipated discharge to home tomorrow -Orthostats -TRC -Supplemental O2 PRN, currently on room air -Symbicort discontinued, continue Breo -Hold lasix, re-evaluate on discharge -Continue Trazodone 25mg PO TID, hold for sedation -Continue Lexapro, Synthroid, Omeprazole, Spiriva -PT eval: Home PT -Pain pathway -Bowel regimen -DVT PPx -DNR/DNI Problem List: 1. CHF exacerbation Pain Ratin Pain Location: None Pain Goal: Remain pain free Pain Plan: See assessment Tomorrow's Labs & Rationales: None Consulting Request: Consulting Specialty: Cardiology (car) MICHAEL CABAN,RONDA 03/17/17 1010: Attending MD Review Statement Attending Statement Attending MD Statement: examined this patient, discuss w/resident/PA/GLASS GLAZIER, agreed w/resident/PA/GLASS GLAZIER, reviewed EMR data (avail), discussed with nursing, discussed with case mgmt, amended to note Attending Assessment/Plan: Patient seen and examined. Resting comfortably and not in any acute distress. No events overnight on telemetry. Orthostatic reported overnight she was is a be confused. However this morning she is alert and oriented 3. There was similar complaint the night prior. In questioning the patient the night prior she reports some hesitation when she was speaking return as at night. She is however alert and oriented 3. She is conversing appropriately. She has no focal deficits on examination. She is ambulating freely without assistance and has been cleared for discharge from physical therapy service. She remains symptom-free at present. She is not requiring oxygen supplementation. On examination lungs are clear bilaterally. She complained of mild dizziness overnight. Her blood pressure is currently acceptable on her current dose of Lasix. Recommendations: -Check orthostatic blood pressure in view of complaint of dizziness last night. If stable she may be discharged home today on Lasix 20 mg daily. -Her Symbicort has been changed to Breo. Which is much easier for her to use. She has also been encouraged to utilize add nebulizer rather than her albuterol inhaler. -She is to follow-up with her primary care doctor next week. Addendum: Patient had positive orthostatic blood pressure changes. She continued to complain of dizziness particularly with position changes. In view of decide discharge is being held. She did receive a dose of Lasix today. We'll administer 250 mL of fluids today and monitor patient overnight. He blood pressure is stable tomorrow as she is asymptomatic we may consider discharging her. We will reevaluate her diuretic regimen at the time of discharge. No events overnight on telemetry. Orthostatic reported overnight she was is a be confused. However this morning she is alert and oriented 3. There was similar complaint the night prior. In questioning the patient the night prior she reports some hesitation when she was speaking return as at night. She is however alert and oriented 3. She is conversing appropriately. She has no focal deficits on examination. She is ambulating freely without assistance and has been cleared for discharge from physical therapy service. She remains symptom-free at present. She is not requiring oxygen supplementation. On examination lungs are clear bilaterally. She complained of mild dizziness overnight. Her blood pressure is currently acceptable on her current dose of Lasix. Recommendations: -Check orthostatic blood pressure in view of complaint of dizziness last night. If stable she may be discharged home today on Lasix 20 mg daily. -Her Symbicort has been changed to Breo. Which is much easier for her to use. She has also been encouraged to utilize add nebulizer rather than her albuterol inhaler. -She is to follow-up with her primary care doctor next week. Addendum: Patient had positive orthostatic blood pressure changes. She continued to complain of dizziness particularly with position changes. In view of decide discharge is being held. She did receive a dose of Lasix today. We'll administer 250 mL of fluids today and monitor patient overnight. He blood pressure is stable tomorrow as she is asymptomatic we may consider discharging her. We will reevaluate her diuretic regimen at the time of discharge.
[2017-03-17 08:00] VITALS: BP 138/80
[2017-03-17] MEDS ORDERED: ALBUTEROL0.63 MG/1 INH/SOL (09:35)
[2017-03-17] MEDS ORDERED: FUROSEMIDE20 M1 PO ×2 (09:35→11:18)
[2017-03-17] MEDS ORDERED: BREO ELLIPTA 11 EACH PO (09:35)
[2017-03-17] MEDS ORDERED: FIBERCON625 M1 PO (10:32)
--- NOTE | 2017-03-17 11:23 | PN- Cardiology ---
Subjective Subjective: Feeling better. Shortness of breath has essentially resolved. She notes intermittent mild lightheadedness. No chest pain. No palpitations. No diaphoresis. No nausea or vomiting. Orthostatics were checked and she is noted to have a borderline orthostatic blood pressure drop with standing. Objective Vital Signs and I&Os Vital Signs Date Time Temp Pulse Resp B/P B/P Pulse O2 O2 Flow FiO2 Mean Ox Delivery Rate 03/17 0840 95 Room Air Room Air 03/17 0800 98.1 81 20 138/80 93 Room Air / 2305 98.0 81 16 124/78 92 Room Air / 1850 92 Room Air / 1530 98.0 78 16 118/64 95 Room Air Intake & Output 03/17 1600 03/17 0800 / 0000 / 1600 03/16 0800 06/ 0000 Intake Total 200 480 400 300 200 Output Total 475 1100 850 450 300 Balance -275 -620 -450 -150 -100 Intake, Oral 200 480 400 300 200 Output, Urine 475 1100 850 450 300 Physical Exam: Gen: The patient is in no acute distress HEENT: Normal nose, ears, and oropharynx. Pupils equal bilaterally. Conjunctiva normal. Neck: Supple with no JVD, no masses, and no thyromegaly Lungs: Clear to auscultation with normal respiratory effort Heart: RRR, S1, S2, 2/6 systolic murmur, 1+ peripheral edema, 2+ pulses in the lower extremities bilaterally Abdomen: Soft, nontender, no masses. No hepatomegaly. No splenomegaly Extremities: No clubbing or cyanosis. Normal muscle strength in the upper and lower extremities Skin: Normal skin turgor with no skin ulcers or lesions noted. Neuro: Cranial nerves intact. Sensation intact Current Medications: Current Medications Sig/Keesha Start time Last Medication Dose Route Stop Time Status Admin Acetaminophen 650 MG Q6P PRN 03/15 1215 AC 03/17 PO 0851 Albuterol Sulfate 3 ML BID 03/15 2200 AC 03/17 INH 0837 Albuterol Sulfate 3 ML Q4 HRS NEEDED PRN 03/15 1200 AC INH Budesonide/ 2 PUF BID 03/15 1154 AC 03/17 Formoterol Fumarate INH 0851 Cholecalciferol 1,000 IU DAILY 03/15 1155 AC 03/17 PO 0851 Cyanocobalamin 1,000 MCG DAILY 03/15 1156 AC 03/17 PO 0851 Escitalopram Oxalate 20 MG DAILY 03/17 1000 AC PO Ferrous Sulfate 325 MG 2200 03/15 2200 AC 03/16 PO 2127 Furosemide 20 MG DAILY 03/17 1000 AC 03/17 PO 0851 Furosemide 20 MG 7:30 AM, & 4:30 PM 03/17 0730 DC PO Furosemide 20 MG Q12 03/16 2200 CAN PO Furosemide 40 MG .STK-MED ONE 03/16 1558 DC IV 03/16 1559 Furosemide 20 MG ONCE ONE 03/16 1500 DC 03/16 IV 03/16 1501 1558 Furosemide 20 MG DAILY 03/15 1416 DC 03/16 PO 1001 Guaifenesin 10 ML Q4P PRN 03/15 1200 AC PO Heparin Sodium 5,000 UNIT Q8 03/15 1400 AC 03/17 (Porcine) SC 0648 Levothyroxine Sodium 0.1 MG DAILY AC 03/15 1158 AC 03/17 PO 0651 Loratadine 10 MG DAILY PRN 03/15 1200 AC 03/15 PO 2011 Melatonin 3 MG .STK-MED ONE 03/16 2131 DC PO 03/16 2132 Melatonin 3 MG QPM PRN 03/15 1200 AC 03/16 PO 2131 Omeprazole 40 MG DAILY AC 03/17 0907 AC PO Patient Medication 1 ED .STK-MED ONE 03/16 1418 DC Teaching ED 03/16 1419 Potassium Chloride 20 MEQ DAILY PRN 03/17 0915 AC PO Senna/Docusate Sodium 1 TAB AT BEDTIME PRN 03/15 1215 AC PO Tiotropium [place] 1 PUF DAILY 03/15 1200 AC 03/17 INH 0851 Trazodone HCl 25 MG AT BEDTIME NEED.. 03/17 0915 AC PO Trazodone HCl 25 MG AT BEDTIME 03/15 2200 AC 03/16 PO 2128 Results Last 48 Hrs of Labs/Mics: Laboratory Tests 03/17/17 0624: Anion Gap 9, Estimated GFR 60, BUN/Creatinine Ratio 14.4 03/16/17 0615: Anion Gap 7, Estimated GFR > 60, BUN/Creatinine Ratio 16.3, TSH 0.904 03/15/17 1530: Troponin I 0.01 03/15/17 1240: Troponin I < 0.01 Assessment/Plan Assessment/Plan Assessment: 1. COPD exacerbation 2. Hypertension 3. Acute on chronic diastolic heart failure, improved 3. Borderline orthostatic hypotension Plan: * The patient is clear for discharge from cardiac standpoint. * Would discharge on Lasix 40 mg by mouth every other day * Follow up with Dr. Flores in one week. Continue telemetry? No
[2017-03-17 15:30] VITALS: BP 116/70
[2017-03-18 00:01] VITALS: BP 138/62
--- NOTE | 2017-03-18 07:03 | PN- Housestaff ---
MARGARETTE CABAN,ESTELITA 03/18/17 0702: Subjective Follow-up For: Shortness of breath Subjective: Patient seen and examined. She is seen sitting upright in bed resting comfortably. She appears to be in no acute distress. She reports sleeping well last night and otherwise admits to persistent urinary frequency, which is reportedly normal for her. She denies any urinary discomfort, urgency, bloody urine, fever, or chills and admits that this does not feel like a urinary tract infection. She is hungry and is requesting to eat, and otherwise is asking when she can be discharged. She is eager to return home and feels safe to do so. She no longer feels faint or lightheaded. Otherwise she denies any headache, chest pain/discomfort, shortness of breath, nausea, vomiting, diarrhea. No overnight events reported. Review of Systems Constitutional: Reports: see HPI. Objective Last 24 Hrs of Vital Signs/I&O Vital Signs Date Time Temp Pulse Resp B/P B/P Pulse O2 O2 Flow FiO2 Mean Ox Delivery Rate 03/18 0001 98.1 81 16 138/62 93 03/17 2015 94 Room Air 03/17 1530 98.1 80 16 116/70 96 Room Air 03/17 0840 95 Room Air Room Air Intake & Output 03/18 1600 03/18 0800 03/18 0000 Intake Total 240 250 Output Total 200 450 Balance 40 -200 Intake, IV 0 0 Intake, Oral 240 250 Number 1 0 Bowel Movements Output, Urine 200 450 Physical Exam General Appearance: Alert, Oriented X3, Cooperative, No Acute Distress Other Physical Findings: General- well developed, thin elderly woman in no acute distress HEENT- NCAT, PERRL, EOMI, anicteric sclera, moist mucous membranes CVS- 2/6 systolic murmur, RRR Resp- CTA bilaterally GI- Soft, nontender, nondistended, bowel sounds intact Neuro- Awake and alert, oriented to person/place/time, CN II - XII grossly intact Ext- normal pulses, no cyanosis/clubbing/edema Current Medications: Current Medications Sig/Keesha Start time Last Medication Dose Route Stop Time Status Admin Acetaminophen 650 MG .STK-MED ONE 03/17 0836 DC PO 03/17 0837 Acetaminophen 650 MG Q6P PRN 03/15 1215 AC 03/17 PO 0851 Albuterol Sulfate 3 ML BID 03/15 2200 AC 03/17 INH 2011 Albuterol Sulfate 3 ML Q4 HRS NEEDED PRN 03/15 1200 AC INH Budesonide/ 2 PUF BID 03/15 1154 AC 03/17 Formoterol Fumarate INH 2203 Cholecalciferol 1,000 IU DAILY 03/15 1155 AC 03/17 PO 0851 Cyanocobalamin 1,000 MCG DAILY 03/15 1156 AC 03/17 PO 0851 Escitalopram Oxalate 20 MG DAILY 03/17 1000 AC 03/17 PO 1350 Ferrous Sulfate 325 MG 2200 03/15 2200 AC 03/17 PO 2203 Furosemide 20 MG DAILY 03/17 1000 DC 03/17 PO 0851 Guaifenesin 10 ML Q4P PRN 03/15 1200 AC PO Heparin Sodium 5,000 UNIT Q8 03/15 1400 AC 03/18 (Porcine) SC 0508 Levothyroxine Sodium 0.1 MG DAILY AC 03/15 1158 AC 03/18 PO 0508 Loratadine 10 MG DAILY PRN 03/15 1200 AC 03/15 PO 2011 Melatonin 3 MG QPM PRN 03/15 1200 AC 03/16 PO 2131 Omeprazole 40 MG DAILY AC 03/17 0907 AC 03/18 PO 0508 Potassium Chloride 20 MEQ DAILY PRN 03/17 0915 AC PO Senna/Docusate Sodium 1 TAB AT BEDTIME PRN 03/15 1215 AC PO Sodium Chloride 250 ML BOLUS ONE 03/17 1130 DC 03/17 IV 03/17 1229 1350 Tiotropium [place] 1 PUF DAILY 03/15 1200 AC 03/17 INH 0851 Trazodone HCl 25 MG TID PRN 03/17 1606 AC 03/17 PO 2203 Trazodone HCl 25 MG TID 03/17 1600 DC PO Trazodone HCl 25 MG AT BEDTIME NEED.. 03/17 0915 DC PO Trazodone HCl 25 MG AT BEDTIME 03/15 2200 DC 03/16 PO 2128 Last 24 Hrs of Lab/Contreras Results Last 24 Hrs of Labs/Mics: Laboratory Tests 03/18/17 0645: Sodium Pending, Potassium Pending, Chloride Pending, Carbon Dioxide Pending, Anion Gap Pending, BUN Pending, Creatinine Pending, BUN/Creatinine Ratio Pending Assessment/Plan Assessment: Yesterday patient admitted to feeling faint and lightheaded for which orthostats were assessed and determined to be mildly positive. Given that she was symptomatic she was given a small amount of fluids kept overnight for observation. Her symptoms have improved today. Orthostats were reassessed today and were negative. She is to be discharged back to her assisted living facility today with instruction to follow up with her shoe ironer Dr. Flores within one week. Lasix are to be continued as outpatient, however to be taken every other day versus daily. Problem List: -Acute decompensated Heart Failure with preserved ejection fraction -COPD, not on home oxygen -Hypothyroidism -Macular Degeneration -Anxiety / Depression Plan: -DC to home -Repeat Orthostats negative -TRC -Supplemental O2 PRN, currently on room air -Symbicort discontinued, continue Breo -Hold lasix, take EOD on DC -Continue Trazodone 25mg PO TID, hold for sedation -Continue Lexapro, Synthroid, Omeprazole, Spiriva -PT eval: Home PT -Pain pathway -Bowel regimen -DVT PPx -DNR/DNI Problem List: 1. CHF (congestive heart failure) Pain Ratin Pain Location: None Pain Goal: Remain pain free Pain Plan: See assessment Tomorrow's Labs & Rationales: None Consulting Request: Consulting Specialty: Cardiology (car) MICHAEL CABAN,RONDA 03/18/17 1258: Attending MD Review Statement Attending Statement Attending MD Statement: examined this patient, discuss w/resident/PA/EXCEPTIONAL NEEDS TEACHER, agreed w/resident/PA/EXCEPTIONAL NEEDS TEACHER, discussed with family, reviewed EMR data (avail), discussed with nursing, discussed with case mgmt, amended to note Attending Assessment/Plan: Patient seen and examined. Resting comfortably and not in any acute distress. No issues overnight. No events on telemetry. Reports feeling better today. Denies chest pain or shortness of breath. Denies palpitations. Reports only mild lightheadedness with position changes. Orthostatic vitals are negative. On examination lungs are clear bilaterally. Heart sounds are regular. She has no peripheral edema. She had large lymph nodes distention. Problems: 1. Acute on chronic diastolic heart failure. 2. Secondary to underlying moderate mitral regurgitation and pulmonary hypertension. 3. Mild COPD exacerbation due to difficulty utilizing her Symbicort inhaler. 4. Hyponatremia Plan: -Patient medically stable to be discharged home today. -She'll be discharged on Lasix 20 mg every other day. She will follow-up in the CHF clinic as an outpatient. -Further evaluation and long-term management of her moderate mitral regurgitation to be determined as an outpatient during cxardiology followup. -She'll be discharged on Lasix 20 mg every other day. She will follow-up in the CHF clinic as an outpatient. -Further evaluation and long-term management of her moderate mitral regurgitation to be determined as an outpatient during cxardiology followup.
[2017-03-18 08:08] VITALS: BP 132/78
--- NOTE | 2017-03-18 10:26 | Discharge Summary ---
Visit Information Visit Dates Admission Date: 03/15/17 Discharge Date: 03/18/17 Hospital Course Course Attending Physician: RONDA RODRIGUEZ M.D Primary Care Physician: BRADY CABAN,MARTINA Pacheco Consulting Request: Consulting Specialty: Cardiology (car) Hospital Course: 86 year old woman with significant past medical history of HFpEF (EF 60-65%) and COPD seen for evaluation of shortness of breath and fatigue. Patient was recently admitted to [facility] from 11/21-11/25/16 for sepsis of urologic origin. She is a resident of [facility] and ambulates independently with a rolling walker. Prior to admission she reported worsening of her baseline shortness of breath and white sputum production. She otherwise admitted to noncompliance with her nebulizer medications. She otherwise denied any chest pain, lower extremity swelling, fever, or chills. Past medical history- HFpEF, COPD, HTN, MV regurgitation, spinal stenosis, anxiety/depression, hypothyroidism, pernious anemia Vital signs upon inital evaluation were significant for mild hypoxia. Physical examination was remarkable for a systolic murmur without S3/S4 with otherwise clear lungs, no JVD or lower extremity swelling was noted. CXR was suggestive of pulmonary edema. Troponins were negative, BNP 9850. HFpEF with EF 60-65% / Hyponatremia / COPD Patient was admitted to the telemetry floor for further evaluation. Telemetry events remained unremarkable. She was initially given intravenous lasix however for soon converted back to her home oral dose. Patient attributed her medication noncompliance due to difficulty utilizing her symbicort from her arthritis for which she was converted to Breo. Patient was found to be orthostat positive during admission for which lasix were held and patient was monitored. Orthostasis resolved and Lasix were changed to every other day. Physical therapy evaluation determined that patient did not require any short term rehabiliation. She is discharged back to assisted living with a prescription for Breo, lasix at its new dose, and albuterol nebulizer solution. She is instructed to follow up with her PCP for repeat serum chemistry testing for her hyponatremia next week. Allergies: Coded Allergies: Iodinated Contrast- Oral and IV Dye (Iodinated Contrast Media - IV Dye) (IVP DYE HIVES 03/12/16) Significant Procedures: SERVICE DATE: 03/15/17-902 EXAM TYPE: RAD - XRY-PORTABLE CHEST XRAY IMPRESSION: Chronic left lower lobe disease. Cardiomegaly with pulmonary edema. Disposition Summary Disposition Principal Diagnosis: Acute Diastolic Heart Failure COPD with medication noncompliance Additional Diagnosis: Moderate mitral regurgitation. Pulmonary hypertension. Discharge Disposition: home health services Discharge Instructions General Discharge Information Code Status: Do Not Resucitate/Intubat Patient's Diet: Heart Healthy Diet Patient's Activity: Return to full activity as tolerated per PT assessment Follow-Up Instructions/Appts: Please follow up with your primary care within 1 week Please follow up with your heavy mobile equipment repairer within 1 week Stop taking the Symbicort, it has been replaced by BREO. Start taking lasix every other day instead of daily. Patient is to follow-up in the heart failure clinic as an outpatient Medications at Discharge Discharge Medications: Stop taking the following medications: Budesonide/Formoterol Fumarate (Symbicort 160-4.5 Mcg Inhaler) 10.2 GM HFA.AER.AD Inhale through mouth TWICE DAILY Qty = 10 Albuterol Sulfate (Albuterol Sulfate) 2.5 MG/3 ML VIAL.NEB Inhale Solution Q2H as needed for SOB Cephalexin (Cephalexin) 500 MG CAPSULE ORAL TWICE DAILY Qty = 20 Calcium Polycarbophil (Fibercon) 625 MG TABLET ORAL HS PRN as needed for BOWEL Continue taking these medications: Cyanocobalamin (Vitamin B-12) 1,000 MCG TABLET 1 Tablet ORAL DAILY Comments: GIVEN 03/18/17 @ 0850 Albuterol Sulfate (Proair Hfa) 8.5 GM HFA.AER.AD 2 Puff Inhale through mouth Q4H as needed for SOB/WHEEZE Qty = 8 Comments: Last Taken: Time:GIVEN THROUGH NEBULIZER 03/18/17 @ 0840 Tiotropium [place] (Spiriva Respimat) 4 GM MIST.INHAL 1 PUFF Inhale through mouth DAILY Comments: GIVEN 03/18/17 @ 0850 Ferrous Sulfate (Ferrous Sulfate) 325 MG TABLET 1 Tablet ORAL TAKE AT BEDTIME Comments: GIVEN 03/17/17 @ 9:30 PM Levothyroxine Sodium (Levothyroxine Sodium) 100 MCG TABLET 1 Tablet ORAL DAILY Comments: GIVEN 03/18/17 @ 0650 Trazodone HCl (Trazodone HCl) 50 MG TABLET 0.5 Tablet ORAL THREE TIMES DAILY as needed for ANXIETY Comments: GIVEN 03/17/17 @ 9:30 PM Guaifenesin (Adult Tussin Chest Congestion) (Unknown Strength) LIQUID Unknown Dose ORAL As Directed Comments: NOT GIVEN Melatonin (Melatonin) 3 MG TABLET 1 Tablet ORAL Every night as needed for INSOMNIA Comments: GIVEN 03/17/17 @ 9:30 PM Docusate Sodium (Colace) 100 MG CAPSULE 1 Capsule ORAL EVERY OTHER DAY Comments: NOT GIVEN Sennosides (Senna) 8.6 MG TABLET 1 Tablet ORAL HS PRN as needed for CONSTIPATION Comments: NOT GIVEN Loratadine/Pseudoephedrine (Claritin-D 12 Hour Tablet) 5 MG-120 MG TAB.ER.12H 1 Tablet ORAL QAM PRN as needed for ALLERGIES Comments: GIVEN 03/15/17 @ 8:10PM Escitalopram Oxalate (Escitalopram Oxalate) 20 MG TABLET 1 Tablet ORAL DAILY Qty = 90 Comments: NOT GIVEN Omeprazole (Omeprazole) 40 MG CAPSULE.DR 1 Tablet ORAL DAILY Qty = 30 Comments: NOT GIVEN Potassium Chloride (Potassium Chloride) 20 MEQ TAB.ER.PRT 1 Tablet ORAL DAILY as needed for FOR POTASSIUM REPLENISHMENT Qty = 30 Comments: GIVEN 03/16/17 @ 12PM Start taking the following new medications: Fluticasone/Vilanterol (Breo Ellipta 100-25 Mcg INH) 100 MCG-25 MCG/DOSE BLST.W.DEV 1 Inhalant ORAL DAILY Qty = 1 No Refills Comments: NOT GIVEN Furosemide (Furosemide) 20 MG TABLET 1 Tablet ORAL Every other day Qty = 30 No Refills Comments: GIVEN 03/17/17 @ 0850 Albuterol Sulfate (Albuterol Sulfate) 0.63 MG/3 ML VIAL.NEB 1 Vial Inhale Solution 4 TIMES A DAY as needed for SHORTNESS OF BREATH / WHEEZING Qty = 150 No Refills Comments: GIVEN 03/18/17 @ 0830 Copies To: DANK CABAN,Chelly CONSTANTINO; BRADY CABAN,MARTINA Pacheco; CARLOS CABAN,MICHAEL Hernandez MD Review Statement Documenting Attending: RONDA RODRIGUEZ M.D Other Findings: Patient medically stable to be discharged home.
== END 2017-03-18 13:05 | DRG 292 ==
LOC: DELPENDDIS → ERH 08:33 → ERHI 10:03 → 1NO 10:03 → ENRESERV 11:26 → ENTRNSPT 12:21 → EDTRNSPTTYP 12:48 → EDTRNSPT 12:48 → CMPTRNSPT 13:38 → 1NO 13:52 → ENPENDDIS 03-17 10:15 → 1NO 03-18 13:05
PROVIDERS: Emergency Medicine; ADMIT Hospitalist
DX: I11.0 Hypertensive heart disease with heart failure (principal); J44.1 Chronic obstructive pulmonary disease with (acute) exacerbation; E87.1 Hypo-osmolality and hyponatremia; I27.2 Other secondary pulmonary hypertension; I50.33 Acute on chronic diastolic (congestive) heart failure; E87.6 Hypokalemia; E03.9 Hypothyroidism, unspecified; H35.30 Unspecified macular degeneration; F41.8 Other specified anxiety disorders; D51.0 Vitamin B12 deficiency anemia due to intrinsic factor deficiency; I34.0 Nonrheumatic mitral (valve) insufficiency; Z66 Do not resuscitate; G47.00 Insomnia, unspecified; Z91.14 Patient's other noncompliance with medication regimen
CPT/HCPCS: 1NP; 36415; 81003; 82436; 93005; 93010; 96374; 97116-GO; 97161-GP; 97530-GO; J1644; J1940; J2405; J2930; J3490; J7040

== ENCOUNTER 2017-03-22 15:33 | Emergency (ER) | payer OTHER, MEDICARE ==
[~2017-03-22] VITALS: Ht 152.4 cm; Wt 44.0 kg
[~2017-03-22 15:33] MED LIST changes: +ALBUTEROL0.63 MG/1 INH/SOL; +BREO ELLIPTA 11 EACH PO; +ESCITALOPRAM OX20 MG PO; +FIBERCON625 M1 PO; +FUROSEMIDE20 M1 PO; +POTASSIUM CHLO20 ME2 PO
--- NOTE | 2017-03-22 15:46 | ED GENERAL ADULT ---
History of Present Illness General Chief Complaint: General Adult Stated Complaint: LOW BLOOD PRESSURE Source: patient, family, old records Exam Limitations: no limitations Vital Signs & Intake/Output Vital Signs & Intake/Output Vital Signs Date Time Temp Pulse Resp B/P B/P Pulse O2 O2 Flow FiO2 Mean Ox Delivery Rate 03/22 1620 97.0 72 116/65 03/22 1548 96/56 03/22 1540 98.6 76 18 84/47 98 Room Air Allergies Coded Allergies: Iodinated Contrast- Oral and IV Dye (Iodinated Contrast Media - IV Dye) (IVP DYE HIVES 03/12/16) Reconcile Medications Albuterol Sulfate (Proair Hfa) 8.5 GM HFA.AER.AD 2 PUF INH Q4H PRN SOB/WHEEZE (Reported) Albuterol Sulfate 0.63 MG/3 ML VIAL.NEB 1 Vial INH/SUSAN 4 TIMES/DAY PRN SHORTNESS OF BREATH / WHEEZING Cyanocobalamin (Vitamin B-12) 1,000 MCG TABLET 1 TAB PO DAILY VITAMIN SUPPORT (Reported) Docusate Sodium (Colace) 100 MG CAPSULE 1 CAP PO EVERY OTHER DAY BOWEL REGIMEN (Reported) Escitalopram Oxalate 20 MG TABLET 1 TAB PO DAILY depression (Reported) Ferrous Sulfate 325 MG TABLET 1 TAB PO QHS SUPPLEMENT (Reported) Fluticasone/Vilanterol (Breo Ellipta 100-25 Mcg INH) 100 MCG-25 MCG/DOSE BLST.W.DEV 1 INHA PO DAILY COPD Furosemide 20 MG TABLET 1 TAB PO EOD DIURETIC Guaifenesin (Adult Tussin Chest Congestion) (Unknown Strength) LIQUID (Unknown Dose) PO AD COUGH (Reported) Levothyroxine Sodium 100 MCG TABLET 1 TAB PO DAILY THYROID (Reported) Loratadine/Pseudoephedrine (Claritin-D 12 Hour Tablet) 5 MG-120 MG TAB.ER.12H 1 TAB PO QAM PRN PRN ALLERGIES (Reported) Melatonin 3 MG TABLET 1 TAB PO QPM PRN INSOMNIA (Reported) Omeprazole 40 MG CAPSULE.DR 1 TAB PO DAILY ACID (Reported) Potassium Chloride 20 MEQ TAB.ER.PRT 1 TAB PO DAILY PRN FOR POTASSIUM REPLENISHMENT (Reported) Sennosides (Senna) 8.6 MG TABLET 1 TAB PO HS PRN PRN CONSTIPATION (Reported) Tiotropium [place] (Spiriva Respimat) 4 GM MIST.INHAL 1 PUFF INH DAILY COPD ( Reported) Trazodone HCl 50 MG TABLET 0.5 TAB PO TID PRN ANXIETY (Reported) Triage Note: 86 YO FEMALE TO ER C/O "LOW BLOOD PRESSURE" PT STATES HER VISING NURSE CAME TODAY AND TOLD HER TO COME TO THE ER D/T THE LOW BP. BP 84/47 AT THIS TIME. PT DENIES PAIN. PT C/O FEELING "LETHARGIC AND TIRED" PT ALERT AND ORIENTED X3 Triage Nurses Notes Reviewed? yes HPI: Patient sent in by his visiting nurse for evaluation of hypotension. Patient was recently admitted to the hospital for IV Lasix. Her visiting nurse checked on her today and found her to be hypotensive. Patient has no complaints. Patient denies any chest pain or palpitations. There is no dyspnea on exertion and orthopnea. There is no shortness of breath. There is no lightheadedness. There is no nausea or vomiting. Patient's sister states that the visiting nurse took her blood pressure with a large cuff and over 2 sweaters. Past History Travel History Traveled to [place] past 21 day No Medical History Any Pertinent Medical History? see below for history Neurological: NONE EENT: macular degeneration Cardiovascular: hypertension, mitral regurgitation (SEVERE) Respiratory: COPD, pulmonary hypertension Gastrointestinal: NONE Hepatic: NONE Renal: NONE Musculoskeletal: disk herniation, spinal stenosis Psychiatric: anxiety, depression Endocrine: hypothyroidism Blood Disorders: PERNICIOUS ANEMIA Cancer(s): NONE CONCERT OR LECTURE HALL MANAGER/Reproductive: NONE History of MRSA: No History of VRE: No History of CDIFF: No Tetanus Vaccine: 11/01/15 Surgical History Surgical History: hysterectomy, spinal surgery Psychosocial History Services at Home Nursing What is your primary language Syriac Tobacco Use: Quit >30 days ago ETOH Use: denies use Illicit Drug Use: denies illicit drug use Family History Family History, If Any: FATHER (Colon Cancer, ). MOTHER (RA, ). Relation not specified for: *No pertinent family history Hx Contributory? No Review of Systems Review of Systems Constitutional: Reports: no symptoms. EENTM: Reports: no symptoms. Respiratory: Reports: no symptoms. Cardiovascular: Reports: no symptoms. GI: Reports: no symptoms. Genitourinary: Reports: no symptoms. Musculoskeletal: Reports: no symptoms. Skin: Reports: no symptoms. Neurological/Psychological: Reports: no symptoms. Hematologic/Endocrine: Reports: no symptoms. Immunologic/Allergic: Reports: no symptoms. All Other Systems: Reviewed and Negative Physical Exam Physical Exam General Appearance: well developed/nourished, alert, awake Head: atraumatic, normal appearance Eyes: Bilateral: PERRL, EOMI. Ears, Nose, Throat: normal pharynx, normal ENT inspection, hearing grossly normal Neck: normal inspection, supple, full range of motion Respiratory: normal breath sounds, chest non-tender, no respiratory distress, lungs clear Cardiovascular: regular rate/rhythm, normal peripheral pulses Gastrointestinal: normal bowel sounds, soft, non-tender Back: normal inspection, normal range of motion Extremities: normal inspection, normal capillary refill, normal range of motion, no edema Neurologic/Psych: no motor/sensory deficits, awake, alert, oriented x 3, normal mood/affect Skin: intact, normal color, warm/dry Lymphatic: no anterior cervical kenji Core Measures ACS in differential dx? No CVA/TIA Diagnosis: No Severe Sepsis Present: No Septic Shock Present: No Progress Differential Diagnoses I considered the following diagnoses in my evaluation of the patient: [ DEHYDRATION, B/P TAKEN WITH WRONG CUFF] Plan of Care: Orders Procedure Date/time Status URINALYSIS 03/22 1546 Active TROPONIN LEVEL 03/22 1546 Complete COMPREHENSIVE METABOLIC PANEL 03/22 1546 Complete CBC WITHOUT DIFFERENTIAL 03/22 1546 Complete EKG 03/22 1546 Active Laboratory Tests 03/22/17 1615: Anion Gap 9, Estimated GFR 43 L, BUN/Creatinine Ratio 15.0, Glucose 103 H, Calcium 8.5, Total Bilirubin 0.3, AST 13 L, ALT 20, Alkaline Phosphatase 75, Troponin I < 0.01, Total Protein 6.2 L, Albumin 3.1 L, Globulin 3.1, Albumin/ Globulin Ratio 1.0 L, CBC w Diff NO MAN DIFF REQ, RBC 4.00 L, MCV 82.2, MCH 26.9 L, RDW 15.0 H, MPV 6.6 L, Gran % 76.3 H, Lymphocytes % 12.6 L, Monocytes % 9.5 H, Eosinophils % 1.1, Basophils % 0.5, Absolute Granulocytes 9.0 H, Absolute Lymphocytes 1.5, Absolute Monocytes 1.1 H, Absolute Eosinophils 0.1, Absolute Basophils 0.1, PUBS MCHC 32.7 L Initial ED EKG: NSR, LBBB, nonspecific ST T wave chg Prior EKG: unchanged Comments: Blood pressure taken with the proper size cuff and without her sweaters being on. Her blood pressure is normal and there are no orthostatic changes. Departure Departure Disposition: HOME OR SELF CARE Condition: Stable Clinical Impression Primary Impression: Hypotension Referrals: BRADY CABAN,MARTINA Pacheco (PCP/Family) Additional Instructions: RETURN FOR ANY CONCERNS Departure Forms: Customer Survey General Discharge Information Critical Care Note Critical Care Note Critical Care Time: non-applicable
[2017-03-22 16:29] LABS: ABSOLUTE BASOPHIL COUNT 0.1 /CUMM (0.0-0.2); ABSOLUTE EOSINOPHIL COUNT 0.1 /CUMM (0.0-0.7); ABSOLUTE LYMPH COUNT 1.5 /CUMM (1.2-3.4); ABSOLUTE MONOCYTE COUNT 1.1 /CUMM (0.10-0.60); BASOPHIL % 0.5 % (0.0-2.0); EOSINOPHIL % 1.1 % (0-5); GRANULOCYTE % 76.3 % (42.2-75.2); HEMATOCRIT 32.9 % (37-47); MEAN CORPUSCULAR HGB 26.9 PG (27.0-31.0); MEAN CORPUSCULAR HGB CONC 32.7 G/DL (33.0-37.0); MEAN CORPUSCULAR VOLUME 82.2 FL (81.0-99.0); MEAN PLATELET VOLUME 6.6 FL (7.4-10.4); PLATELET COUNT 319 /CUMM (130-400); WHITE BLOOD CELL COUNT 11.8 /CUMM (4.8-10.8)
[2017-03-22 17:29] VITALS: BP 117/68
== END 2017-03-22 17:45 ==
LOC: ERH 15:33
PROVIDERS: Emergency Medicine
DX: I95.9 Hypotension, unspecified (principal)
CPT/HCPCS: 93005; 93010

== ENCOUNTER 2018-05-02 10:54 | Inpatient (IN) | payer OTHER ==
[~2018-05-02] VITALS: Ht 165.1 cm; Wt 55.8 kg
--- NOTE | 2018-05-02 11:37 | ED AMS/SEIZURE/WEAK/DIZZY ---
History of Present Illness General Chief Complaint: General Adult Stated Complaint: BIBA WEAKNESS/LOW BP Source: patient, old records Exam Limitations: no limitations Vital Signs & Intake/Output Vital Signs & Intake/Output Vital Signs Date Time Temp Pulse Resp B/P B/P Pulse O2 O2 Flow FiO2 Mean Ox Delivery Rate 05/02 1122 95 Nasal 2.0L Cannula 05/02 1114 18 95 Nasal 2.0L Cannula 05/02 1114 18 89 Room Air Room Air 05/02 1112 98.3 76 19 128/70 94 Room Air Room Air Allergies Coded Allergies: Iodinated Contrast- Oral and IV Dye (Iodinated Contrast Media - IV Dye) (IVP DYE HIVES 03/12/16) Reconcile Medications Albuterol Sulfate (Proair Hfa) 8.5 GM HFA.AER.AD 2 PUF INH Q4H PRN SOB/WHEEZE (Reported) Albuterol Sulfate 0.63 MG/3 ML VIAL.NEB 1 Vial INH/SUSAN 4 TIMES/DAY PRN SHORTNESS OF BREATH / WHEEZING Cyanocobalamin (Vitamin B-12) 1,000 MCG TABLET 1 TAB PO DAILY VITAMIN SUPPORT (Reported) Docusate Sodium (Colace) 100 MG CAPSULE 1 CAP PO EVERY OTHER DAY BOWEL REGIMEN (Reported) Escitalopram Oxalate 20 MG TABLET 1 TAB PO DAILY depression (Reported) Ferrous Sulfate 325 MG TABLET 1 TAB PO QHS SUPPLEMENT (Reported) Fluticasone/Vilanterol (Breo Ellipta 100-25 Mcg INH) 100 MCG-25 MCG/DOSE BLST.W.DEV 1 INHA PO DAILY COPD Furosemide 20 MG TABLET 1 TAB PO EOD DIURETIC Guaifenesin (Adult Tussin Chest Congestion) (Unknown Strength) LIQUID (Unknown Dose) PO AD COUGH (Reported) Levothyroxine Sodium 100 MCG TABLET 1 TAB PO DAILY THYROID (Reported) Loratadine/Pseudoephedrine (Claritin-D 12 Hour Tablet) 5 MG-120 MG TAB.ER.12H 1 TAB PO QAM PRN PRN ALLERGIES (Reported) Melatonin 3 MG TABLET 1 TAB PO QPM PRN INSOMNIA (Reported) Omeprazole 40 MG CAPSULE.DR 1 TAB PO DAILY ACID (Reported) Potassium Chloride 20 MEQ TAB.ER.PRT 1 TAB PO DAILY PRN FOR POTASSIUM REPLENISHMENT (Reported) Sennosides (Senna) 8.6 MG TABLET 1 TAB PO HS PRN PRN CONSTIPATION (Reported) Tiotropium [place] (Spiriva Respimat) 4 GM MIST.INHAL 1 PUFF INH DAILY COPD ( Reported) Trazodone HCl 50 MG TABLET 0.5 TAB PO TID PRN ANXIETY (Reported) Triage Note: 87 YEAR OLD FEMALE TO ER VIA AMBULANCE FROM LOCAL [facility] WITH COMPLAINTS OF DIZZINES SAND GENERAL WEAKNESS THAT STARTED YESTERDAY. DENIES CP/SOB, O2 SAT 95 % WHEN SITTING UP BUT WHEN PT WAS STOOD FOR ORTHOSTATICS O2 SAT DROPPED TO 88-89 %, PLACED ON 2L VIA NC AT THIS TIME AND SATURATION 95%. NSR ON MONITOR. PT STATES THAT SHE MIGHT BE DEHYDRATED. PT CALLED NURSE AFTER SHE WENT TO BATHROOM THIS AM AND FELT REALLY DIZZY, DENIES FALLING. DENIES COUGH , DENIES URINARY SYMPTOMS AT THIS TIME. Triage Nurses Notes Reviewed? yes HPI: 87yo female with a history of COPD, HFpEF with one day of lightheadedness and dizziness. Pt states that the symptoms started yesterday after eating her lunch and taking her "water pill". The dizziness persisted throughout the rest of the day, but was slightly alleviated by sitting and laying down. Pt went to bed and woke up with the persistent dizziness this morning, which prompted her to seek medical attention. Pt ambulates with the assistance of a walker. Pt is blind in her right eye and has a little blurred vision. She denies any falls, fever, chills, nausea, vomiting, chest pain, or abdominal pain. Pt lives in assisted living facility. On , there was water pipe break, so residents did not have water for 12 hours and were told not to drink water for the following 12 hours following the event, so the pt did not drink water for atleast 24 hours. Past History Travel History Traveled to [place] past 21 day No Medical History Any Pertinent Medical History? 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 MOTHER (RA, ). Relation not specified for: *No pertinent family history Hx Contributory? No Review of Systems Review of Systems Constitutional: Reports: no symptoms. EENTM: Reports: no symptoms. Respiratory: Reports: no symptoms. Cardiovascular: Reports: no symptoms. GI: Reports: no symptoms. Genitourinary: Reports: no symptoms. Musculoskeletal: Reports: no symptoms. Skin: Reports: no symptoms. Neurological/Psychological: Reports: no symptoms. Hematologic/Endocrine: Reports: no symptoms. Immunologic/Allergic: Reports: no symptoms. All Other Systems: Reviewed and Negative Physical Exam Physical Exam General Appearance: well developed/nourished, no apparent distress Head: atraumatic, normal appearance Eyes: Bilateral: normal appearance, PERRL, EOMI. 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 No CVA/TIA Diagnosis No Sepsis Present: No Sepsis Focused Exam Completed? No Progress Differential Diagnosis: arrythmia, alcohol intoxication, anemia, benign positional vertigo, CVA/stroke, dehydration, drug intoxication, encephalitis, electrolyte imbalance, GI bleed, hypoglycemia, hypoxia, intracranial Hem., intracranial mass/tumor, labrynthitis, meningitis, Meniere's disease, migraine RICHARDS, multiple sclerosis, pneumonia, postural hypotension, presyncope, post- traumatic vertigo, sepsis, seizure disorder, subarachnoid Hem., UTI/pyelo, vertebrobasilar insuff Plan of Care: Orders Procedure Date/time Status Regular Diet 05/[address] in observation 05/02 1524 Active ED Holding Orders 05/02 1524 Active Vital Signs 05/02 1524 Active URINALYSIS 05/02 1156 Complete EKG 05/02 1125 Active TROPONIN LEVEL 05/02 1110 Complete COMPREHENSIVE METABOLIC PANEL 05/02 111 Complete CBC WITHOUT DIFFERENTIAL 05/02 111 Complete Laboratory Tests 05/02/18 1200: Urine Color YEL, Urine Clarity CLEAR, Urine pH 6.5, Ur Specific [place] 1.010, Urine Protein NEG, Urine Ketones NEG, Urine Nitrite NEG, Urine Bilirubin NEG, Urine Urobilinogen 0.2, Ur Leukocyte Esterase MOD H, Ur Microscopic SEDIMENT EXAMINED, Urine RBC RARE, Urine WBC 1-3 H, Ur Epithelial Cells RARE, Urine Hemoglobin NEG, Urine Glucose NEG 05/02/18 1112: Anion Gap 11, Estimated GFR 47 L, BUN/Creatinine Ratio 11.8, Glucose 93, Calcium 8.8, Total Bilirubin 0.2, AST 16, ALT 19, Alkaline Phosphatase 80, Troponin I 0.01, Total Protein 6.3, Albumin 3.4 L, Globulin 2.9, Albumin/ Globulin Ratio 1.2, CBC w Diff NO MAN DIFF REQ, RBC 4.61, MCV 82.6, MCH 27.4, MCHC 33.2, RDW 14.2, MPV 6.4 L, Gran % 77.5 H, Lymphocytes % 11.7 L, Monocytes % 8.5, Eosinophils % 1.8, Basophils % 0.5, Absolute Granulocytes 6.5, Absolute Lymphocytes 1.0 L, Absolute Monocytes 0.7 H, Absolute Eosinophils 0.2 , Absolute Basophils 0 Initial ED EKG: AFIB, LBBB Departure Departure Disposition: STILL A PATIENT Condition: Stable Clinical Impression Primary Impression: Orthostatic hypotension Secondary Impressions: Vertigo Referrals: Ede CABAN,Attila Pacheco (PCP/Family) Departure Forms: Customer Survey General Discharge Information Observation Note Spoke With: Kevin CABAN,Amihilary Physician Advisor Notified: VICTORIANO CABAN,MASSIEL Estrada Place Patient In: Non-ED OBS Care Area Rationale for Observation: My rational for observation is as follows orthostatic hypotension and intractable vertigo due to dehydration with no improvement after IV fluids, will place in observation, hydrate, case management and physical therapy, believe she will improve over 24 hours and be able to go back to assisted living..
[2018-05-02 11:38] LABS: ABSOLUTE BASOPHIL COUNT 0 /CUMM (0.0-0.2); ABSOLUTE EOSINOPHIL COUNT 0.2 /CUMM (0.0-0.7); ABSOLUTE GRANULOCYTE CT 6.5 /CUMM (1.4-6.5); ABSOLUTE MONOCYTE COUNT 0.7 /CUMM (0.10-0.60); BASOPHIL % 0.5 % (0.0-2.0); EOSINOPHIL % 1.8 % (0-5); GRANULOCYTE % 77.5 % (42.2-75.2); MEAN CORPUSCULAR HGB 27.4 PG (27.0-31.0); MEAN CORPUSCULAR HGB CONC 33.2 G/DL (33.0-37.0); MEAN CORPUSCULAR VOLUME 82.6 FL (81.0-99.0); MEAN PLATELET VOLUME 6.4 FL (7.4-10.4); PLATELET COUNT 349 /CUMM (130-400); RBC DISTRIBUTION WIDTH 14.2 % (11.5-14.5); RED BLOOD CELL CT 4.61 /CUMM (4.20-5.40); WHITE BLOOD CELL COUNT 8.4 /CUMM (4.8-10.8)
[2018-05-02 15:33] VITALS: BP 130/80
--- NOTE | 2018-05-02 15:48 | History & Physical ---
Mae Mckeon 05/02/18 1547: General Information and HPI MD Statement: I have seen and personally examined DHEERAJ TONG and documented this H&P. The patient is a 87 year old F who presented with a patient stated chief complaint of [dehydration]. Source of Information: patient, old records Exam Limitations: no limitations History of Present Illness: Ms. 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 During triage, patient had O2 sat dropped to 88%-89% while being tested for orthostatic vitals, and was placed on 2LNC. Patient attributed her dizziness that started yesterday after lunch to the her taking of "water pill". She had persisted dizziness through out the day but alleviated when laying down/sitting. At baseline, patient ambulated freely without exercise intolerace with a walker at assisted living, and has blindness of left eye and ongoing vision loss of right eye per patient. She also stated that on , there was a water pipi break at her apartment so resident could not have water for 12 hours, thus she had not been drinking for almost 24hrs back then. Patient sees Dr. Flores/Wilton in outpatient and next appointment will be 05/17/2018. During our clinical interaction, patient denied recent travel/sick contacts, fever/diaphoresis/night sweat/weight change/cough/SOB/Chest Pain/Palpitation/ Abdominal pain/bowel movement or urinary abnormality, or other skin/ musculoskeletal/neurological/mood disorders, or dietary/appetite change. -Smoking: deniend -Alcohol: denied -Rec Drugs: denied Allergies/Medications Allergies: Coded Allergies: Iodinated Contrast- Oral and IV Dye (Iodinated Contrast Media - IV Dye) (IVP DYE HIVES 03/12/16) Home Med list Albuterol Sulfate (Proair Hfa) 8.5 GM HFA.AER.AD 2 PUF INH Q4H PRN SOB/WHEEZE (Reported) Albuterol Sulfate 0.63 MG/3 ML VIAL.NEB 1 Vial INH/SUSAN 4 TIMES/DAY PRN SHORTNESS OF BREATH / WHEEZING Cyanocobalamin (Vitamin B-12) 1,000 MCG TABLET 1 TAB PO DAILY VITAMIN SUPPORT (Reported) Docusate Sodium (Colace) 100 MG CAPSULE 1 CAP PO EVERY OTHER DAY BOWEL REGIMEN (Reported) Escitalopram Oxalate 20 MG TABLET 1 TAB PO DAILY depression (Reported) Ferrous Sulfate 325 MG TABLET 1 TAB PO QHS SUPPLEMENT (Reported) Fluticasone/Vilanterol (Breo Ellipta 100-25 Mcg INH) 100 MCG-25 MCG/DOSE BLST.W.DEV 1 INHA PO DAILY COPD Furosemide 20 MG TABLET 1 TAB PO EOD DIURETIC Guaifenesin (Adult Tussin Chest Congestion) (Unknown Strength) LIQUID (Unknown Dose) PO AD COUGH (Reported) Levothyroxine Sodium 100 MCG TABLET 1 TAB PO DAILY THYROID (Reported) Loratadine/Pseudoephedrine (Claritin-D 12 Hour Tablet) 5 MG-120 MG TAB.ER.12H 1 TAB PO QAM PRN PRN ALLERGIES (Reported) Melatonin 3 MG TABLET 1 TAB PO QPM PRN INSOMNIA (Reported) Omeprazole 40 MG CAPSULE.DR 1 TAB PO DAILY ACID (Reported) Potassium Chloride 20 MEQ TAB.ER.PRT 1 TAB PO DAILY PRN FOR POTASSIUM REPLENISHMENT (Reported) Sennosides (Senna) 8.6 MG TABLET 1 TAB PO HS PRN PRN CONSTIPATION (Reported) Tiotropium [place] (Spiriva Respimat) 4 GM MIST.INHAL 1 PUFF INH DAILY COPD ( Reported) Trazodone HCl 50 MG TABLET 0.5 TAB PO TID PRN ANXIETY (Reported) Past History Travel History Traveled to [place] past 21 day No Medical History Neurological: NONE EENT: macular degeneration Cardiovascular: hypertension, mitral regurgitation (SEVERE) Respiratory: COPD, pulmonary hypertension Gastrointestinal: NONE Hepatic: NONE Renal: NONE Musculoskeletal: disk herniation, spinal stenosis Psychiatric: anxiety, depression Endocrine: hypothyroidism Blood Disorders: PERNICIOUS ANEMIA Cancer(s): NONE 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 MOTHER (RA, ). Relation not specified for: *No pertinent family history Psychosocial History Services at Home: Nursing Primary Language: Kyrgyz Smoking Status: Never Smoked ETOH Use: denies use Illicit Drug Use: denies illicit drug use Living Will? yes Power of Commissary Manager/HCP? no Functional Ability ADLs Independent: dressing, eating, toileting, bathing. Ambulation: independent (has walker does not use it) IADLs Independent: shopping, housework, finances, food prep, telephone. Needs Assist: transportation, medication admin. Review of Systems Review of Systems Constitutional: Reports: see HPI. Exam & Diagnostic Data Last 24 Hrs of Vital Signs/I&O Vital Signs Date Time Temp Pulse Resp B/P B/P Pulse O2 O2 Flow FiO2 Mean Ox Delivery Rate 05/02 1733 Room Air 05/02 1635 98.7 77 18 141/64 96 05/02 1451 116/59 05/02 1122 95 Nasal 2.0L Cannula 05/02 1114 18 95 Nasal 2.0L Cannula 05/02 111 18 89 Room Air Room Air 05/02 1112 98.3 76 19 128/70 94 Room Air Room Air Intake & Output 05/02 1600 05/02 0800 05/02 0000 Intake Total 0 Output Total Balance 0 Intake, Oral 0 Patient 55.792 kg Weight Physical Exam General Appearance Alert, Oriented X3, Cooperative, No Acute Distress Skin No Rashes, No Breakdown, No Significant Lesion Skin Temp/Moisture Exam: Warm/Dry Sepsis Skin Exam (color): Normal for Ethnicity HEENT Atraumatic, PERRLA Neck Supple, No JVD Cardiovascular Regular Rate Lungs Clear to Auscultation, Normal Air Movement Abdomen Normal Bowel Sounds, Soft, No Tenderness Neurological Normal Speech, Strength at 5/5 X4 Ext, Normal Tone, Sensation Intact Extremities No Edema, Normal Pulses, No Tenderness/Swelling, BLEs w/ chronic skin change likely 2/2 venous stasis Last 24 Hrs of Labs/Contreras: Laboratory Tests 05/02/18 1200: Urine Color YEL, Urine Clarity CLEAR, Urine pH 6.5, Ur Specific [address] 1.010, Urine Protein NEG, Urine Ketones NEG, Urine Nitrite NEG, Urine Bilirubin NEG, Urine Urobilinogen 0.2, Ur Leukocyte Esterase MOD H, Ur Microscopic SEDIMENT EXAMINED, Urine RBC RARE, Urine WBC 1-3 H, Ur Epithelial Cells RARE, Urine Hemoglobin NEG, Urine Glucose NEG 05/02/18 1112: Anion Gap 11, Estimated GFR 47 L, BUN/Creatinine Ratio 11.8, Glucose 93, Calcium 8.8, Total Bilirubin 0.2, AST 16, ALT 19, Alkaline Phosphatase 80, Troponin I 0.01, Total Protein 6.3, Albumin 3.4 L, Globulin 2.9, Albumin/ Globulin Ratio 1.2, CBC w Diff NO MAN DIFF REQ, RBC 4.61, MCV 82.6, MCH 27.4, MCHC 33.2, RDW 14.2, MPV 6.4 L, Gran % 77.5 H, Lymphocytes % 11.7 L, Monocytes % 8.5, Eosinophils % 1.8, Basophils % 0.5, Absolute Granulocytes 6.5, Absolute Lymphocytes 1.0 L, Absolute Monocytes 0.7 H, Absolute Eosinophils 0.2 , Absolute Basophils 0 Assessment/Plan Assessment: On admission, Vitals: stable afebrile, HR 76, RR 18, BP 128/70, 95% under 2LNC -CBC: unremarkable -BMP: hyponatremia 134, elevated Cr 1.1 however at her baseline for the past year -UA/Microbiology: +ve LE/1-5 WBC, no cc of dysuria -Last Echo 11/2016: 1. Aortic sclerosis is present with mild aortic insufficiency and mild dilatation of the ascending aorta. 2. Moderate thickening and calcification of the mitral leaflets is present with anular calcification and eccentric mitral insufficiency which is at least moderate in severity with moderate left atrial enlargement. There appears to be mild systolic prolapse of the anterior mitral leaflet present. 3. There is no significant pericardial fluid present . 4. The left ventricular chamber size is normal with mild to moderate concentric hypertrophy and a normal ejection fraction with no obvious resting wall motion abnormalities. 5. Mild tricuspid insufficiency is present with right atrial enlargement and pulmonary hypertension with an estimated RV systolic pressure of 50 mmHg. -Interventions in ER: NS Bolus x 1 Problem list/Assessment/Hospital Course: #Dehydration w/ possible orthostatic vitals #mild hyponatremia 2/2 dehydration #PMH of COPD not on home oxygen, HTN, Pulm HTN, mitral regurgitation, anxiety/ depression, Hypothyroidism, s/p hysterectomy - Placed to observation on [facility] floor - Vitals per protocol, monitor I&O per protocol. Orthostatic vitals check if capable - TRC Nebulizer. Patient is not currently exacerbating however was placed on 2L due to sudden desat in triage - PT/OT if appropriate - COntinusous IVF at 100cc/hr x 2 bags, may dc once PO intake normalized. - COntinue all home meds, however holding lasix. Recommended to restart once patient met w/ mapping pilot in outpatient setting on 05/17/2018./ -Pain per pathway. DVT prophylaxis Heparin SC + ALPS Heart Healthy Diet IV Access: Peripheral IV DNR/DNI As Ranked By This Provider Problem List: 1. Lightheadedness Core Measures/Misc (06/28) Acute Coronary Syndrome ACS Diagnosis: No Congestive Heart Failure Congestive Heart Failure Diagnosis No Cerebrovascular Accident CVA/TIA Diagnosis: No VTE (View Protocol) VTE Risk Factors Age>40 No Mechanical VTE Prophylaxis d/t N/A MechProphylax Ordered No VTE Pharm Prophylaxis d/t NA PharmProphylax ordered Sepsis (View protocol) Sepsis Present: No If YES complete Sepsis Event Note If YES complete Sepsis Event Note Kevin CABAN,Amir 05/02/18 1749: Core Measures/Misc (06/28) Sepsis (View protocol) If YES complete Sepsis Event Note If YES complete Sepsis Event Note Attending MD Review Statement Attending Statement Attending MD Statement: examined this patient, discuss w/resident/PA/DRESSMAKER OR TAILOR, agreed w/resident/PA/DRESSMAKER OR TAILOR, reviewed EMR data (avail), discussed with nursing Attending Assessment/Plan: Pt was seen and evaluated with the resident. Agree with A/P as outline above --agree with IVF hydration --cont home meds --likely d/c in am
[2018-05-02 22:48] VITALS: BP 136/63
[2018-05-03 06:01] VITALS: BP 134/74
--- NOTE | 2018-05-03 07:52 | Patient Discharge Instructions ---
Discharge Instructions General Discharge Information Special Instructions: - Please follow up with your your booking supervisor Dr. Flores/Wilton in 05/2018 regarding your water pill dose - Please follow up with your primary care physician within 1-2 weeks of discharge. Inform your primary care physician of this admission to [facility]. - Continue your current medications per discharge instructions. - Please watch for these problems: Fever, Chills, Nausea, Vomiting, Shortness of Breath, Productive Cough, Chest Pain/Discomfort, Abdominal Pain, Active Bleeding or Bloody urine/stool. Diet Continue normal diet: Yes Activity Full Activity/No Limits: Yes Acute Coronary Syndrome Inclusion Criteria At DC or during hospital stay patient has or had the following: ACS DIAGNOSIS No Discharge Core Measures Meds if any: Prescribed or Continued at Discharge Meds if any: NOT Prescribed or Continued at Discharge Congestive Heart Failure Inclusion Criteria At DC or during hospital stay patient has or had the following: CHF DIAGNOSIS No Discharge Core Measures Meds if any: Prescribed or Continued at Discharge Meds if any: NOT Prescribed or Continued at Discharge Cerebrovascular accident Inclusion Criteria At DC or during hospital stay patient has or had the following: CVA/TIA Diagnosis No Discharge Core Measures Meds if any: Prescribed or Continued at Discharge Meds if any: NOT Prescribed or Continued at Discharge Venous thromboembolism Inclusion Criteria VTE Diagnosis No VTE Type NONE VTE Confirmed by (Test) NONE Discharge Core Measures - Per Current guidelines, there needs to be overlap - treatment for the first 5 days of Warfarin therapy. - If discharged on Warfarin prior to 5 days of - overlap therapy, the patient will need to be - assessed for post discharge needs including - *Post discharge parental anticoagulation - *Warfarin and/or parental anticoagulation education - *Follow up date to check INR post discharge At least 5 days overlap therapy as Inpatient No Meds if any: Prescribed or Continued at Discharge Note: Overlap Therapy is Warfarin and Anticoagulant Meds if any: NOT Prescribed or Continued at Discharge
--- NOTE | 2018-05-03 10:00 | Discharge Summary ---
Visit Information Visit Dates Admission Date: 05/02/18 Discharge Date: 05/07/2018 Hospital Course Course Attending Physician: Junito Mcwilliams MD Primary Care Physician: Ede CABAN,Attila Pacheco Hospital Course: Ms. 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 During our clinical interaction, patient denied recent travel/sick contacts, fever/diaphoresis/night sweat/weight change/cough/SOB/Chest Pain/Palpitation/ Abdominal pain/bowel movement or urinary abnormality, or other skin/ musculoskeletal/neurological/mood disorders, or dietary/appetite change. -Smoking: deniend -Alcohol: denied -Rec Drugs: denied On admission, Vitals: stable afebrile, HR 76, RR 18, BP 128/70, 95% under 2LNC -CBC: unremarkable -BMP: hyponatremia 134, elevated Cr 1.1 however at her baseline for the past year -UA/Microbiology: +ve LE/1-5 WBC, no cc of dysuria -Last Echo 11/2016: 1. Aortic sclerosis is present with mild aortic insufficiency and mild dilatation of the ascending aorta. 2. Moderate thickening and calcification of the mitral leaflets is present with anular calcification and eccentric mitral insufficiency which is at least moderate in severity with moderate left atrial enlargement. There appears to be mild systolic prolapse of the anterior mitral leaflet present. 3. There is no significant pericardial fluid present . 4. The left ventricular chamber size is normal with mild to moderate concentric hypertrophy and a normal ejection fraction with no obvious resting wall motion abnormalities. 5. Mild tricuspid insufficiency is present with right atrial enlargement and pulmonary hypertension with an estimated RV systolic pressure of 50 mmHg. -Interventions in ER: NS Bolus x 1 Problem list/Assessment/Hospital Course: #Dehydration w/ possible orthostatic vitals #mild hyponatremia 2/2 dehydration #PMH of COPD not on home oxygen, HTN, Pulm HTN, mitral regurgitation, anxiety/ depression, Hypothyroidism, s/p hysterectomy Patient was initially placed on observation however later on converted to full admission due to PT eval recommended STR placement. Patient was tested for orthostatic vitals and was positive on hospital day 1. Meclizine trial was given along with adequate hydration, and encouraged oral intake, Patient;s hyponatremia improved gradually and dizziness has been resolved with volume repletion and meclizine. Patient was also receiving her daily nebulizer without signs of COPD exacerbation. Patient was held on lasix but continued all other home meds. We would restart lasix on discharge as patient appeared to be fluid overloaded with frothy sputum prior discharge. DVT prophylaxis Heparin SC + ALPS Heart Healthy Diet IV Access: Peripheral IV DNR/DNI Allergies: Coded Allergies: Iodinated Contrast- Oral and IV Dye (Iodinated Contrast Media - IV Dye) (IVP DYE HIVES 03/12/16) Pertinent Lab Results: SERVICE DATE: 05/04/18- EXAM TYPE: RAD - XRY-PORTABLE CHEST XRAY IMPRESSION: Coarse linear markings involving both lungs with a lower lobe predominant distribution presumably representing subsegmental atelectasis or scar. No overt consolidative disease. Stable cardiomegaly. Disposition Summary Disposition Principal Diagnosis: #Dehydration w/ possible orthostatic vitals #mild hyponatremia 2/2 dehydration #PMH of COPD not on home oxygen, HTN, Pulm HTN, mitral regurgitation, anxiety/ depression, Hypothyroidism, s/p hysterectomy Additional Diagnosis: as above Discharge Disposition: SNF Discharge Instructions General Discharge Information Code Status: Do Not Resucitate/Intubat Patient's Diet: Heart Healthy Diet Patient's Activity: As tolerated Follow-Up Instructions/Appts: - Please follow up with your your router machine operator Dr. Flores/Wilton in 05/2018 regarding your water pill dose - Please follow up with your primary care physician within 1-2 weeks of discharge. Inform your primary care physician of this admission to [facility]. - Continue your current medications per discharge instructions. - Please watch for these problems: Fever, Chills, Nausea, Vomiting, Shortness of Breath, Productive Cough, Chest Pain/Discomfort, Abdominal Pain, Active Bleeding or Bloody urine/stool. Medications at Discharge Discharge Medications: Continue taking these medications: Cyanocobalamin (Vitamin B-12) 1,000 MCG TABLET 1 Tablet ORAL DAILY Comments: Last Taken: 05/07/18 Time: 9 AM Albuterol Sulfate (Proair Hfa) 8.5 GM HFA.AER.AD 2 Puff Inhale through mouth Q4H as needed for SOB/WHEEZE Qty = 8 Comments: NOT GIVEN IN HOSPITAL Tiotropium [place] (Spiriva Respimat) 4 GM MIST.INHAL 1 PUFF Inhale through mouth DAILY Comments: NOT GIVEN IN HOSPITAL Ferrous Sulfate (Ferrous Sulfate) 325 MG TABLET 1 Tablet ORAL TAKE AT BEDTIME Comments: Last Taken: 05/07/18 Time: 9 AM Levothyroxine Sodium (Levothyroxine Sodium) 100 MCG TABLET 1 Tablet ORAL DAILY Comments: Last Taken: 05/07/18 Time: 9 AM Trazodone HCl (Trazodone HCl) 50 MG TABLET 0.5 Tablet ORAL THREE TIMES DAILY as needed for ANXIETY Comments: Last Taken: 05/06/18 Time: 9 PM Guaifenesin (Adult Tussin Chest Congestion) (Unknown Strength) LIQUID Unknown Dose ORAL As Directed Comments: NOT GIVEN IN HOSPITAL Melatonin (Melatonin) 3 MG TABLET 1 Tablet ORAL Every night as needed for INSOMNIA Comments: Last Taken: 05/06/18 Time: 830 PM Docusate Sodium (Colace) 100 MG CAPSULE 1 Capsule ORAL EVERY OTHER DAY Comments: Last Taken: 05/07/18 Time: 9 AM Sennosides (Senna) 8.6 MG TABLET 1 Tablet ORAL HS PRN as needed for CONSTIPATION Comments: NOT GIVEN IN HOSPITAL Loratadine/Pseudoephedrine (Claritin-D 12 Hour Tablet) 5 MG-120 MG TAB.ER.12H 1 Tablet ORAL QAM PRN as needed for ALLERGIES Comments: NOT GIVEN IN HOSPITAL Escitalopram Oxalate (Escitalopram Oxalate) 20 MG TABLET 1 Tablet ORAL DAILY Qty = 90 Comments: Last Taken:05/07/18 Time: 9 AM Omeprazole (Omeprazole) 40 MG CAPSULE.DR 1 Tablet ORAL DAILY Qty = 30 Comments: Last Taken: 05/07/18 Time: 5 AM Potassium Chloride (Potassium Chloride) 20 MEQ TAB.ER.PRT 1 Tablet ORAL DAILY as needed for FOR POTASSIUM REPLENISHMENT Qty = 30 Comments: NOT GIVEN IN HOSPITAL Fluticasone/Vilanterol (Breo Ellipta 100-25 Mcg INH) 100 MCG-25 MCG/DOSE BLST.W.DEV 1 Inhalant ORAL DAILY Qty = 1 Comments: NOT GIVEN IN HOSPITAL Albuterol Sulfate (Albuterol Sulfate) 0.63 MG/3 ML VIAL.NEB 1 Vial Inhale Solution 4 TIMES A DAY as needed for SHORTNESS OF BREATH / WHEEZING Qty = 150 Comments: Last Taken: 05/07/18 Time: 4 PM Furosemide (Furosemide) 20 MG TABLET 1 Tablet ORAL Every other day Qty = 30 Comments: Last Taken: 05/07/18 Time: 130 PM Copies To: Ede CABAN,Attila Pacheco Attending MD Review Statement Documenting Attending: Junito Mcwilliams MD
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
[2018-05-03 13:50] VITALS: BP 132/72
[2018-05-03 21:54] VITALS: BP 130/80
[2018-05-04 06:45] VITALS: BP 120/86
--- NOTE | 2018-05-04 08:19 | PN- Housestaff ---
Tyler Clark 05/04/18818: Subjective Follow-up For: dizziness, weakness Subjective: Patient seen and examined at bedside. Around 8:00 last night respiratory therapy came in to see patient and her oxygen sat was 86% room air. Patient was placed on 2 L nasal cannula overnight, and tolerated that with sats in the 93-97 % today. Patient did deny any shortness of breath, coughing, fevers, chills, but states that sometimes she does get short of breath which is been going on for a while. Patient has also asked if she would be able to drive for close home today, states that she is so much to do today including making a bed, and needs to be in motion today. Patient states that her dizziness has resolved somewhat, although still is dizzy when sitting up. Patient also states that she is a very important appointment at 1:00 on for hairdressing so we will have to wait to discharge patient until after appointment. Patient was informed that as she is a patient in the hospital, she cannot leave and come back as needed, especially given her weakness and dizziness. Patient was told that the hairdresser would be able to see her today, and she would be ambulated with nursing staff today. Patient denied fevers/chills/night sweats/chest pain/ abdominal pain/urinary symptoms/lower extremity edema Review of Systems Constitutional: Reports: see HPI. Objective Last 24 Hrs of Vital Signs/I&O Vital Signs Date Time Temp Pulse Resp B/P B/P Pulse O2 O2 Flow FiO2 Mean Ox Delivery Rate 05/04 0922 97 Nasal 1.0L Cannula 05/04 0800 94 Nasal 2.0L Cannula 05/04 0645 98.4 85 20 120/86 94 Nasal 2.0L Cannula 05/04 0158 96 Nasal 2.0L Cannula 05/04 0000 95 Nasal 2.0L Cannula 05/03 2154 96.7 83 18 130/80 95 Nasal 2.0L Cannula 05/03 2004 86 Room Air 05/03 1350 97.8 87 18 132/72 93 Room Air 05/03 1302 Room Air Room Air Intake & Output 05/04 1600 05/04 0800 05/04 0000 Intake Total 720 360 Output Total 400 200 Balance 320 160 Intake, Oral 720 360 Output, Urine 400 200 Physical Exam General Appearance: Alert, Oriented X3, Cooperative, No Acute Distress Skin: No Rashes Cardiovascular: Regular Rate, Normal S1, Normal S2, 3/6 systolic murmur mitral area Lungs: faint expiratory wheeze, b/l lung kaur. Good air movement Abdomen: Soft, No Tenderness Neurological: Normal Speech, Sensation Intact Extremities: No Edema Current Medications: Current Medications Sig/Keesha Start time Last Medication Dose Route Stop Time Status Admin Acetaminophen 650 MG Q6P PRN 05/02 1600 AC PO Albuterol Sulfate 3 ML BID 05/02 2100 AC 05/04 INH 0919 Albuterol Sulfate 2 PUF Q4H PRN 05/02 1730 AC 05/03 INH 1322 Cyanocobalamin 1,000 MCG DAILY 05/03 0900 AC 05/04 PO 0818 Docusate Sodium 100 MG Q48H 05/03 1000 AC 05/03 PO 1116 Escitalopram Oxalate 20 MG DAILY 05/03 0900 AC 05/04 PO 0818 Ferrous Sulfate 325 MG DAILY 05/03 0900 AC 05/04 PO 0818 Heparin Sodium 5,000 UNIT Q8 05/02 2200 AC 05/04 (Porcine) SC 0542 Levothyroxine Sodium 0.1 MG DAILY 05/03 0900 AC 05/04 PO 0542 Meclizine HCl 12.5 MG TID PRN 05/03 0915 AC 05/04 PO 0542 Melatonin 3 MG .STK-MED ONE 05/03 2024 DC PO 05/03 202 Melatonin 3 MG QPM PRN 05/02 1730 AC 05/03 PO 2025 Omeprazole 40 MG DAILY AC 05/03 0700 AC 05/04 PO 0542 Sodium Chloride 1,000 ML Q10H 05/02 1600 DC 05/03 IV 05/03 1159 0242 Trazodone HCl 25 MG TID PRN 05/02 1730 AC 05/04 PO 0542 Last 24 Hrs of Lab/Contreras Results Last 24 Hrs of Labs/Mics: Microbiology 05/03 1240 URINE ROUT: Urine Culture - RES Assessment/Plan Assessment: Ms. 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 Patient was found to be orthostatic, placed in observation for dehydration/weakness, and switched to admission today for weakness, awaiting STR placement. #Dehydration with orthostatic vitals , will reorder today No edema or signs of fluid overload continue working with PT -UCX NGTD #Hyponatremia #COPD TRC as needed. on 2 L of oxygen with good saturations. Will titrate downwards as needed. DNR/DNI IV access Tolerating regular diet DVT prophylaxis Dispositionto STR Problem List: 1. Dizziness 2. Hyponatremia 3. COPD (chronic obstructive pulmonary disease) Pain Ratin Pain Location: na Pain Goal: Pain 4 or less Pain Plan: pathway Tomorrow's Labs & Rationales: keyla EarlyJunito foreman 05/04/18 1035: Attending MD Review Statement Attending Statement Attending MD Statement: examined this patient, discuss w/resident/PA/DIRECTOR AIRPORT, agreed w/resident/PA/DIRECTOR AIRPORT, discussed with family, reviewed EMR data (avail), discussed with nursing, discussed with case mgmt, reviewed images, amended to note Attending Assessment/Plan: Patient seen/examined bedside. Patient c/o dizziness which is better than admission with meclizine. and generalised weakness. She is orthostatic positive. She received hydration during the hospital stay. Overnight c/o hypoxemia. afebrile. Now on oxygen suppelementation, obtain chest xray. Incentive spirometry. TRCs. PT consult obtained and recommend rehab placement. gi/dvt prophyalxis DNR/DNI. Update family.
--- NOTE | 2018-05-04 13:57 | RADIOLOGY REPORT ---
EXAMINATION: XR PORTABLE CHEST CLINICAL INFORMATION: Recent desaturation. Evaluate for infiltrate. COMPARISON: Chest radiograph 03/15/2017. TECHNIQUE: Portable frontal view of the chest was obtained. FINDINGS: The cardiac silhouette is enlarged but unchanged from prior imaging. There are coarse reticular markings involving both lungs with a lower lobe predominant distribution presumably representing subsegmental atelectasis or scar. No overt consolidation. No pneumothorax. The upper mediastinal contours are stable. No acute osseous finding. IMPRESSION: Coarse linear markings involving both lungs with a lower lobe predominant distribution presumably representing subsegmental atelectasis or scar. No overt consolidative disease. Stable cardiomegaly.
[2018-05-04 14:37] VITALS: BP 137/67
[2018-05-04 20:56] VITALS: BP 126/72
[2018-05-05 06:18] VITALS: BP 140/66
--- NOTE | 2018-05-05 07:55 | PN- Housestaff ---
Tyler Clark 05/05/18 0755: Subjective Follow-up For: weakness, dizziness Subjective: Patient seen and evaluated bedside. Overnight, patient did have an episode of nausea and vomiting. Patient states that she worked herself up because she was thinking about all the changes that were going to happen her life, was very anxious, and vomited. She was given Tigan, which resolved the nausea. Patient states that she is not nauseous at this time. Patient does state that she has a sour taste in her mouth, although attributes it to the morning pill she took. Patient continues to be anxious about rehab, states that she does not want to lose her routine. States that the dizziness is significantly better than admission. States that she would like to walk around more today. Patient denies fever/chills/night sweats/chest pain/abdominal pain/urinary symptoms/ lower extremity edema Review of Systems Constitutional: Reports: see HPI. Objective Last 24 Hrs of Vital Signs/I&O Vital Signs Date Time Temp Pulse Resp B/P B/P Pulse O2 O2 Flow FiO2 Mean Ox Delivery Rate 05/05 0800 91 Nasal 1.0L Cannula 05/05 0618 98.4 74 20 140/66 95 Nasal Cannula 05/05 0000 Nasal 1.0L Cannula 05/04 2056 97.8 84 18 126/72 93 Nasal 1.0L Cannula 05/04 1850 90 Room Air 05/04 1600 95 Room Air 05/04 1437 97.7 81 18 137/67 95 Room Air 05/04 0922 97 Nasal 1.0L Cannula Intake & Output 05/05 1600 05/05 0800 05/05 0000 Intake Total 120 300 Output Total 300 400 Balance -180 -100 Intake, Oral 120 300 Output, Urine 300 400 Physical Exam General Appearance: Alert, Oriented X3, Cooperative, No Acute Distress Skin: No Rashes Skin Temp/Moisture Exam: Warm/Dry Cardiovascular: Regular Rate, Normal S1, Normal S2, 3/6 systolic murmur best heard in mitral region Lungs: Clear to Auscultation, Normal Air Movement Abdomen: Soft, No Tenderness Neurological: Normal Speech, Sensation Intact Extremities: No Edema Current Medications: Current Medications Sig/Keesha Start time Last Medication Dose Route Stop Time Status Admin Acetaminophen 650 MG Q6P PRN 05/02 1600 AC PO Albuterol Sulfate 3 ML BID 05/02 2100 AC 05/05 INH 0759 Albuterol Sulfate 2 PUF Q4H PRN 05/02 1730 AC 05/03 INH 1322 Cyanocobalamin 1,000 MCG DAILY 05/03 0900 AC 05/04 PO 0818 Docusate Sodium 100 MG Q48H 05/03 1000 AC 05/03 PO 1116 Escitalopram Oxalate 20 MG DAILY 05/03 0900 AC 05/04 PO 0818 Ferrous Sulfate 325 MG DAILY 05/03 0900 AC 05/04 PO 0818 Heparin Sodium 5,000 UNIT Q8 05/02 2200 AC 05/05 (Porcine) SC 0544 Levothyroxine Sodium 0.1 MG DAILY 05/03 0900 AC 05/04 PO 0542 Meclizine HCl 12.5 MG TID PRN 05/03 0915 AC 05/04 PO 0542 Melatonin 3 MG .STK-MED ONE 05/04 2331 DC PO 05/04 2332 Melatonin 3 MG QPM PRN 05/02 1730 AC 05/04 PO 2333 Omeprazole 40 MG DAILY AC 05/03 07 AC 05/05 PO 0544 Patient Medication 1 ED ONE ONE 05/04 1645 DC Teaching ED 05/04 1646 Trazodone HCl 25 MG TID PRN 05/02 1730 AC 05/04 PO 0542 Trimethobenzamide HCl 200 MG ONCE ONE 05/05 0445 DC IM 05/05 0446 Assessment/Plan Assessment: Ms. 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 Patient was found to be orthostatic, placed in observation for dehydration/weakness, and switched to admission today for weakness, awaiting STR placement. #Dehydration with orthostatic vitals , will reorder today No edema or signs of fluid overload continue working with PT -UCX NGTD #Hyponatremia #COPD TRC as needed. on 1 L of oxygen with good saturations. Will titrate downwards as needed. -05/04 CXR negative -TRC, Incentive spirometry DNR/DNI IV access Tolerating regular diet DVT prophylaxis Dispositionto STR, likely tomorrow Problem List: 1. Dizziness 2. Hyponatremia Pain Ratin Pain Location: na Pain Goal: Pain 4 or less Pain Plan: pathway Tomorrow's Labs & Rationales: keyla Junito Mcwilliams 05/05/18 1038: Attending MD Review Statement Attending Statement Attending MD Statement: examined this patient, discuss w/resident/PA/BINDER ROLLER, agreed w/resident/PA/BINDER ROLLER, discussed with family, reviewed EMR data (avail), discussed with nursing, discussed with case mgmt, reviewed images, amended to note Attending Assessment/Plan: No new complaints reported. Continue current care. Chest xrya noted with possible atelectasis or scar. No fever, tachycardia. She is receiving her TRCs. Anticipate discharge to [facility] in 24 hrs.
[2018-05-05 14:44] VITALS: BP 154/88
[2018-05-05 21:16] VITALS: BP 136/74
[2018-05-06 06:32] VITALS: BP 158/82
--- NOTE | 2018-05-06 07:12 | PN- Housestaff ---
See Addendum Subjective Follow-up For: weakness, dizziness Subjective: Seen and examined at bedside. Overnight, patient states that she again had an anxiety attack. Patient states that she was worried about how she would move, who would pick pulling machine tender her close, how she would get from the hospital to rehab. Patient states that she is very anxious and scared about the move. 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 Patient also complains that she is nauseous. When asked further about that, patient states that she thinks it is all due to anxiety. Patient states that she is a worrier, and she has been dealing with this for a while. Patient does state that she walked more yesterday than she did during any time on admission. Patient states that she still somewhat dizzy, although the meclizine is helping. Patient also complains that her nose is dry, asked for saline spray. Denied fevers/chills/night sweats/chest pain/abdominal pain/urinary symptoms/lower extremity edema. Review of Systems Constitutional: Reports: see HPI. Objective Last 24 Hrs of Vital Signs/I&O Vital Signs Date Time Temp Pulse Resp B/P B/P Pulse O2 O2 Flow FiO2 Mean Ox Delivery Rate 05/06 0632 97.7 86 20 158/82 96 Nasal Cannula 05/06 0251 87 Nasal 1.0L Cannula 05/06 0000 94 Nasal 1.0L Cannula 05/05 2116 98.2 90 20 136/74 93 Nasal 1.0L Cannula 05/05 1857 95 Nasal 2.0L Cannula 05/05 1444 97.5 89 18 154/88 94 Nasal 1.0L Cannula Intake & Output 05/06 1600 05/06 0800 05/06 0000 Intake Total 120 120 Output Total 250 Balance 120 -130 Intake, Oral 120 120 Number 1 Bowel Movements Output, Urine 250 Physical Exam General Appearance: Alert, Oriented X3, Cooperative, No Acute Distress Skin: No Rashes Skin Temp/Moisture Exam: Warm/Dry Cardiovascular: Regular Rate, Normal S1, Normal S2, 3/6 systolic murmur mitral region Lungs: faint exp wheeze b/l ll Abdomen: Soft, No Tenderness Neurological: Normal Speech, Sensation Intact Extremities: No Edema Current Medications: Current Medications Sig/Keesha Start time Last Medication Dose Route Stop Time Status Admin Acetaminophen 650 MG Q6P PRN 05/02 1600 AC PO Albuterol Sulfate 3 ML BID 05/02 2100 AC 05/06 INH 0239 Albuterol Sulfate 2 PUF Q4H PRN 05/02 1730 AC 05/05 INH 1542 Cyanocobalamin 1,000 MCG DAILY 05/03 0900 AC 05/05 PO 0833 Docusate Sodium 100 MG Q48H 05/03 1000 AC 05/05 PO 0833 Escitalopram Oxalate 20 MG DAILY 05/03 0900 AC 05/05 PO 0833 Ferrous Sulfate 325 MG DAILY 05/03 0900 AC 05/05 PO 0833 Heparin Sodium 5,000 UNIT Q8 05/02 2200 AC 05/06 (Porcine) SC 0539 Levothyroxine Sodium 0.1 MG DAILY 05/03 0900 AC 05/05 PO 0833 Meclizine HCl 12.5 MG TID PRN 05/03 0915 AC 05/04 PO 0542 Melatonin 3 MG QPM PRN 05/02 1730 AC 05/04 PO 2333 Omeprazole 40 MG DAILY AC 05/03 0700 AC 05/06 PO 0539 Sodium Chloride 2 SPRAY Q4P PRN 05/06 0800 AC MARIANA Trazodone HCl 25 MG TID PRN 05/02 1730 AC 05/05 PO 2142 Last 24 Hrs of Lab/Contreras Results Last 24 Hrs of Labs/Mics: Laboratory Tests 05/05/18 0803: Anion Gap 9, Estimated GFR > 60, BUN/Creatinine Ratio 8.8 Assessment/Plan Assessment: Ms. Tong is a 87yo F w/ PMH of COPD not on home oxygen, HTN, Pulm HTN, mitral regurgitation, anxiety/depression, Hypothyroidism, s/p hysterectomy, [facility] with of dizziness and general weakness x 1 day. Patient was found to be orthostatic, placed in observation for dehydration/weakness, and switched to admission for weakness, awaiting STR placement. #Dehydration with orthostatic vitals -Orthostatics ordered today to see if improvement No edema or signs of fluid overload continue working with PT -UCX NGTD #Hyponatremia #COPD TRC as needed. -05/04 CXR negative -Pt attributes overnight desaturations to anxiety -TRC, Incentive spirometry DNR/DNI IV access Tolerating regular diet DVT prophylaxis Dispositionto STR, likely today Problem List: 1. Dizziness Pain Ratin Pain Location: na Pain Goal: Pain 4 or less Pain Plan: pathway Tomorrow's Labs & Rationales: na
[2018-05-06 21:07] VITALS: BP 132/80
--- NOTE | 2018-05-07 06:12 | RADIOLOGY REPORT ---
EXAMINATION: CHEST 1 VIEW CLINICAL INFORMATION: Wheezing. Respiratory distress. COMPARISON: May 04, 2018. TECHNIQUE: An AP view of the chest is provided. FINDINGS: The cardiac silhouette is enlarged, though stable. There is persistent airspace disease at the left lung base. A left pleural effusion cannot be excluded. There has been an increase in prominence of interstitial lung markings with a small amount of fluid noted within the right minor fissure. The osseous structures are stable. IMPRESSION: Interval increase in prominence of interstitial lung markings likely indicative of progression in vascular congestion. Stable cardiomegaly. Persistent airspace disease at the left lung base. Cannot exclude small left pleural effusion. Small amount of right intrafissural fluid.
[2018-05-07 07:27] VITALS: BP 128/92
--- NOTE | 2018-05-07 08:32 | PN- Housestaff ---
Tyler Clark 05/07/18 0832: Subjective Follow-up For: weakness, dizziness Subjective: Patient states she had an awful night last night. Patient states that she coughed up pink frothy sputum around 6 AM this morning. Around 1:00, I was called and patient's room for guaiac positive sputum. Patient did have wheezes on exam. Nebulizer was ordered, and patient's p.o. Lasix was restarted. Patient is without fevers, denied chills/night sweats/chest pain/abdominal pain/ lower extremity edema. Review of Systems Constitutional: Reports: see HPI. Objective Last 24 Hrs of Vital Signs/I&O Vital Signs Date Time Temp Pulse Resp B/P B/P Pulse O2 O2 Flow FiO2 Mean Ox Delivery Rate 05/07 1322 98.2 88 20 146/90 95 Nasal 1.0L Cannula 05/07 0934 93 Nasal 1.0L Cannula 05/07 0800 Nasal 1.0L Cannula 05/07 07 97.5 94 20 128/92 95 05/07 0542 91 Nasal 1.5L Cannula 05/07 0000 94 Nasal 1.5L Cannula 05/06 2107 97.9 83 20 132/80 93 Nasal 1.0L Cannula 05/06 1650 90 Nasal 1.0L Cannula 05/06 1600 95 Nasal 1.0L Cannula Intake & Output 05/07 1600 05/07 0800 05/07 0000 Intake Total 120 120 Output Total 20 Balance 120 100 Intake, Oral 120 120 Number 1 1 Bowel Movements Output, Urine 20 Physical Exam General Appearance: Alert, Oriented X3, Cooperative, Mild Distress Skin: No Rashes Skin Temp/Moisture Exam: Warm/Dry Sepsis Skin Exam (color): Pale Cardiovascular: Regular Rate, Normal S1, Normal S2 Lungs: wheeze all lung kaur Abdomen: Soft, No Tenderness Neurological: Normal Speech, Sensation Intact Extremities: No Edema Current Medications: Current Medications Sig/Keesha Start time Last Medication Dose Route Stop Time Status Admin Acetaminophen 650 MG Q6P PRN 05/02 1600 AC PO Albuterol Sulfate 3 ML BID 05/02 2100 AC 05/07 INH 0806 Albuterol Sulfate 2 PUF Q4H PRN 05/02 1730 AC 05/07 INH 0918 Cyanocobalamin 1,000 MCG DAILY 05/03 0900 AC 05/07 PO 0917 Docusate Sodium 100 MG Q48H 05/03 1000 AC 05/07 PO 0917 Escitalopram Oxalate 20 MG DAILY 05/03 0900 AC 05/07 PO 0917 Ferrous Sulfate 325 MG DAILY 05/03 0900 AC 05/07 PO 09 Furosemide 20 MG DAILY 05/07 1400 AC PO Heparin Sodium 5,000 UNIT Q8 05/02 2200 AC 05/07 (Porcine) SC 0512 Levothyroxine Sodium 0.1 MG DAILY 05/03 0900 AC 05/07 PO 09 Meclizine HCl 12.5 MG TID PRN 05/03 0915 AC 05/07 PO 1251 Melatonin 3 MG .STK-MED ONE 05/06 2043 DC PO 05/06 2044 Melatonin 3 MG QPM PRN 05/02 1730 AC 05/06 PO 204 Omeprazole 40 MG DAILY AC 05/03 0700 AC 05/07 PO 0512 Patient Medication 1 ED ONE ONE 05/06 1645 DC 05/06 Teaching ED 05/06 1646 1913 Sodium Chloride 2 SPRAY Q4P PRN 05/06 0800 AC MARIANA Trazodone HCl 25 MG TID PRN 05/02 1730 AC 05/06 PO 2044 Last 24 Hrs of Lab/Contreras Results Last 24 Hrs of Labs/Mics: Microbiology 05/07 1145 LOWER RESP: Respiratory Culture - RES 05/07 1145 LOWER RESP: Gram Stain - RES Assessment/Plan Assessment: Ms. Tong is a 87yo F w/ PMH of COPD not on home oxygen, HTN, Pulm HTN, mitral regurgitation, anxiety/depression, Hypothyroidism, s/p hysterectomy, presented to ER from local [facility] living with cc of dizziness and general weakness x 1 day. Patient was found to be orthostatic, placed in observation for dehydration/weakness, and switched to admission for weakness, awaiting STR placement. #Dehydration with orthostatic vitals -Orthostatics ordered today to see if improvement No edema or signs of fluid overload continue working with PT -UCX NGTD #Hyponatremia #COPD TRC as needed. -05/04 CXR negative -Pt attributes overnight desaturations to anxiety -TRC, Incentive spirometry #Recent desats with frothy sputum -Restarted on home lasix dose of 20mg. -TRC, NEBS PRN -On 1L NC DNR/DNI IV access Tolerating regular diet DVT prophylaxis Dispositionto STR, insurance issues Problem List: 1. Dizziness Pain Ratin Pain Location: na Pain Goal: Pain 4 or less Pain Plan: pathway Tomorrow's Labs & Rationales: keyla Junito Mcwilliams 05/07/18 1059: Attending MD Review Statement Attending Statement Attending MD Statement: examined this patient, discuss w/resident/PA/MOTOR BUS DRIVER, agreed w/resident/PA/MOTOR BUS DRIVER, discussed with family, reviewed EMR data (avail), discussed with nursing, discussed with case mgmt, reviewed images, amended to note Attending Assessment/Plan: Medically stable. Vitals stable. She is on her frequent TRCs for her COPD. She can be dsicharge to rehab facility pending insurance approval. Continue working with PT. Continue with home meds at discharge.
[2018-05-07 13:22] VITALS: BP 146/90
[2018-05-07 17:21] VITALS: BP 146/90
== END 2018-05-07 17:43 | DRG 641 ==
LOC: ERH 10:54 → ERHI 15:24 → 2NB 15:24 → ENRESERV 15:47 → ENTRNSPT 17:20 → EDTRNSPT 17:25 → EDTRNSPTSTS 17:25 → 2NB 17:34 → CMPTRNSPT 17:46 → 2NB 05-03 07:43 → ENPENDDIS 05-07 16:37 → 2NB 05-07 17:43
PROVIDERS: Emergency Medicine
DX: E86.0 Dehydration (principal); I50.32 Chronic diastolic (congestive) heart failure; I11.0 Hypertensive heart disease with heart failure; E87.1 Hypo-osmolality and hyponatremia; I27.20 Pulmonary hypertension, unspecified; I95.1 Orthostatic hypotension; R09.02 Hypoxemia; F32.9 Major depressive disorder, single episode, unspecified; F41.9 Anxiety disorder, unspecified; E03.9 Hypothyroidism, unspecified; Z90.710 Acquired absence of both cervix and uterus; I34.0 Nonrheumatic mitral (valve) insufficiency; Z91.041 Radiographic dye allergy status; Z79.51 Long term (current) use of inhaled steroids; D64.9 Anemia, unspecified; H35.30 Unspecified macular degeneration; Z66 Do not resuscitate
CPT/HCPCS: 2NBSP; 36592; 71045; 81001; 82436; 87070; 87086; 93005; 93010; 96360; 96361; 97110-GO; 97116-GO; 97161-GP; 97530-GO; J1644; J1885; J3101; J3490